=== PATIENT | male | born 1935 | race Caucasian/White ===

== ENCOUNTER 2018-01-14 22:13 | Inpatient (IN) | payer MEDICARE, BC ==
[2018-01-15 00:12] LABS: ADD MAN DIFF? NO
[2018-01-15 00:19] LABS: BASOPHIL # 0.1 10^3/ul (0.0-0.1); BASOPHILS % 0.4 % (0.0-2.0); EOSINOPHILS # 0.1 10^3/ul (0.0-0.5); EOSINOPHILS % 0.4 % (0.0-7.0); HEMOGLOBIN 14.2 g/dl (14.0-18.0); IMMATURE GRANS #M 0.04 10^3/ul; IMMATURE GRANS % (M) 0.3 %; LYMPHOCYTES # 3.4 10^3/ul (0.8-2.9); LYMPHOCYTES % 24.9 % (15.0-51.0); MEAN CORPUSCULAR HEMOGLOBIN 26.2 pg (29.0-33.0); MEAN CORPUSCULAR HGB CONC 31.6 g/dl (32.0-37.0); MEAN CORPUSCULAR VOLUME 83.2 fl (82.0-101.0); MEAN PLATELET VOLUME 10.8 fl (7.4-10.4); MONOCYTE # 1.2 10^3/ul (0.3-0.9); MONOCYTES % 8.7 % (0.0-11.0); NEUTROPHILS % 65.3 % (39.0-77.0); PLATELET COUNT 263 10^3/UL (140-415); RED BLOOD COUNT 5.41 10^6/ul (4.70-6.10)
[2018-01-15 00:19] LABS: WHITE BLOOD COUNT 13.7 10^3/ul (4.8-10.8)
[2018-01-15 00:36] LABS: INR 1.02; PROTIME 13.5 Sec (11.9-14.9); PT RATIO 1.1
[2018-01-15 00:37] LABS: PARTIAL THROMBOPLASTIN TIME 27.9 Sec (25.0-35.0)
[2018-01-15 00:41] LABS: ALANINE AMINOTRANSFERASE 25 IU/L (13-69); ALBUMIN 4.4 g/dl (3.3-4.9); ALBUMIN/GLOBULIN RATIO 0.95; ALKALINE PHOSPHATASE 125 IU/L (42-121); ANION GAP 17 (8-16); ASPARTATE AMINO TRANSFERASE 25 IU/L (15-46); BILIRUBIN,INDIRECT 0.6 mg/dl (0-1.1); BILIRUBIN,TOTAL 0.6 mg/dl (0.2-1.3); BLOOD UREA NITROGEN 17 mg/dl (7-20); CALCIUM 9.7 mg/dl (8.4-10.2); CARBON DIOXIDE 28 mmol/L (21-31); CHLORIDE 98 mmol/L (97-110); CREATININE 0.83 mg/dl (0.61-1.24); GLUCOSE 185 mg/dl (70-220); POTASSIUM 4.2 mmol/L (3.5-5.1); SODIUM 139 mmol/L (135-144)
[2018-01-15 00:44] LABS: LACTIC ACID 2.3 mmol/L (0.5-2.0)
[2018-01-15 00:52] LABS: TROPONIN-I 0.047 ng/ml (0.000-0.120)
[2018-01-15] MEDS: LEVOFLOXACIN 750MG/D5W (PMX) 150 ML IVPB (01:56)
[2018-01-15] MEDS: SODIUM CHLORIDE 0.9% 1L BAG IV* (01:56)
[2018-01-15] MEDS: VANCOMYCIN 1 GM (PMX) 250 ML IVPB (01:58)
[2018-01-15 04:14] LABS: LACTIC ACID 2.6 mmol/L (0.5-2.0)
[2018-01-15] MEDS ORDERED: MAGNESIUM HYDROXIDE 30ML CUP PO (05:00)
[2018-01-15] MEDS ORDERED: VANCOMYCIN IV PER PHARMACY XX (05:00)
[2018-01-15] MEDS ORDERED: ACETAMINOPHEN 500 MG TAB PO (05:00)
[2018-01-15] MEDS ORDERED: BISACODYL 10 MG SUPP PR (05:00)
[2018-01-15] MEDS ORDERED: ACETAMINOPHEN 325 MG TAB PO (05:00)
[2018-01-15] MEDS: SOD CHLORIDE 0.45% 1,000 ML IV ×3 (05:52→23:06)
[2018-01-15] MEDS ORDERED: DEXTROSE 50% 50 ML SYRINGE IV ×2 (06:00)
[2018-01-15] MEDS ORDERED: INSULIN DETEMIR [LEVEMIR] (100 UNITS/ML) SYG SC (06:00)
[2018-01-15] MEDS ORDERED: GLUCOSE GEL 15 GRAM TUBE PO (06:00)
[2018-01-15] MEDS ORDERED: GLUCOSE GEL 15 GRAM TUBE BUCCAL (06:00)
[2018-01-15] MEDS ORDERED: GLUCAGON 1 MG INJ IM (06:00)
[2018-01-15] MEDS ORDERED: PENDING SANTYL ORDER FOR WOUND CARE XX (07:30)
[2018-01-15] MEDS: INSULIN ASPART [NOVOLOG] 3 ML PEN SC ×4 (08:00→20:35)
[2018-01-15] MEDS: ALBUTEROL/IPRATROPIUM (NEB) 3 ML AMP HHN ×3 (08:16→19:24)
[2018-01-15] MEDS ORDERED: [UNRECOGNIZED DRUG - OTHER] PO (09:00)
[2018-01-15] MEDS ORDERED: NUT TX GLUC INTOLER LAC FR SOY PO (09:00)
[2018-01-15] MEDS ORDERED: NON-FORMULARY/PATIENT OWN MED (Clopidogrel Bisulfate* 75 MG) PO (09:00)
[2018-01-15] MEDS ORDERED: NON-FORMULARY/PATIENT OWN MED (Multivitamin with Minerals (Multivitamins with Minerals) 1 PO (09:00)
[2018-01-15] MEDS ORDERED: NON-FORMULARY/PATIENT OWN MED (Cranberry Extract (Cranberry) 425 MG) PO (09:00)
[2018-01-15] MEDS: CLOPIDOGREL 75 MG TAB PO (09:08)
[2018-01-15] MEDS: MULTIVITAMINS/MINERALS TAB PO (09:08)
[2018-01-15] MEDS: CHOLECALCIFEROL 1,000 UNIT TAB PO (09:08)
[2018-01-15] MEDS: METOPROLOL (XL) 25 MG TAB PO (09:08)
[2018-01-15] MEDS: ASCORBIC ACID 500 MG TAB PO (09:08)
[2018-01-15] MEDS: ENOXAPARIN 30 MG/0.3 ML SYG SC (09:09)
[2018-01-15] MEDS: INSULIN DETEMIR [LEVEMIR] (100 UNITS/ML) SYG SC ×2 (09:09→21:00)
[2018-01-15] MEDS: VANCOMYCIN 1.25 GM in SOD CHLORIDE 0.9% 250 ML IVPB (09:20)
[2018-01-15 10:28] LABS: ADD MAN DIFF? NO
[2018-01-15 10:44] LABS: BASOPHILS % 0.3 % (0.0-2.0); EOSINOPHILS # 0.1 10^3/ul (0.0-0.5); EOSINOPHILS % 0.7 % (0.0-7.0); HEMATOCRIT 37.4 % (42.0-52.0); HEMOGLOBIN 11.9 g/dl (14.0-18.0); LYMPHOCYTES # 2.3 10^3/ul (0.8-2.9); LYMPHOCYTES % 22.3 % (15.0-51.0); MEAN CORPUSCULAR HEMOGLOBIN 26.2 pg (29.0-33.0); MEAN CORPUSCULAR HGB CONC 31.8 g/dl (32.0-37.0); MEAN CORPUSCULAR VOLUME 82.4 fl (82.0-101.0); MEAN PLATELET VOLUME 10.9 fl (7.4-10.4); MONOCYTE # 1.5 10^3/ul (0.3-0.9); MONOCYTES % 14.3 % (0.0-11.0); NEUTROPHIL # 6.3 10^3/ul (1.6-7.5); PLATELET COUNT 206 10^3/UL (140-415); RED BLOOD COUNT 4.54 10^6/ul (4.70-6.10); RED CELL DISTRIBUTION WIDTH 15.2 % (11.5-14.5)
[2018-01-15 10:44] LABS: WHITE BLOOD COUNT 10.2 10^3/ul (4.8-10.8)
[2018-01-15 10:59] LABS: LACTIC ACID 1.2 mmol/L (0.5-2.0)
[2018-01-15 11:09] LABS: ANION GAP 15 (8-16); BLOOD UREA NITROGEN 14 mg/dl (7-20); CALCIUM 8.8 mg/dl (8.4-10.2); CARBON DIOXIDE 25 mmol/L (21-31); CHLORIDE 106 mmol/L (97-110); CREATININE 0.71 mg/dl (0.61-1.24); GLUCOSE 132 mg/dl (70-220); SODIUM 142 mmol/L (135-144)
[2018-01-15] MEDS: DIGOXIN 0.125 MG TAB PO (13:18)
[2018-01-15] MEDS: metFORMIN 500 MG TAB PO (17:26)
[2018-01-15 17:46] LABS: ADD UMIC NO; UR ASCORBIC ACID 40 mg/dL (NEGATIVE); UR BILIRUBIN (Dip) NEGATIVE (NEGATIVE); UR BLOOD (Dip) NEGATIVE (NEGATIVE); UR CLARITY CLEAR (CLEAR); UR COLOR YELLOW (YELLOW); UR GLUCOSE (Dip) NEGATIVE (NEGATIVE); UR KETONES (Dip) NEGATIVE (NEGATIVE); UR LEUKOCYTE ESTERASE (Dip) NEGATIVE Leu/ul (NEGATIVE); UR NITRITE (Dip) NEGATIVE (NEGATIVE); UR SPECIFIC GRAVITY (Dip) 1.009 (1.003-1.030); UR TOTAL PROTEIN (Dip) NEGATIVE (NEGATIVE); UR UROBILINOGEN (Dip) NEGATIVE (NEGATIVE)
[2018-01-15 19:50] LABS: CREATINE KINASE 32 IU/L (23-200)
[2018-01-15 20:00] LABS: CK INDEX 2.3; CK-MB 0.75 ng/ml (0.0-2.4); TROPONIN-I 0.035 ng/ml (0.000-0.120)
[2018-01-15] MEDS: DOCUSATE SODIUM 100 MG CAP PO (20:35)
[2018-01-15] MEDS: MIRTAZAPINE 15 MG TAB PO (20:36)
[2018-01-15] MEDS: QUETIAPINE 100 MG TAB PO (20:36)
[2018-01-15] MEDS: METOPROLOL (XL) 50 MG TAB PO (20:36)
[2018-01-15] MEDS: ATORVASTATIN 10 MG TAB PO (20:36)
[2018-01-15] MEDS: ARTIFICIAL TEARS 15 ML OPH BOTH EYES (20:37)
[2018-01-16 01:20] LABS: CREATINE KINASE 33 IU/L (23-200)
[2018-01-16 01:36] LABS: CK INDEX 2.4; CK-MB 0.79 ng/ml (0.0-2.4); TROPONIN-I 0.042 ng/ml (0.000-0.120)
[2018-01-16] MEDS: ACCU-CHEK XX (01:56)
[2018-01-16] MEDS: ALBUTEROL/IPRATROPIUM (NEB) 3 ML AMP HHN ×4 (02:13→21:08)
[2018-01-16] MEDS: LEVOFLOXACIN 750MG/D5W (PMX) 150 ML IVPB (06:23)
[2018-01-16] MEDS: INSULIN ASPART [NOVOLOG] 3 ML PEN SC ×4 (08:00→21:00)
[2018-01-16] MEDS ORDERED: VANCOMYCIN 1 GM 250 ML IVPB (08:00)
[2018-01-16] MEDS: metFORMIN 500 MG TAB PO ×2 (08:57→18:27)
[2018-01-16] MEDS: LINAGLIPTIN 5 MG TABLET PO (08:57)
[2018-01-16] MEDS: MULTIVITAMINS/MINERALS TAB PO (08:58)
[2018-01-16] MEDS: CLOPIDOGREL 75 MG TAB PO (08:59)
[2018-01-16] MEDS: CHOLECALCIFEROL 1,000 UNIT TAB PO (08:59)
[2018-01-16] MEDS: ARTIFICIAL TEARS 15 ML OPH BOTH EYES ×2 (08:59→21:21)
[2018-01-16] MEDS: ASCORBIC ACID 500 MG TAB PO (08:59)
[2018-01-16] MEDS: VANCOMYCIN 1.25 GM in SOD CHLORIDE 0.9% 250 ML IVPB (08:59)
[2018-01-16] MEDS: INSULIN DETEMIR [LEVEMIR] (100 UNITS/ML) SYG SC ×2 (09:01→21:00)
[2018-01-16] MEDS: METOPROLOL (XL) 50 MG TAB PO ×2 (09:01→21:20)
[2018-01-16] MEDS: ENOXAPARIN 40 MG/0.4 ML SYG SC (09:02)
[2018-01-16 10:05] LABS: ADD MAN DIFF? NO; BASOPHILS % 0.3 % (0.0-2.0); EOSINOPHILS # 0.1 10^3/ul (0.0-0.5); EOSINOPHILS % 1.3 % (0.0-7.0); HEMATOCRIT 40.8 % (42.0-52.0); HEMOGLOBIN 12.8 g/dl (14.0-18.0); LYMPHOCYTES # 2.3 10^3/ul (0.8-2.9); LYMPHOCYTES % 25.3 % (15.0-51.0); MEAN CORPUSCULAR HEMOGLOBIN 26.2 pg (29.0-33.0); MEAN CORPUSCULAR HGB CONC 31.4 g/dl (32.0-37.0); MEAN CORPUSCULAR VOLUME 83.4 fl (82.0-101.0); MEAN PLATELET VOLUME 10.9 fl (7.4-10.4); NEUTROPHIL # 5.5 10^3/ul (1.6-7.5); NEUTROPHILS % 61.8 % (39.0-77.0); PLATELET COUNT 219 10^3/UL (140-415); RED BLOOD COUNT 4.89 10^6/ul (4.70-6.10); RED CELL DISTRIBUTION WIDTH 15.2 % (11.5-14.5)
[2018-01-16 10:05] LABS: WHITE BLOOD COUNT 8.9 10^3/ul (4.8-10.8)
[2018-01-16 10:21] LABS: ANION GAP 15 (8-16); BLOOD UREA NITROGEN 12 mg/dl (7-20); CALCIUM 9.1 mg/dl (8.4-10.2); CARBON DIOXIDE 28 mmol/L (21-31); CHLORIDE 105 mmol/L (97-110); CREATININE 0.76 mg/dl (0.61-1.24); GLUCOSE 116 mg/dl (70-220); SODIUM 144 mmol/L (135-144)
[2018-01-16 10:25] LABS: CHOLESTEROL 104 mg/dl (100-200)
[2018-01-16 10:25] LABS: CHOL/HDL RATIO 4.9 RATIO; HDL CHOLESTEROL 21 mg/dl (31-75); LDL CHOLESTEROL,CALCULATED 70 mg/dl; TRIGLYCERIDES 63 mg/dl (0-149)
[2018-01-16 10:29] LABS: CREATINE KINASE 58 IU/L (23-200)
[2018-01-16 10:34] LABS: CK INDEX 2.4; CK-MB 1.42 ng/ml (0.0-2.4); TROPONIN-I 0.042 ng/ml (0.000-0.120)
[2018-01-16] MEDS: DIGOXIN 0.125 MG TAB PO (12:33)
[2018-01-16] MEDS: SOD CHLORIDE 0.45% 1,000 ML IV (15:10)
[2018-01-16] MEDS: QUETIAPINE 100 MG TAB PO (21:19)
[2018-01-16] MEDS: DOCUSATE SODIUM 100 MG CAP PO (21:19)
[2018-01-16] MEDS: MIRTAZAPINE 15 MG TAB PO (21:20)
[2018-01-16] MEDS: ATORVASTATIN 10 MG TAB PO (21:28)
[2018-01-16] MEDS: METHYLPREDNISOLONE 125 MG INJ IV (23:14)
[2018-01-16] MEDS: LORAZEPAM 2 MG INJ IV (23:37)
[2018-01-17] MEDS: ALBUTEROL/IPRATROPIUM (NEB) 3 ML AMP HHN ×6 (01:05→20:15)
[2018-01-17] MEDS: ACCU-CHEK XX (01:55)
[2018-01-17] MEDS: LEVOFLOXACIN 750MG/D5W (PMX) 150 ML IVPB (05:29)
[2018-01-17 06:11] LABS: ADD MAN DIFF? NO
[2018-01-17 06:43] LABS: ABNORMAL IP MESSAGE 1; BASOPHILS % 0.1 % (0.0-2.0); EOSINOPHILS % 0.1 % (0.0-7.0); HEMATOCRIT 39.4 % (42.0-52.0); HEMOGLOBIN 12.7 g/dl (14.0-18.0); LYMPHOCYTES # 0.5 10^3/ul (0.8-2.9); LYMPHOCYTES % 6.5 % (15.0-51.0); MEAN CORPUSCULAR HEMOGLOBIN 26.7 pg (29.0-33.0); MEAN CORPUSCULAR HGB CONC 32.2 g/dl (32.0-37.0); MEAN CORPUSCULAR VOLUME 82.8 fl (82.0-101.0); MEAN PLATELET VOLUME 10.9 fl (7.4-10.4); MONOCYTE # 0.1 10^3/ul (0.3-0.9); NEUTROPHIL # 7.5 10^3/ul (1.6-7.5); NEUTROPHILS % 92.1 % (39.0-77.0); PLATELET COUNT 234 10^3/UL (140-415); POSITIVE DIFF @See below; RED BLOOD COUNT 4.76 10^6/ul (4.70-6.10); RED CELL DISTRIBUTION WIDTH 14.9 % (11.5-14.5)
[2018-01-17 06:43] LABS: WHITE BLOOD COUNT 8.2 10^3/ul (4.8-10.8)
[2018-01-17 07:05] LABS: ANION GAP 17 (8-16); BLOOD UREA NITROGEN 18 mg/dl (7-20); CALCIUM 9.3 mg/dl (8.4-10.2); CARBON DIOXIDE 23 mmol/L (21-31); CHLORIDE 109 mmol/L (97-110); CREATININE 0.64 mg/dl (0.61-1.24); GLUCOSE 107 mg/dl (70-220); POTASSIUM 4.1 mmol/L (3.5-5.1); SODIUM 145 mmol/L (135-144)
[2018-01-17 07:16] LABS: DIGOXIN 0.6 ng/ml (1.0-2.0)
[2018-01-17] MEDS: metFORMIN 500 MG TAB PO ×2 (08:00→17:07)
[2018-01-17] MEDS: INSULIN ASPART [NOVOLOG] 3 ML PEN SC ×4 (08:00→21:33)
[2018-01-17 08:12] LABS: B-TYPE NATRIURETIC PEPTIDE 3800 PG/ML (0-450)
[2018-01-17] MEDS: FUROSEMIDE 20 MG INJ IV (08:51)
[2018-01-17] MEDS: METHYLPREDNISOLONE 125 MG INJ IV (08:51)
[2018-01-17] MEDS: VANCOMYCIN 1.25 GM in SOD CHLORIDE 0.9% 250 ML IVPB (08:52)
[2018-01-17] MEDS: INSULIN DETEMIR [LEVEMIR] (100 UNITS/ML) SYG SC ×3 (09:00→21:34)
[2018-01-17] MEDS: MULTIVITAMINS/MINERALS TAB PO ×2 (09:00→12:04)
[2018-01-17] MEDS: CLOPIDOGREL 75 MG TAB PO ×2 (09:00→12:03)
[2018-01-17] MEDS: ARTIFICIAL TEARS 15 ML OPH BOTH EYES ×3 (09:00→21:29)
[2018-01-17] MEDS: BENAZEPRIL 10 MG TAB PO ×2 (09:00→12:03)
[2018-01-17] MEDS: ASCORBIC ACID 500 MG TAB PO ×2 (09:00→12:04)
[2018-01-17] MEDS: METOPROLOL (XL) 50 MG TAB PO ×3 (09:00→21:00)
[2018-01-17] MEDS: CHOLECALCIFEROL 1,000 UNIT TAB PO ×2 (09:00→12:03)
[2018-01-17] MEDS: LINAGLIPTIN 5 MG TABLET PO ×2 (09:00→12:04)
[2018-01-17] MEDS: ENOXAPARIN 60 MG/0.6 ML SYG SC ×2 (12:00→21:32)
[2018-01-17] MEDS: DIGOXIN 0.125 MG TAB PO (12:06)
[2018-01-17] MEDS: MIRTAZAPINE 15 MG TAB PO (21:27)
[2018-01-17] MEDS: DOCUSATE SODIUM 100 MG CAP PO (21:28)
[2018-01-17] MEDS: QUETIAPINE 100 MG TAB PO (21:28)
[2018-01-17] MEDS: ATORVASTATIN 10 MG TAB PO (21:28)
[2018-01-17] MEDS: clonAZEPAM 0.5 MG TAB PO (22:51)
[2018-01-17] MEDS: LORAZEPAM 2 MG INJ IV (23:48)
[2018-01-18] MEDS: ALBUTEROL/IPRATROPIUM (NEB) 3 ML AMP HHN ×6 (01:13→20:52)
[2018-01-18] MEDS: ACCU-CHEK XX (02:16)
[2018-01-18] MEDS: LEVOFLOXACIN 750MG/D5W (PMX) 150 ML IVPB (05:15)
[2018-01-18] MEDS: INSULIN ASPART [NOVOLOG] 3 ML PEN SC ×4 (08:00→20:50)
[2018-01-18] MEDS: ARTIFICIAL TEARS 15 ML OPH BOTH EYES ×2 (08:09→21:00)
[2018-01-18] MEDS: MULTIVITAMINS/MINERALS TAB PO (08:09)
[2018-01-18] MEDS: CHOLECALCIFEROL 1,000 UNIT TAB PO (08:09)
[2018-01-18] MEDS: metFORMIN 500 MG TAB PO ×2 (08:09→17:07)
[2018-01-18] MEDS: ASCORBIC ACID 500 MG TAB PO (08:09)
[2018-01-18] MEDS: CLOPIDOGREL 75 MG TAB PO (08:10)
[2018-01-18] MEDS: LINAGLIPTIN 5 MG TABLET PO (08:10)
[2018-01-18] MEDS: BENAZEPRIL 10 MG TAB PO (08:10)
[2018-01-18] MEDS: METOPROLOL (XL) 50 MG TAB PO ×2 (08:10→20:44)
[2018-01-18] MEDS: FUROSEMIDE 20 MG INJ IV (08:11)
[2018-01-18] MEDS: METHYLPREDNISOLONE 125 MG INJ IV (08:11)
[2018-01-18] MEDS: ENOXAPARIN 60 MG/0.6 ML SYG SC ×2 (08:14→20:50)
[2018-01-18] MEDS: INSULIN DETEMIR [LEVEMIR] (100 UNITS/ML) SYG SC ×2 (08:15→20:50)
[2018-01-18 08:56] LABS: ADD MAN DIFF? NO
[2018-01-18 09:11] LABS: BASOPHILS % 0.1 % (0.0-2.0); HEMATOCRIT 34.9 % (42.0-52.0); HEMOGLOBIN 11.3 g/dl (14.0-18.0); LYMPHOCYTES # 1.4 10^3/ul (0.8-2.9); LYMPHOCYTES % 11.5 % (15.0-51.0); MEAN CORPUSCULAR HEMOGLOBIN 26.3 pg (29.0-33.0); MEAN CORPUSCULAR HGB CONC 32.4 g/dl (32.0-37.0); MEAN CORPUSCULAR VOLUME 81.2 fl (82.0-101.0); MEAN PLATELET VOLUME 10.7 fl (7.4-10.4); MONOCYTE # 0.8 10^3/ul (0.3-0.9); MONOCYTES % 6.9 % (0.0-11.0); NEUTROPHIL # 9.5 10^3/ul (1.6-7.5); NEUTROPHILS % 80.9 % (39.0-77.0); PLATELET COUNT 257 10^3/UL (140-415); RED CELL DISTRIBUTION WIDTH 15.1 % (11.5-14.5)
[2018-01-18 09:11] LABS: WHITE BLOOD COUNT 11.8 10^3/ul (4.8-10.8)
[2018-01-18 09:26] LABS: ANION GAP 14 (8-16); BLOOD UREA NITROGEN 31 mg/dl (7-20); CARBON DIOXIDE 25 mmol/L (21-31); CHLORIDE 108 mmol/L (97-110); CREATININE 0.89 mg/dl (0.61-1.24); GLUCOSE 68 mg/dl (70-220); POTASSIUM 3.2 mmol/L (3.5-5.1); SODIUM 144 mmol/L (135-144)
[2018-01-18 09:30] LABS: VANCOMYCIN,TROUGH 10.2 ug/ml (10.0-20.0)
[2018-01-18] MEDS: DIGOXIN 0.125 MG TAB PO (13:35)
[2018-01-18] MEDS ORDERED: LORAZEPAM 2 MG INJ IV (16:30)
[2018-01-18] MEDS ORDERED: POTASSIUM CHLORIDE (1.33 MEQ/ML PO SYG) PO (16:30)
[2018-01-18] MEDS: POTASSIUM CHLORIDE 20 MEQ POWDER FOR ORAL SOLN PO (17:11)
[2018-01-18] MEDS: DOCUSATE SODIUM 100 MG CAP PO (20:43)
[2018-01-18] MEDS: QUETIAPINE 25 MG TAB PO (20:43)
[2018-01-18] MEDS: MIRTAZAPINE 15 MG TAB PO (20:43)
[2018-01-18] MEDS: ATORVASTATIN 10 MG TAB PO (20:43)
[2018-01-18] MEDS: clonAZEPAM 0.5 MG TAB PO (20:43)
[2018-01-19] MEDS: ALBUTEROL/IPRATROPIUM (NEB) 3 ML AMP HHN ×6 (00:49→20:26)
[2018-01-19] MEDS: ACCU-CHEK XX (02:00)
[2018-01-19] MEDS: LEVOFLOXACIN 750MG/D5W (PMX) 150 ML IVPB (05:31)
[2018-01-19] MEDS: INSULIN ASPART [NOVOLOG] 3 ML PEN SC ×4 (08:00→21:00)
[2018-01-19] MEDS: INSULIN DETEMIR [LEVEMIR] (100 UNITS/ML) SYG SC ×2 (08:41→21:00)
[2018-01-19] MEDS: ENOXAPARIN 60 MG/0.6 ML SYG SC ×2 (08:42→20:04)
[2018-01-19] MEDS: POTASSIUM CHLORIDE 20 MEQ POWDER FOR ORAL SOLN PO (08:42)
[2018-01-19] MEDS: CHOLECALCIFEROL 1,000 UNIT TAB PO (08:43)
[2018-01-19] MEDS: BENAZEPRIL 10 MG TAB PO (08:43)
[2018-01-19] MEDS: CLOPIDOGREL 75 MG TAB PO (08:43)
[2018-01-19] MEDS: FUROSEMIDE 20 MG TAB PO (08:43)
[2018-01-19] MEDS: METOPROLOL (XL) 50 MG TAB PO ×2 (08:43→19:52)
[2018-01-19] MEDS: METHYLPREDNISOLONE 40 MG INJ IV (08:43)
[2018-01-19] MEDS: LINAGLIPTIN 5 MG TABLET PO (08:43)
[2018-01-19] MEDS: ASCORBIC ACID 500 MG TAB PO (08:43)
[2018-01-19] MEDS: MULTIVITAMINS/MINERALS TAB PO (08:43)
[2018-01-19] MEDS: metFORMIN 500 MG TAB PO ×2 (08:47→17:53)
[2018-01-19] MEDS: ARTIFICIAL TEARS 15 ML OPH BOTH EYES ×2 (09:00→19:54)
[2018-01-19 11:33] LABS: ADD MAN DIFF? NO
[2018-01-19 11:36] LABS: BASOPHILS % 0.1 % (0.0-2.0); EOSINOPHILS % 0.1 % (0.0-7.0); HEMATOCRIT 41.8 % (42.0-52.0); HEMOGLOBIN 13.2 g/dl (14.0-18.0); LYMPHOCYTES # 1.4 10^3/ul (0.8-2.9); LYMPHOCYTES % 8.1 % (15.0-51.0); MEAN CORPUSCULAR HEMOGLOBIN 26.1 pg (29.0-33.0); MEAN CORPUSCULAR HGB CONC 31.6 g/dl (32.0-37.0); MEAN CORPUSCULAR VOLUME 82.6 fl (82.0-101.0); MEAN PLATELET VOLUME 10.3 fl (7.4-10.4); MONOCYTE # 1.1 10^3/ul (0.3-0.9); MONOCYTES % 6.5 % (0.0-11.0); NEUTROPHIL # 14.6 10^3/ul (1.6-7.5); NEUTROPHILS % 84.7 % (39.0-77.0); PLATELET COUNT 246 10^3/UL (140-415); RED BLOOD COUNT 5.06 10^6/ul (4.70-6.10); RED CELL DISTRIBUTION WIDTH 15.5 % (11.5-14.5)
[2018-01-19 11:36] LABS: WHITE BLOOD COUNT 17.2 10^3/ul (4.8-10.8)
[2018-01-19] MEDS: DIGOXIN 0.125 MG TAB PO (12:47)
[2018-01-19 12:50] LABS: ANION GAP 13 (8-16); BLOOD UREA NITROGEN 25 mg/dl (7-20); CALCIUM 9.2 mg/dl (8.4-10.2); CARBON DIOXIDE 28 mmol/L (21-31); CHLORIDE 106 mmol/L (97-110); CREATININE 0.78 mg/dl (0.61-1.24); GLUCOSE 116 mg/dl (70-220); POTASSIUM 3.9 mmol/L (3.5-5.1); SODIUM 143 mmol/L (135-144)
[2018-01-19] MEDS: ATORVASTATIN 10 MG TAB PO (19:53)
[2018-01-19] MEDS: clonAZEPAM 0.5 MG TAB PO (19:53)
[2018-01-19] MEDS: DOCUSATE SODIUM 100 MG CAP PO (19:53)
[2018-01-19] MEDS: MIRTAZAPINE 15 MG TAB PO (19:53)
[2018-01-19] MEDS: QUETIAPINE 25 MG TAB PO ×2 (19:53→21:29)
[2018-01-20] MEDS: DEXTROSE 5%-0.45% NACL 1,000 ML IV (00:41)
[2018-01-20] MEDS: ALBUTEROL/IPRATROPIUM (NEB) 3 ML AMP HHN ×6 (00:46→20:11)
[2018-01-20] MEDS: ACCU-CHEK XX (02:00)
[2018-01-20] MEDS: LEVOFLOXACIN 750MG/D5W (PMX) 150 ML IVPB (06:29)
[2018-01-20] MEDS ORDERED: PROPOFOL 200 MG INJ (07:00)
[2018-01-20] MEDS ORDERED: LIDOCAINE 2% (SDV) 5 ML INJ (07:00)
[2018-01-20 07:36] LABS: ADD MAN DIFF? NO
[2018-01-20 07:39] LABS: BASOPHILS % 0.1 % (0.0-2.0); EOSINOPHILS % 0.2 % (0.0-7.0); HEMATOCRIT 37.1 % (42.0-52.0); HEMOGLOBIN 11.8 g/dl (14.0-18.0); LYMPHOCYTES # 2.8 10^3/ul (0.8-2.9); LYMPHOCYTES % 23.1 % (15.0-51.0); MEAN CORPUSCULAR HEMOGLOBIN 26.4 pg (29.0-33.0); MEAN CORPUSCULAR HGB CONC 31.8 g/dl (32.0-37.0); MEAN PLATELET VOLUME 10.4 fl (7.4-10.4); MONOCYTE # 1.2 10^3/ul (0.3-0.9); MONOCYTES % 9.7 % (0.0-11.0); NEUTROPHILS % 66.5 % (39.0-77.0); PLATELET COUNT 277 10^3/UL (140-415); RED BLOOD COUNT 4.47 10^6/ul (4.70-6.10); RED CELL DISTRIBUTION WIDTH 15.1 % (11.5-14.5)
[2018-01-20] MEDS: metFORMIN 500 MG TAB PO ×2 (08:00→17:27)
[2018-01-20] MEDS: INSULIN ASPART [NOVOLOG] 3 ML PEN SC ×4 (08:00→19:49)
[2018-01-20 08:02] LABS: ANION GAP 13 (8-16); BLOOD UREA NITROGEN 20 mg/dl (7-20); CARBON DIOXIDE 26 mmol/L (21-31); CHLORIDE 108 mmol/L (97-110); CREATININE 0.71 mg/dl (0.61-1.24); GLUCOSE 110 mg/dl (70-220); POTASSIUM 3.8 mmol/L (3.5-5.1); SODIUM 143 mmol/L (135-144)
[2018-01-20] MEDS: INSULIN DETEMIR [LEVEMIR] (100 UNITS/ML) SYG SC ×2 (08:16→19:50)
[2018-01-20] MEDS: METOPROLOL (XL) 50 MG TAB PO ×3 (09:00→21:10)
[2018-01-20] MEDS: ENOXAPARIN 60 MG/0.6 ML SYG SC ×2 (09:00→19:51)
[2018-01-20] MEDS: CLOPIDOGREL 75 MG TAB PO (09:00)
[2018-01-20] MEDS: ARTIFICIAL TEARS 15 ML OPH BOTH EYES ×2 (09:00→19:35)
[2018-01-20] MEDS: METHYLPREDNISOLONE 40 MG INJ IV (10:58)
[2018-01-20] MEDS: BENAZEPRIL 10 MG TAB PO (11:01)
[2018-01-20] MEDS: ASCORBIC ACID 500 MG TAB PO (11:01)
[2018-01-20] MEDS: CHOLECALCIFEROL 1,000 UNIT TAB PO (11:01)
[2018-01-20] MEDS: MULTIVITAMINS/MINERALS TAB PO (11:01)
[2018-01-20] MEDS: LINAGLIPTIN 5 MG TABLET PO (11:01)
[2018-01-20] MEDS: FUROSEMIDE 20 MG TAB PO (11:01)
[2018-01-20] MEDS: POTASSIUM CHLORIDE 20 MEQ POWDER FOR ORAL SOLN PO (11:02)
[2018-01-20] MEDS: DIGOXIN 0.125 MG TAB PO (13:00)
[2018-01-20] MEDS: PROPOFOL 20 ML (13:35)
[2018-01-20] MEDS: MIRTAZAPINE 15 MG TAB PO (19:35)
[2018-01-20] MEDS: QUETIAPINE 25 MG TAB PO (19:35)
[2018-01-20] MEDS: DOCUSATE SODIUM 100 MG CAP PO (19:35)
[2018-01-20] MEDS: ATORVASTATIN 10 MG TAB PO (19:35)
[2018-01-20] MEDS: clonAZEPAM 0.5 MG TAB PO (21:10)
[2018-01-21] MEDS: ALBUTEROL/IPRATROPIUM (NEB) 3 ML AMP HHN ×6 (00:19→21:00)
[2018-01-21] MEDS: ACCU-CHEK XX (02:22)
[2018-01-21] MEDS: metFORMIN 500 MG TAB PO ×2 (08:00→17:56)
[2018-01-21] MEDS: INSULIN ASPART [NOVOLOG] 3 ML PEN SC ×4 (08:00→20:34)
[2018-01-21] MEDS: CHOLECALCIFEROL 1,000 UNIT TAB PO (09:00)
[2018-01-21] MEDS: POTASSIUM CHLORIDE 20 MEQ POWDER FOR ORAL SOLN PO (09:00)
[2018-01-21] MEDS: LINAGLIPTIN 5 MG TABLET PO (09:00)
[2018-01-21] MEDS: BENAZEPRIL 10 MG TAB PO (09:00)
[2018-01-21] MEDS: ENOXAPARIN 60 MG/0.6 ML SYG SC ×2 (09:00→20:33)
[2018-01-21] MEDS: FUROSEMIDE 20 MG TAB PO (09:00)
[2018-01-21] MEDS: ARTIFICIAL TEARS 15 ML OPH BOTH EYES ×2 (09:00→20:33)
[2018-01-21] MEDS: CLOPIDOGREL 75 MG TAB PO (09:00)
[2018-01-21] MEDS: INSULIN DETEMIR [LEVEMIR] (100 UNITS/ML) SYG SC ×2 (09:00→20:34)
[2018-01-21] MEDS: MULTIVITAMINS/MINERALS TAB PO (09:00)
[2018-01-21] MEDS: METHYLPREDNISOLONE 40 MG INJ IV (09:00)
[2018-01-21] MEDS: ASCORBIC ACID 500 MG TAB PO (09:00)
[2018-01-21] MEDS: METOPROLOL (XL) 50 MG TAB PO ×2 (09:00→20:33)
[2018-01-21] MEDS: GLUCOSE GEL 15 GRAM TUBE PO (11:35)
[2018-01-21] MEDS: DIGOXIN 0.125 MG TAB PO (12:32)
[2018-01-21 14:23] LABS: ADD MAN DIFF? NO
[2018-01-21 14:25] LABS: BASOPHILS % 0.2 % (0.0-2.0); EOSINOPHILS # 0.1 10^3/ul (0.0-0.5); EOSINOPHILS % 0.8 % (0.0-7.0); HEMATOCRIT 44.8 % (42.0-52.0); LYMPHOCYTES # 3.2 10^3/ul (0.8-2.9); LYMPHOCYTES % 28.3 % (15.0-51.0); MEAN CORPUSCULAR HGB CONC 31.3 g/dl (32.0-37.0); MEAN CORPUSCULAR VOLUME 83.1 fl (82.0-101.0); MEAN PLATELET VOLUME 10.2 fl (7.4-10.4); MONOCYTE # 0.9 10^3/ul (0.3-0.9); NEUTROPHIL # 7.1 10^3/ul (1.6-7.5); NEUTROPHILS % 62.3 % (39.0-77.0); PLATELET COUNT 278 10^3/UL (140-415); POSITIVE DIFF @See below; RED BLOOD COUNT 5.39 10^6/ul (4.70-6.10); RED CELL DISTRIBUTION WIDTH 15.4 % (11.5-14.5)
[2018-01-21 14:25] LABS: WHITE BLOOD COUNT 11.4 10^3/ul (4.8-10.8)
[2018-01-21 14:51] LABS: ANION GAP 14 (8-16); BLOOD UREA NITROGEN 17 mg/dl (7-20); CALCIUM 9.4 mg/dl (8.4-10.2); CARBON DIOXIDE 29 mmol/L (21-31); CHLORIDE 103 mmol/L (97-110); CREATININE 0.78 mg/dl (0.61-1.24); GLUCOSE 117 mg/dl (70-220); POTASSIUM 4.1 mmol/L (3.5-5.1); SODIUM 142 mmol/L (135-144)
[2018-01-21] MEDS: clonAZEPAM 0.5 MG TAB PO (20:23)
[2018-01-21] MEDS: QUETIAPINE 25 MG TAB PO (20:24)
[2018-01-21] MEDS: MIRTAZAPINE 15 MG TAB PO (20:24)
[2018-01-21] MEDS: ATORVASTATIN 10 MG TAB PO (20:24)
[2018-01-21] MEDS: DOCUSATE SODIUM 100 MG CAP PO (20:33)
[2018-01-22] MEDS: ALBUTEROL/IPRATROPIUM (NEB) 3 ML AMP HHN ×6 (01:00→19:56)
[2018-01-22] MEDS: ACCU-CHEK XX (01:20)
[2018-01-22 08:27] LABS: ADD MAN DIFF? NO
[2018-01-22 08:28] LABS: WHITE BLOOD COUNT 11.6 10^3/ul (4.8-10.8)
[2018-01-22 08:28] LABS: BASOPHILS % 0.2 % (0.0-2.0); EOSINOPHILS # 0.3 10^3/ul (0.0-0.5); EOSINOPHILS % 2.2 % (0.0-7.0); HEMATOCRIT 43.6 % (42.0-52.0); HEMOGLOBIN 14.1 g/dl (14.0-18.0); LYMPHOCYTES # 3.6 10^3/ul (0.8-2.9); LYMPHOCYTES % 30.7 % (15.0-51.0); MEAN CORPUSCULAR HEMOGLOBIN 26.6 pg (29.0-33.0); MEAN CORPUSCULAR HGB CONC 32.3 g/dl (32.0-37.0); MEAN CORPUSCULAR VOLUME 82.1 fl (82.0-101.0); MEAN PLATELET VOLUME 9.9 fl (7.4-10.4); MONOCYTE # 0.9 10^3/ul (0.3-0.9); MONOCYTES % 7.3 % (0.0-11.0); NEUTROPHIL # 6.8 10^3/ul (1.6-7.5); NEUTROPHILS % 58.9 % (39.0-77.0); PLATELET COUNT 293 10^3/UL (140-415); RED BLOOD COUNT 5.31 10^6/ul (4.70-6.10); RED CELL DISTRIBUTION WIDTH 14.8 % (11.5-14.5)
[2018-01-22] MEDS: CLOPIDOGREL 75 MG TAB PO (09:12)
[2018-01-22 09:17] LABS: ANION GAP 14 (8-16); BLOOD UREA NITROGEN 16 mg/dl (7-20); CALCIUM 9.2 mg/dl (8.4-10.2); CARBON DIOXIDE 28 mmol/L (21-31); CHLORIDE 104 mmol/L (97-110); CREATININE 0.64 mg/dl (0.61-1.24); GLUCOSE 141 mg/dl (70-220); POTASSIUM 3.9 mmol/L (3.5-5.1); SODIUM 142 mmol/L (135-144)
[2018-01-22] MEDS: CHOLECALCIFEROL 1,000 UNIT TAB PO (09:26)
[2018-01-22] MEDS: MULTIVITAMINS/MINERALS TAB PO (09:26)
[2018-01-22] MEDS: METOPROLOL (XL) 50 MG TAB PO ×2 (09:26→20:55)
[2018-01-22] MEDS: ASCORBIC ACID 500 MG TAB PO (09:26)
[2018-01-22] MEDS: BENAZEPRIL 10 MG TAB PO ×2 (09:26→20:55)
[2018-01-22] MEDS: POTASSIUM CHLORIDE 20 MEQ POWDER FOR ORAL SOLN PO (09:27)
[2018-01-22] MEDS: METHYLPREDNISOLONE 40 MG INJ IV (09:27)
[2018-01-22] MEDS: LINAGLIPTIN 5 MG TABLET PO (09:27)
[2018-01-22] MEDS: INSULIN DETEMIR [LEVEMIR] (100 UNITS/ML) SYG SC ×2 (09:28→21:09)
[2018-01-22] MEDS: ENOXAPARIN 60 MG/0.6 ML SYG SC ×2 (09:28→20:56)
[2018-01-22] MEDS: INSULIN ASPART [NOVOLOG] 3 ML PEN SC ×4 (09:29→21:10)
[2018-01-22] MEDS: ARTIFICIAL TEARS 15 ML OPH BOTH EYES ×2 (09:34→20:55)
[2018-01-22] MEDS: metFORMIN 500 MG TAB PO ×2 (09:34→17:12)
[2018-01-22] MEDS: FUROSEMIDE 20 MG TAB PO (09:35)
[2018-01-22] MEDS: DIGOXIN 0.125 MG TAB PO (13:10)
[2018-01-22] MEDS: clonAZEPAM 0.5 MG TAB PO (19:31)
[2018-01-22] MEDS: QUETIAPINE 25 MG TAB PO ×2 (19:31→21:00)
[2018-01-22] MEDS: MIRTAZAPINE 15 MG TAB PO (19:31)
[2018-01-22] MEDS: DOCUSATE SODIUM 100 MG CAP PO (20:55)
[2018-01-22] MEDS: ATORVASTATIN 10 MG TAB PO (20:55)
[2018-01-23] MEDS: ALBUTEROL/IPRATROPIUM (NEB) 3 ML AMP HHN ×6 (00:25→21:59)
[2018-01-23] MEDS: ACCU-CHEK XX (01:39)
[2018-01-23] MEDS: INSULIN ASPART [NOVOLOG] 3 ML PEN SC ×4 (08:16→20:33)
[2018-01-23] MEDS: METHYLPREDNISOLONE 40 MG INJ IV (08:29)
[2018-01-23] MEDS: CHOLECALCIFEROL 1,000 UNIT TAB PO (08:29)
[2018-01-23] MEDS: LINAGLIPTIN 5 MG TABLET PO (08:29)
[2018-01-23] MEDS: ASCORBIC ACID 500 MG TAB PO (08:29)
[2018-01-23] MEDS: POTASSIUM CHLORIDE 20 MEQ POWDER FOR ORAL SOLN PO (08:29)
[2018-01-23] MEDS: METOPROLOL (XL) 50 MG TAB PO ×2 (08:30→20:24)
[2018-01-23] MEDS: FUROSEMIDE 20 MG TAB PO (08:30)
[2018-01-23] MEDS: CLOPIDOGREL 75 MG TAB PO (08:30)
[2018-01-23] MEDS: ARTIFICIAL TEARS 15 ML OPH BOTH EYES ×2 (08:31→22:00)
[2018-01-23] MEDS: metFORMIN 500 MG TAB PO ×2 (08:32→17:19)
[2018-01-23] MEDS: MULTIVITAMINS/MINERALS TAB PO (08:32)
[2018-01-23] MEDS: BENAZEPRIL 10 MG TAB PO ×2 (08:33→20:25)
[2018-01-23] MEDS: ENOXAPARIN 60 MG/0.6 ML SYG SC ×2 (08:38→20:33)
[2018-01-23] MEDS: INSULIN DETEMIR [LEVEMIR] (100 UNITS/ML) SYG SC ×2 (08:38→20:31)
[2018-01-23] MEDS: DIGOXIN 0.125 MG TAB PO (13:00)
[2018-01-23] MEDS: POLYETHYLENE GLYCOL 17 GM PACKET GTB (14:06)
[2018-01-23] MEDS: clonAZEPAM 0.5 MG TAB PO (17:20)
[2018-01-23] MEDS: QUETIAPINE 25 MG TAB PO (20:19)
[2018-01-23] MEDS: MIRTAZAPINE 15 MG TAB PO (20:19)
[2018-01-23] MEDS: ATORVASTATIN 10 MG TAB PO (20:19)
[2018-01-23] MEDS: DOCUSATE SODIUM 100 MG CAP PO (20:19)
[2018-01-24] MEDS: ALBUTEROL/IPRATROPIUM (NEB) 3 ML AMP HHN ×6 (01:00→21:59)
[2018-01-24] MEDS: ACCU-CHEK XX (02:00)
[2018-01-24] MEDS: INSULIN ASPART [NOVOLOG] 3 ML PEN SC ×4 (08:00→20:57)
[2018-01-24] MEDS: ENOXAPARIN 60 MG/0.6 ML SYG SC ×2 (09:00→20:46)
[2018-01-24] MEDS: ARTIFICIAL TEARS 15 ML OPH BOTH EYES ×2 (09:42→20:57)
[2018-01-24] MEDS: METOPROLOL (XL) 50 MG TAB PO ×2 (09:45→21:00)
[2018-01-24] MEDS: FUROSEMIDE 20 MG TAB PO (09:46)
[2018-01-24] MEDS: ASCORBIC ACID 500 MG TAB PO (09:46)
[2018-01-24] MEDS: CLOPIDOGREL 75 MG TAB PO (09:46)
[2018-01-24] MEDS: CHOLECALCIFEROL 1,000 UNIT TAB PO (09:47)
[2018-01-24] MEDS: BENAZEPRIL 10 MG TAB PO ×2 (09:47→21:00)
[2018-01-24] MEDS: metFORMIN 500 MG TAB PO ×3 (09:48→18:03)
[2018-01-24] MEDS: POLYETHYLENE GLYCOL 17 GM PACKET GTB (09:48)
[2018-01-24] MEDS: POTASSIUM CHLORIDE 20 MEQ POWDER FOR ORAL SOLN PO (09:48)
[2018-01-24] MEDS: METHYLPREDNISOLONE 40 MG INJ IV ×2 (09:49→10:00)
[2018-01-24] MEDS: LINAGLIPTIN 5 MG TABLET PO (09:49)
[2018-01-24] MEDS: MULTIVITAMINS/MINERALS TAB PO (09:50)
[2018-01-24] MEDS: INSULIN DETEMIR [LEVEMIR] (100 UNITS/ML) SYG SC ×2 (10:02→20:47)
[2018-01-24] MEDS: DIGOXIN 0.125 MG TAB PO (14:02)
[2018-01-24 14:56] LABS: ADD MAN DIFF? NO
[2018-01-24 14:58] LABS: WHITE BLOOD COUNT 13.5 10^3/ul (4.8-10.8)
[2018-01-24 14:58] LABS: BASOPHILS % 0.3 % (0.0-2.0); EOSINOPHILS # 0.2 10^3/ul (0.0-0.5); EOSINOPHILS % 1.5 % (0.0-7.0); HEMOGLOBIN 14.3 g/dl (14.0-18.0); LYMPHOCYTES % 22.3 % (15.0-51.0); MEAN CORPUSCULAR HEMOGLOBIN 26.4 pg (29.0-33.0); MEAN CORPUSCULAR HGB CONC 31.8 g/dl (32.0-37.0); MEAN PLATELET VOLUME 10.2 fl (7.4-10.4); MONOCYTE # 0.9 10^3/ul (0.3-0.9); MONOCYTES % 6.7 % (0.0-11.0); NEUTROPHIL # 9.2 10^3/ul (1.6-7.5); PLATELET COUNT 330 10^3/UL (140-415); RED BLOOD COUNT 5.42 10^6/ul (4.70-6.10); RED CELL DISTRIBUTION WIDTH 14.8 % (11.5-14.5)
[2018-01-24 15:16] LABS: ANION GAP 15 (8-16); BLOOD UREA NITROGEN 22 mg/dl (7-20); CALCIUM 9.8 mg/dl (8.4-10.2); CARBON DIOXIDE 31 mmol/L (21-31); CHLORIDE 98 mmol/L (97-110); GLUCOSE 149 mg/dl (70-220); POTASSIUM 4.1 mmol/L (3.5-5.1); SODIUM 140 mmol/L (135-144)
[2018-01-24] MEDS: predniSONE 20 MG TAB PO (15:30)
[2018-01-24] MEDS: ATORVASTATIN 10 MG TAB PO (20:47)
[2018-01-24] MEDS: QUETIAPINE 25 MG TAB PO (20:49)
[2018-01-24] MEDS: DOCUSATE SODIUM 100 MG CAP PO (20:49)
[2018-01-24] MEDS: MIRTAZAPINE 15 MG TAB PO (20:53)
[2018-01-25] MEDS: ALBUTEROL/IPRATROPIUM (NEB) 3 ML AMP HHN ×6 (01:00→20:48)
[2018-01-25] MEDS: ACCU-CHEK XX (02:00)
[2018-01-25 07:31] LABS: ADD MAN DIFF? NO
[2018-01-25 07:34] LABS: WHITE BLOOD COUNT 12.9 10^3/ul (4.8-10.8)
[2018-01-25 07:34] LABS: BASOPHILS % 0.2 % (0.0-2.0); EOSINOPHILS # 0.2 10^3/ul (0.0-0.5); EOSINOPHILS % 1.4 % (0.0-7.0); HEMATOCRIT 44.4 % (42.0-52.0); HEMOGLOBIN 14.4 g/dl (14.0-18.0); LYMPHOCYTES # 4.3 10^3/ul (0.8-2.9); LYMPHOCYTES % 33.7 % (15.0-51.0); MEAN CORPUSCULAR HEMOGLOBIN 26.1 pg (29.0-33.0); MEAN CORPUSCULAR HGB CONC 32.4 g/dl (32.0-37.0); MEAN CORPUSCULAR VOLUME 80.4 fl (82.0-101.0); MEAN PLATELET VOLUME 10.3 fl (7.4-10.4); MONOCYTES % 7.6 % (0.0-11.0); NEUTROPHIL # 7.2 10^3/ul (1.6-7.5); NEUTROPHILS % 55.5 % (39.0-77.0); PLATELET COUNT 303 10^3/UL (140-415); RED BLOOD COUNT 5.52 10^6/ul (4.70-6.10); RED CELL DISTRIBUTION WIDTH 14.9 % (11.5-14.5)
[2018-01-25 07:55] LABS: ANION GAP 14 (8-16); BLOOD UREA NITROGEN 24 mg/dl (7-20); CALCIUM 9.1 mg/dl (8.4-10.2); CARBON DIOXIDE 29 mmol/L (21-31); CHLORIDE 102 mmol/L (97-110); CREATININE 0.65 mg/dl (0.61-1.24); GLUCOSE 61 mg/dl (70-220); POTASSIUM 3.6 mmol/L (3.5-5.1); SODIUM 141 mmol/L (135-144)
[2018-01-25] MEDS: metFORMIN 500 MG TAB PO ×2 (08:00→17:20)
[2018-01-25] MEDS: INSULIN ASPART [NOVOLOG] 3 ML PEN SC ×5 (08:00→20:36)
[2018-01-25] MEDS: INSULIN DETEMIR [LEVEMIR] (100 UNITS/ML) SYG SC ×2 (09:00→20:41)
[2018-01-25] MEDS: BENAZEPRIL 10 MG TAB PO ×2 (09:00→20:34)
[2018-01-25] MEDS: LINAGLIPTIN 5 MG TABLET PO (09:00)
[2018-01-25] MEDS: METOPROLOL (XL) 50 MG TAB PO ×2 (09:00→20:34)
[2018-01-25] MEDS: ENOXAPARIN 60 MG/0.6 ML SYG SC ×2 (09:00→20:38)
[2018-01-25] MEDS: POLYETHYLENE GLYCOL 17 GM PACKET GTB (09:00)
[2018-01-25] MEDS: predniSONE 20 MG TAB PO (09:46)
[2018-01-25] MEDS: FUROSEMIDE 20 MG TAB PO (09:46)
[2018-01-25] MEDS: CLOPIDOGREL 75 MG TAB PO (09:46)
[2018-01-25] MEDS: ARTIFICIAL TEARS 15 ML OPH BOTH EYES ×2 (09:46→20:31)
[2018-01-25] MEDS: POTASSIUM CHLORIDE 20 MEQ POWDER FOR ORAL SOLN PO (09:46)
[2018-01-25] MEDS: CHOLECALCIFEROL 1,000 UNIT TAB PO (09:46)
[2018-01-25] MEDS: MULTIVITAMINS/MINERALS TAB PO (09:47)
[2018-01-25] MEDS: ASCORBIC ACID 500 MG TAB PO (09:47)
[2018-01-25] MEDS: DIGOXIN 0.125 MG TAB PO (13:22)
[2018-01-25] MEDS: clonAZEPAM 0.5 MG TAB PO (20:08)
[2018-01-25] MEDS: QUETIAPINE 25 MG TAB PO (20:33)
[2018-01-25] MEDS: DOCUSATE SODIUM 100 MG CAP PO (20:33)
[2018-01-25] MEDS: ATORVASTATIN 10 MG TAB PO (20:33)
[2018-01-25] MEDS: MIRTAZAPINE 15 MG TAB PO (20:33)
[2018-01-25] MEDS ORDERED: LORAZEPAM 2 MG INJ IV (21:00)
[2018-01-25] MEDS: LORAZEPAM 1 MG TAB PO (21:35)
[2018-01-26] MEDS: HALOPERIDOL 5 MG INJ IM (00:19)
[2018-01-26] MEDS: ALBUTEROL/IPRATROPIUM (NEB) 3 ML AMP HHN ×3 (01:00→20:53)
[2018-01-26] MEDS ORDERED: LORAZEPAM 2 MG INJ ZFS (01:00)
[2018-01-26] MEDS: ACCU-CHEK XX (02:00)
[2018-01-26] MEDS: metFORMIN 500 MG TAB PO ×2 (08:00→18:16)
[2018-01-26] MEDS: INSULIN DETEMIR [LEVEMIR] (100 UNITS/ML) SYG SC ×2 (09:00→20:19)
[2018-01-26] MEDS: LINAGLIPTIN 5 MG TABLET PO (09:00)
[2018-01-26] MEDS: INSULIN ASPART [NOVOLOG] 3 ML PEN SC ×4 (09:11→20:23)
[2018-01-26] MEDS: ARTIFICIAL TEARS 15 ML OPH BOTH EYES ×2 (09:22→20:16)
[2018-01-26] MEDS: POLYETHYLENE GLYCOL 17 GM PACKET GTB (09:22)
[2018-01-26] MEDS: METOPROLOL (XL) 50 MG TAB PO ×2 (09:23→20:15)
[2018-01-26] MEDS: CLOPIDOGREL 75 MG TAB PO (09:23)
[2018-01-26] MEDS: ASCORBIC ACID 500 MG TAB PO (09:24)
[2018-01-26] MEDS: FUROSEMIDE 20 MG TAB PO (09:24)
[2018-01-26] MEDS: MULTIVITAMINS/MINERALS TAB PO (09:24)
[2018-01-26] MEDS: BENAZEPRIL 10 MG TAB PO ×2 (09:25→20:16)
[2018-01-26] MEDS: CHOLECALCIFEROL 1,000 UNIT TAB PO (09:25)
[2018-01-26] MEDS: predniSONE 20 MG TAB PO (09:25)
[2018-01-26] MEDS: POTASSIUM CHLORIDE 20 MEQ POWDER FOR ORAL SOLN PO (09:26)
[2018-01-26] MEDS: ENOXAPARIN 60 MG/0.6 ML SYG SC ×2 (09:41→20:18)
[2018-01-26 11:34] LABS: ADD MAN DIFF? NO
[2018-01-26 11:36] LABS: WHITE BLOOD COUNT 13.5 10^3/ul (4.8-10.8)
[2018-01-26 11:36] LABS: BASOPHILS % 0.3 % (0.0-2.0); EOSINOPHILS # 0.2 10^3/ul (0.0-0.5); EOSINOPHILS % 1.3 % (0.0-7.0); HEMATOCRIT 46.5 % (42.0-52.0); HEMOGLOBIN 14.9 g/dl (14.0-18.0); LYMPHOCYTES # 4.1 10^3/ul (0.8-2.9); LYMPHOCYTES % 30.3 % (15.0-51.0); MEAN CORPUSCULAR VOLUME 81.2 fl (82.0-101.0); MEAN PLATELET VOLUME 10.8 fl (7.4-10.4); MONOCYTE # 0.9 10^3/ul (0.3-0.9); MONOCYTES % 6.8 % (0.0-11.0); NEUTROPHIL # 8.1 10^3/ul (1.6-7.5); NEUTROPHILS % 60.3 % (39.0-77.0); PLATELET COUNT 317 10^3/UL (140-415); RED BLOOD COUNT 5.73 10^6/ul (4.70-6.10); RED CELL DISTRIBUTION WIDTH 14.8 % (11.5-14.5)
[2018-01-26 11:54] LABS: ANION GAP 14 (8-16); BLOOD UREA NITROGEN 22 mg/dl (7-20); CALCIUM 9.8 mg/dl (8.4-10.2); CARBON DIOXIDE 26 mmol/L (21-31); CHLORIDE 104 mmol/L (97-110); CREATININE 0.63 mg/dl (0.61-1.24); GLUCOSE 82 mg/dl (70-220); POTASSIUM 4.4 mmol/L (3.5-5.1); SODIUM 140 mmol/L (135-144)
[2018-01-26] MEDS: DIGOXIN 0.125 MG TAB PO (13:54)
[2018-01-26] MEDS: QUETIAPINE 25 MG TAB PO (20:14)
[2018-01-26] MEDS: ATORVASTATIN 10 MG TAB PO (20:14)
[2018-01-26] MEDS: DOCUSATE SODIUM 100 MG CAP PO (20:14)
[2018-01-26] MEDS: MIRTAZAPINE 15 MG TAB PO (20:16)
[2018-01-27] MEDS: ALBUTEROL/IPRATROPIUM (NEB) 3 ML AMP HHN ×5 (01:00→16:43)
[2018-01-27] MEDS: ACCU-CHEK XX (02:33)
[2018-01-27] MEDS: metFORMIN 500 MG TAB PO ×2 (08:50→17:20)
[2018-01-27] MEDS: CHOLECALCIFEROL 1,000 UNIT TAB PO (08:50)
[2018-01-27] MEDS: ARTIFICIAL TEARS 15 ML OPH BOTH EYES (08:50)
[2018-01-27] MEDS: ASCORBIC ACID 500 MG TAB PO (08:50)
[2018-01-27] MEDS: POTASSIUM CHLORIDE 20 MEQ POWDER FOR ORAL SOLN PO (08:50)
[2018-01-27] MEDS: FUROSEMIDE 20 MG TAB PO (08:51)
[2018-01-27] MEDS: LINAGLIPTIN 5 MG TABLET PO (08:51)
[2018-01-27] MEDS: CLOPIDOGREL 75 MG TAB PO (08:51)
[2018-01-27] MEDS: MULTIVITAMINS/MINERALS TAB PO (08:51)
[2018-01-27] MEDS: BENAZEPRIL 10 MG TAB PO (08:52)
[2018-01-27] MEDS: METOPROLOL (XL) 50 MG TAB PO (08:52)
[2018-01-27] MEDS: ENOXAPARIN 60 MG/0.6 ML SYG SC (08:54)
[2018-01-27] MEDS: INSULIN DETEMIR [LEVEMIR] (100 UNITS/ML) SYG SC (08:55)
[2018-01-27] MEDS: INSULIN ASPART [NOVOLOG] 3 ML PEN SC ×3 (08:56→17:24)
[2018-01-27] MEDS: POLYETHYLENE GLYCOL 17 GM PACKET GTB (08:57)
[2018-01-27] MEDS: DIGOXIN 0.125 MG TAB PO (13:47)
[2018-01-27] MEDS ORDERED: QUETIAPINE 25 MG TAB PO (21:00)
[2018-01-27] MEDS ORDERED: APIXABAN 5 MG TABLET PO (21:00)
== END 2018-01-27 18:25 | DRG 871 ==
LOC: E/R 22:13 → PP2 01-15 01:00 → 5EC 01-15 22:40
PROVIDERS: Internal Medicine
PROC: 0DH68UZ Insertion of Feeding Device into Stomach, Via Natural or Artificial Opening Endoscopic (ICD-10-PCS; principal; 2018-01-20 12:40)
DX: A41.9 Sepsis, unspecified organism (principal); J18.9 Pneumonia, unspecified organism; J96.01 Acute respiratory failure with hypoxia; G93.40 Encephalopathy, unspecified; I50.23 Acute on chronic systolic (congestive) heart failure; Z43.1 Encounter for attention to gastrostomy; L03.116 Cellulitis of left lower limb; D64.9 Anemia, unspecified; E11.9 Type 2 diabetes mellitus without complications; E78.00 Pure hypercholesterolemia, unspecified; F03.90 Unspecified dementia, unspecified severity, without behavioral disturbance, psychotic disturbance, mood disturbance, and anxiety; F20.9 Schizophrenia, unspecified; I11.0 Hypertensive heart disease with heart failure; I48.91 Unspecified atrial fibrillation; I25.10 Atherosclerotic heart disease of native coronary artery without angina pectoris; J40 Bronchitis, not specified as acute or chronic; L89.629 Pressure ulcer of left heel, unspecified stage; L89.619 Pressure ulcer of right heel, unspecified stage; R13.10 Dysphagia, unspecified; Y95 Nosocomial condition; Z95.1 Presence of aortocoronary bypass graft; Z99.3 Dependence on wheelchair; Z86.73 Personal history of transient ischemic attack (TIA), and cerebral infarction without residual deficits; Z89.421 Acquired absence of other right toe(s); Z88.0 Allergy status to penicillin; Z79.4 Long term (current) use of insulin; Z79.02 Long term (current) use of antithrombotics/antiplatelets
CPT/HCPCS: 36415; 71045; 80048; 80053; 80061; 80162; 80202; 81003; 82550; 82553; 82962; 83605; 83880; 84443; 84484; 85025; 85610; 85730; 87040; 87081; 87086; 92526; 92610; 93005; 93306; 93970; 94640; 99285-25

== ENCOUNTER 2018-01-28 21:18 | Inpatient (IN) | payer MEDICARE, BC ==
[2018-01-28 22:19] LABS: ADD MAN DIFF? NO
[2018-01-28 22:28] LABS: BASOPHILS % 0.3 % (0.0-2.0); EOSINOPHILS # 0.1 10^3/ul (0.0-0.5); EOSINOPHILS % 0.8 % (0.0-7.0); HEMATOCRIT 41.8 % (42.0-52.0); HEMOGLOBIN 13.3 g/dl (14.0-18.0); LYMPHOCYTES # 2.2 10^3/ul (0.8-2.9); LYMPHOCYTES % 18.7 % (15.0-51.0); MEAN CORPUSCULAR HEMOGLOBIN 26.2 pg (29.0-33.0); MEAN CORPUSCULAR HGB CONC 31.8 g/dl (32.0-37.0); MEAN CORPUSCULAR VOLUME 82.3 fl (82.0-101.0); MEAN PLATELET VOLUME 10.5 fl (7.4-10.4); MONOCYTE # 0.8 10^3/ul (0.3-0.9); MONOCYTES % 6.4 % (0.0-11.0); NEUTROPHIL # 8.7 10^3/ul (1.6-7.5); NEUTROPHILS % 72.9 % (39.0-77.0); PLATELET COUNT 308 10^3/UL (140-415); RED BLOOD COUNT 5.08 10^6/ul (4.70-6.10); RED CELL DISTRIBUTION WIDTH 14.8 % (11.5-14.5)
[2018-01-28] MEDS: SOD CHLORIDE 0.9% 1,000 ML IV (22:39)
[2018-01-28 22:58] LABS: LACTIC ACID 2.7 mmol/L (0.5-2.0)
[2018-01-28 22:59] LABS: ALANINE AMINOTRANSFERASE 32 IU/L (13-69); ALBUMIN 3.5 g/dl (3.3-4.9); ALBUMIN/GLOBULIN RATIO 1.09; ALKALINE PHOSPHATASE 81 IU/L (42-121); ANION GAP 12 (8-16); ASPARTATE AMINO TRANSFERASE 24 IU/L (15-46); BILIRUBIN,INDIRECT 0.2 mg/dl (0-1.1); BILIRUBIN,TOTAL 0.2 mg/dl (0.2-1.3); BLOOD UREA NITROGEN 25 mg/dl (7-20); CALCIUM 9.5 mg/dl (8.4-10.2); CARBON DIOXIDE 25 mmol/L (21-31); CHLORIDE 103 mmol/L (97-110); CREATININE 0.76 mg/dl (0.61-1.24); GLUCOSE 143 mg/dl (70-220); POTASSIUM 4.8 mmol/L (3.5-5.1); SODIUM 135 mmol/L (135-144); TOTAL PROTEIN 6.7 g/dl (6.1-8.1)
[2018-01-28 23:09] LABS: TROPONIN-I < 0.012 ng/ml (0.000-0.120)
[2018-01-28 23:16] LABS: ACETAMINOPHEN < 10.0 ug/ml (10.0-30.0); ETHANOL < 10.0 mg/dl; SALICYLATE < 1.0 mg/dl (5.0-30.0)
[2018-01-28] MEDS: LEVOFLOXACIN 750MG/D5W (PMX) 150 ML IVPB (23:47)
[2018-01-28] MEDS: SODIUM CHLORIDE 0.9% 1L BAG IV* (23:51)
[2018-01-29] MEDS: VANCOMYCIN 1 GM (PMX) 250 ML IVPB (01:31)
[2018-01-29 02:55] LABS: LACTIC ACID 2.6 mmol/L (0.5-2.0)
[2018-01-29] MEDS: DEXTROSE 5%-0.45% NACL 1,000 ML IV (03:30)
[2018-01-29] MEDS: LEVOFLOXACIN 750MG/D5W (PMX) 150 ML IVPB ×2 (04:00→04:25)
[2018-01-29] MEDS ORDERED: PANTOPRAZOLE (EC) 40 MG TAB PO (06:00)
[2018-01-29] MEDS: LANSOPRAZOLE 30 MG CAP GTB (06:09)
[2018-01-29 06:15] LABS: ADD MAN DIFF? NO
[2018-01-29 06:17] LABS: WHITE BLOOD COUNT 10.4 10^3/ul (4.8-10.8)
[2018-01-29 06:17] LABS: BASOPHILS % 0.3 % (0.0-2.0); EOSINOPHILS # 0.1 10^3/ul (0.0-0.5); EOSINOPHILS % 1.3 % (0.0-7.0); HEMATOCRIT 40.3 % (42.0-52.0); HEMOGLOBIN 12.9 g/dl (14.0-18.0); LYMPHOCYTES # 3.4 10^3/ul (0.8-2.9); LYMPHOCYTES % 32.3 % (15.0-51.0); MEAN CORPUSCULAR HEMOGLOBIN 26.8 pg (29.0-33.0); MEAN CORPUSCULAR VOLUME 83.6 fl (82.0-101.0); MEAN PLATELET VOLUME 10.7 fl (7.4-10.4); MONOCYTE # 0.7 10^3/ul (0.3-0.9); MONOCYTES % 6.9 % (0.0-11.0); NEUTROPHIL # 6.1 10^3/ul (1.6-7.5); NEUTROPHILS % 58.4 % (39.0-77.0); PLATELET COUNT 279 10^3/UL (140-415); RED BLOOD COUNT 4.82 10^6/ul (4.70-6.10); RED CELL DISTRIBUTION WIDTH 15.1 % (11.5-14.5)
[2018-01-29 06:32] LABS: LACTIC ACID 1.9 mmol/L (0.5-2.0)
[2018-01-29] MEDS ORDERED: PENDING SANTYL ORDER FOR WOUND CARE XX (08:00)
[2018-01-29] MEDS: FUROSEMIDE 20 MG TAB GTB (09:00)
[2018-01-29] MEDS: METOPROLOL 25 MG TAB GTB ×2 (09:00→20:59)
[2018-01-29] MEDS: BENAZEPRIL 5 MG TAB GTB (09:00)
[2018-01-29] MEDS: DIGOXIN 0.125 MG TAB GTB (13:00)
[2018-01-29] MEDS ORDERED: GLUCOSE GEL 15 GRAM TUBE BUCCAL (13:30)
[2018-01-29] MEDS ORDERED: DEXTROSE 50% 50 ML SYRINGE IV ×2 (13:30)
[2018-01-29] MEDS ORDERED: GLUCAGON 1 MG INJ IM (13:30)
[2018-01-29] MEDS ORDERED: GLUCOSE GEL 15 GRAM TUBE PO ×2 (13:30)
[2018-01-29] MEDS: INSULIN ASPART [NOVOLOG] 3 ML PEN SC ×2 (19:08→21:08)
[2018-01-29] MEDS: QUETIAPINE 25 MG TAB PO (20:59)
[2018-01-29] MEDS ORDERED: APIXABAN 5 MG TABLET PO (21:00)
[2018-01-30] MEDS: LEVOFLOXACIN 750MG/D5W (PMX) 150 ML IVPB ×2 (00:57→23:53)
[2018-01-30] MEDS: LORAZEPAM 2 MG INJ IV ×3 (01:27→23:51)
[2018-01-30] MEDS: ACCU-CHEK XX (01:31)
[2018-01-30] MEDS ORDERED: ACCU-CHEK XX (02:00)
[2018-01-30 03:53] LABS: ADD UMIC NO; UR ASCORBIC ACID NEGATIVE (NEGATIVE); UR BILIRUBIN (Dip) NEGATIVE (NEGATIVE); UR BLOOD (Dip) NEGATIVE (NEGATIVE); UR CLARITY CLEAR (CLEAR); UR COLOR STRAW (YELLOW); UR GLUCOSE (Dip) 3+ mg/dL (NEGATIVE); UR KETONES (Dip) NEGATIVE (NEGATIVE); UR LEUKOCYTE ESTERASE (Dip) NEGATIVE Leu/ul (NEGATIVE); UR NITRITE (Dip) NEGATIVE (NEGATIVE); UR SPECIFIC GRAVITY (Dip) 1.002 (1.003-1.030); UR TOTAL PROTEIN (Dip) NEGATIVE (NEGATIVE); UR UROBILINOGEN (Dip) NEGATIVE (NEGATIVE)
[2018-01-30 04:17] LABS: AMPHETAMINE/METHAMPHETAMINE Negative (NEGATIVE); BARBITURATES Negative (NEGATIVE); BENZODIAZEPINES Negative (NEGATIVE); CANNABINOIDS Negative (NEGATIVE); COCAINE Negative (NEGATIVE); OPIATES Negative (NEGATIVE)
[2018-01-30 05:34] LABS: ADD MAN DIFF? NO
[2018-01-30 05:46] LABS: BASOPHIL # 0.1 10^3/ul (0.0-0.1); BASOPHILS % 0.6 % (0.0-2.0); EOSINOPHILS # 0.2 10^3/ul (0.0-0.5); EOSINOPHILS % 1.5 % (0.0-7.0); HEMATOCRIT 42.4 % (42.0-52.0); HEMOGLOBIN 13.5 g/dl (14.0-18.0); LYMPHOCYTES % 27.1 % (15.0-51.0); MEAN CORPUSCULAR HEMOGLOBIN 26.4 pg (29.0-33.0); MEAN CORPUSCULAR HGB CONC 31.8 g/dl (32.0-37.0); MEAN PLATELET VOLUME 10.6 fl (7.4-10.4); MONOCYTE # 0.8 10^3/ul (0.3-0.9); MONOCYTES % 7.2 % (0.0-11.0); NEUTROPHIL # 6.9 10^3/ul (1.6-7.5); NEUTROPHILS % 62.9 % (39.0-77.0); PLATELET COUNT 258 10^3/UL (140-415); RED BLOOD COUNT 5.11 10^6/ul (4.70-6.10); RED CELL DISTRIBUTION WIDTH 15.4 % (11.5-14.5)
[2018-01-30 05:46] LABS: WHITE BLOOD COUNT 11.1 10^3/ul (4.8-10.8)
[2018-01-30 06:12] LABS: ANION GAP 12 (8-16); BLOOD UREA NITROGEN 14 mg/dl (7-20); CALCIUM 8.7 mg/dl (8.4-10.2); CARBON DIOXIDE 25 mmol/L (21-31); CHLORIDE 106 mmol/L (97-110); CREATININE 0.57 mg/dl (0.61-1.24); GLUCOSE 189 mg/dl (70-220); POTASSIUM 4.3 mmol/L (3.5-5.1); SODIUM 139 mmol/L (135-144)
[2018-01-30] MEDS: LANSOPRAZOLE 30 MG CAP GTB (06:15)
[2018-01-30] MEDS: INSULIN ASPART [NOVOLOG] 3 ML PEN SC ×4 (08:49→21:07)
[2018-01-30] MEDS: CLOPIDOGREL 75 MG TAB GTB (09:16)
[2018-01-30] MEDS: FUROSEMIDE 20 MG TAB GTB (09:16)
[2018-01-30] MEDS: BENAZEPRIL 5 MG TAB GTB (09:16)
[2018-01-30] MEDS: METOPROLOL 25 MG TAB GTB ×2 (09:17→20:59)
[2018-01-30] MEDS: DIGOXIN 0.125 MG TAB GTB (13:28)
[2018-01-30] MEDS: metFORMIN 500 MG TAB GTB (17:31)
[2018-01-30] MEDS: COLLAGENASE 5 GM (UD JAR) TOP (18:15)
[2018-01-30] MEDS: QUETIAPINE 25 MG TAB PO (20:59)
[2018-01-30] MEDS: INSULIN DETEMIR [LEVEMIR] (100 UNITS/ML) SYG SC (21:07)
[2018-01-31] MEDS: ACCU-CHEK XX (01:58)
[2018-01-31] MEDS: LANSOPRAZOLE 30 MG CAP GTB (06:19)
[2018-01-31] MEDS: INSULIN ASPART [NOVOLOG] 3 ML PEN SC ×4 (07:58→20:21)
[2018-01-31] MEDS: COLLAGENASE 5 GM (UD JAR) TOP (08:06)
[2018-01-31] MEDS: FUROSEMIDE 20 MG TAB GTB (08:07)
[2018-01-31] MEDS: metFORMIN 500 MG TAB GTB ×2 (08:07→17:17)
[2018-01-31] MEDS: METOPROLOL 25 MG TAB GTB ×2 (08:07→20:16)
[2018-01-31] MEDS: BENAZEPRIL 5 MG TAB GTB (08:07)
[2018-01-31] MEDS: INSULIN DETEMIR [LEVEMIR] (100 UNITS/ML) SYG SC ×2 (08:09→20:19)
[2018-01-31] MEDS: CLOPIDOGREL 75 MG TAB GTB (08:15)
[2018-01-31] MEDS: DIGOXIN 0.125 MG TAB GTB (13:29)
[2018-01-31] MEDS: LORAZEPAM 2 MG INJ IV ×2 (18:00→22:27)
[2018-01-31] MEDS: QUETIAPINE 25 MG TAB PO (20:26)
[2018-01-31] MEDS: LEVOFLOXACIN 750MG/D5W (PMX) 150 ML IVPB (23:54)
[2018-02-01] MEDS: ACCU-CHEK XX (02:00)
[2018-02-01] MEDS: LANSOPRAZOLE 30 MG CAP GTB (06:03)
[2018-02-01] MEDS: INSULIN ASPART [NOVOLOG] 3 ML PEN SC ×4 (08:00→20:24)
[2018-02-01] MEDS: INSULIN DETEMIR [LEVEMIR] (100 UNITS/ML) SYG SC ×2 (08:00→20:24)
[2018-02-01] MEDS: BENAZEPRIL 5 MG TAB GTB (08:19)
[2018-02-01] MEDS: metFORMIN 500 MG TAB GTB ×2 (08:19→17:00)
[2018-02-01] MEDS: COLLAGENASE 5 GM (UD JAR) TOP (08:20)
[2018-02-01] MEDS: FUROSEMIDE 20 MG TAB GTB (08:20)
[2018-02-01] MEDS: METOPROLOL 25 MG TAB GTB ×2 (08:20→20:12)
[2018-02-01] MEDS: CLOPIDOGREL 75 MG TAB GTB (08:20)
[2018-02-01] MEDS: DIGOXIN 0.125 MG TAB GTB (11:43)
[2018-02-01] MEDS: LORAZEPAM 2 MG INJ IV (12:52)
[2018-02-01 14:10] LABS: ADD MAN DIFF? NO; BASOPHILS % 0.1 % (0.0-2.0); EOSINOPHILS % 0.1 % (0.0-7.0); HEMATOCRIT 46.3 % (42.0-52.0); HEMOGLOBIN 14.9 g/dl (14.0-18.0); LYMPHOCYTES # 1.1 10^3/ul (0.8-2.9); MEAN CORPUSCULAR HEMOGLOBIN 26.6 pg (29.0-33.0); MEAN CORPUSCULAR HGB CONC 32.2 g/dl (32.0-37.0); MEAN CORPUSCULAR VOLUME 82.5 fl (82.0-101.0); MEAN PLATELET VOLUME 10.9 fl (7.4-10.4); MONOCYTE # 0.1 10^3/ul (0.3-0.9); MONOCYTES % 0.4 % (0.0-11.0); NEUTROPHIL # 14.8 10^3/ul (1.6-7.5); NEUTROPHILS % 91.8 % (39.0-77.0); PLATELET COUNT 333 10^3/UL (140-415); RED BLOOD COUNT 5.61 10^6/ul (4.70-6.10); RED CELL DISTRIBUTION WIDTH 14.7 % (11.5-14.5)
[2018-02-01 14:10] LABS: WHITE BLOOD COUNT 16.2 10^3/ul (4.8-10.8)
[2018-02-01 14:27] LABS: ANION GAP 19 (8-16); BLOOD UREA NITROGEN 20 mg/dl (7-20); CALCIUM 9.4 mg/dl (8.4-10.2); CARBON DIOXIDE 26 mmol/L (21-31); CHLORIDE 101 mmol/L (97-110); CREATININE 0.78 mg/dl (0.61-1.24); GLUCOSE 231 mg/dl (70-220); POTASSIUM 4.7 mmol/L (3.5-5.1); SODIUM 141 mmol/L (135-144)
[2018-02-01] MEDS: LEVOFLOXACIN 500 MG TAB PO (18:31)
[2018-02-01] MEDS: QUETIAPINE 25 MG TAB PO (20:12)
[2018-02-01] MEDS: APIXABAN 5 MG TABLET PO (20:12)
[2018-02-01] MEDS: LORAZEPAM 2 MG INJ IM (22:24)
[2018-02-02] MEDS: ACCU-CHEK XX (02:00)
[2018-02-02] MEDS: LEVOFLOXACIN 500 MG TAB PO (05:37)
[2018-02-02] MEDS: LANSOPRAZOLE 30 MG CAP GTB (05:37)
[2018-02-02 05:45] LABS: ADD MAN DIFF? NO
[2018-02-02 05:52] LABS: HEMATOCRIT 42.2 % (42.0-52.0); HEMOGLOBIN 13.8 g/dl (14.0-18.0); MEAN CORPUSCULAR HEMOGLOBIN 26.3 pg (29.0-33.0); MEAN CORPUSCULAR HGB CONC 32.7 g/dl (32.0-37.0); MEAN CORPUSCULAR VOLUME 80.5 fl (82.0-101.0); MEAN PLATELET VOLUME 11.3 fl (7.4-10.4); PLATELET COUNT 351 10^3/UL (140-415); RED BLOOD COUNT 5.24 10^6/ul (4.70-6.10); RED CELL DISTRIBUTION WIDTH 14.9 % (11.5-14.5)
[2018-02-02 05:52] LABS: WHITE BLOOD COUNT 16.7 10^3/ul (4.8-10.8)
[2018-02-02 05:53] LABS: BASOPHILS % 0.1 % (0.0-2.0); EOSINOPHILS % 0.2 % (0.0-7.0); LYMPHOCYTES % 18.2 % (15.0-51.0); MONOCYTE # 0.9 10^3/ul (0.3-0.9); MONOCYTES % 5.1 % (0.0-11.0); NEUTROPHIL # 12.7 10^3/ul (1.6-7.5); NEUTROPHILS % 75.9 % (39.0-77.0)
[2018-02-02 06:12] LABS: ALANINE AMINOTRANSFERASE 36 IU/L (13-69); ALBUMIN 3.9 g/dl (3.3-4.9); ALBUMIN/GLOBULIN RATIO 1.18; ALKALINE PHOSPHATASE 98 IU/L (42-121); ANION GAP 18 (8-16); ASPARTATE AMINO TRANSFERASE 26 IU/L (15-46); BILIRUBIN,INDIRECT 0.3 mg/dl (0-1.1); BILIRUBIN,TOTAL 0.3 mg/dl (0.2-1.3); BLOOD UREA NITROGEN 26 mg/dl (7-20); CALCIUM 9.6 mg/dl (8.4-10.2); CARBON DIOXIDE 28 mmol/L (21-31); CHLORIDE 98 mmol/L (97-110); CREATININE 0.74 mg/dl (0.61-1.24); GLUCOSE 246 mg/dl (70-220); POTASSIUM 4.4 mmol/L (3.5-5.1); SODIUM 140 mmol/L (135-144); TOTAL PROTEIN 7.2 g/dl (6.1-8.1)
[2018-02-02 06:42] LABS: LACTIC ACID 4.6 mmol/L (0.5-2.0)
[2018-02-02] MEDS ORDERED: VANCOMYCIN IV PER PHARMACY XX (07:30)
[2018-02-02 07:34] LABS: ADD UMIC NO; UR ASCORBIC ACID 40 mg/dL (NEGATIVE); UR BILIRUBIN (Dip) NEGATIVE (NEGATIVE); UR BLOOD (Dip) NEGATIVE (NEGATIVE); UR CLARITY CLEAR (CLEAR); UR COLOR YELLOW (YELLOW); UR GLUCOSE (Dip) 3+ mg/dL (NEGATIVE); UR KETONES (Dip) TRACE mg/dL (NEGATIVE); UR LEUKOCYTE ESTERASE (Dip) NEGATIVE Leu/ul (NEGATIVE); UR NITRITE (Dip) NEGATIVE (NEGATIVE); UR SPECIFIC GRAVITY (Dip) 1.015 (1.003-1.030); UR TOTAL PROTEIN (Dip) NEGATIVE (NEGATIVE); UR UROBILINOGEN (Dip) NEGATIVE (NEGATIVE)
[2018-02-02] MEDS: CLOPIDOGREL 75 MG TAB GTB (08:11)
[2018-02-02] MEDS: APIXABAN 5 MG TABLET PO ×2 (08:11→20:18)
[2018-02-02] MEDS: metFORMIN 500 MG TAB GTB ×3 (08:11→17:50)
[2018-02-02] MEDS: COLLAGENASE 5 GM (UD JAR) TOP (08:19)
[2018-02-02] MEDS: METOPROLOL 25 MG TAB GTB ×2 (08:20→20:35)
[2018-02-02] MEDS: NIFEdipine (XL) 30 MG TAB PO (08:21)
[2018-02-02] MEDS: FUROSEMIDE 20 MG TAB GTB (08:21)
[2018-02-02] MEDS: BENAZEPRIL 5 MG TAB GTB (08:21)
[2018-02-02] MEDS: INSULIN DETEMIR [LEVEMIR] (100 UNITS/ML) SYG SC ×2 (08:35→20:35)
[2018-02-02] MEDS: INSULIN ASPART [NOVOLOG] 3 ML PEN SC ×6 (08:35→20:20)
[2018-02-02] MEDS: CEFEPIME 2GM/50 ML (PMX) 50 ML IVPB ×2 (09:37→20:18)
[2018-02-02] MEDS: VANCOMYCIN 1.5 GM in SOD CHLORIDE 0.9% 250 ML IVPB (10:25)
[2018-02-02] MEDS: DIGOXIN 0.125 MG TAB GTB (12:52)
[2018-02-02 16:28] LABS: MONOTEST Negative (NEG)
[2018-02-02] MEDS: QUETIAPINE 25 MG TAB PO (20:18)
[2018-02-02] MEDS: VANCOMYCIN 750 MG in SOD CHLORIDE 0.9% 150 ML IVPB (21:18)
[2018-02-03] MEDS: ACCU-CHEK XX (02:00)
[2018-02-03] MEDS: LANSOPRAZOLE 30 MG CAP GTB (06:00)
[2018-02-03 06:07] LABS: ADD MAN DIFF? NO
[2018-02-03 06:10] LABS: BASOPHIL # 0.1 10^3/ul (0.0-0.1); BASOPHILS % 0.4 % (0.0-2.0); EOSINOPHILS # 0.1 10^3/ul (0.0-0.5); HEMATOCRIT 41.7 % (42.0-52.0); HEMOGLOBIN 13.5 g/dl (14.0-18.0); LYMPHOCYTES # 4.3 10^3/ul (0.8-2.9); LYMPHOCYTES % 34.7 % (15.0-51.0); MEAN CORPUSCULAR HEMOGLOBIN 26.1 pg (29.0-33.0); MEAN CORPUSCULAR HGB CONC 32.4 g/dl (32.0-37.0); MEAN CORPUSCULAR VOLUME 80.7 fl (82.0-101.0); MONOCYTE # 0.7 10^3/ul (0.3-0.9); NEUTROPHIL # 7.1 10^3/ul (1.6-7.5); NEUTROPHILS % 57.3 % (39.0-77.0); PLATELET COUNT 302 10^3/UL (140-415); RED BLOOD COUNT 5.17 10^6/ul (4.70-6.10); RED CELL DISTRIBUTION WIDTH 15.2 % (11.5-14.5)
[2018-02-03 06:10] LABS: WHITE BLOOD COUNT 12.3 10^3/ul (4.8-10.8)
[2018-02-03 06:35] LABS: ANION GAP 14 (8-16); BLOOD UREA NITROGEN 20 mg/dl (7-20); CALCIUM 9.2 mg/dl (8.4-10.2); CARBON DIOXIDE 28 mmol/L (21-31); CHLORIDE 107 mmol/L (97-110); CREATININE 0.62 mg/dl (0.61-1.24); GLUCOSE 99 mg/dl (70-220); POTASSIUM 3.9 mmol/L (3.5-5.1); SODIUM 145 mmol/L (135-144)
[2018-02-03] MEDS: INSULIN DETEMIR [LEVEMIR] (100 UNITS/ML) SYG SC ×2 (08:00→20:45)
[2018-02-03] MEDS: INSULIN ASPART [NOVOLOG] 3 ML PEN SC ×7 (08:00→21:35)
[2018-02-03] MEDS: COLLAGENASE 5 GM (UD JAR) TOP (09:00)
[2018-02-03] MEDS: CEFEPIME 2GM/50 ML (PMX) 50 ML IVPB ×2 (11:45→20:44)
[2018-02-03] MEDS: CLOPIDOGREL 75 MG TAB GTB (11:54)
[2018-02-03] MEDS: APIXABAN 5 MG TABLET PO ×2 (11:55→20:45)
[2018-02-03] MEDS: METOPROLOL 25 MG TAB GTB ×2 (11:56→20:43)
[2018-02-03] MEDS: BENAZEPRIL 5 MG TAB GTB (11:56)
[2018-02-03] MEDS: metFORMIN 500 MG TAB GTB ×2 (11:57→17:40)
[2018-02-03] MEDS: NIFEdipine (XL) 30 MG TAB PO (11:57)
[2018-02-03] MEDS: FUROSEMIDE 20 MG TAB GTB (11:57)
[2018-02-03] MEDS: VANCOMYCIN 750 MG in SOD CHLORIDE 0.9% 150 ML IVPB (13:08)
[2018-02-03] MEDS: DIGOXIN 0.125 MG TAB GTB (13:08)
[2018-02-03] MEDS: QUETIAPINE 25 MG TAB PO (20:45)
[2018-02-04] MEDS: clonAZEPAM 0.5 MG TAB PO ×2 (00:37→19:46)
[2018-02-04] MEDS ORDERED: VANCOMYCIN 750 MG in SOD CHLORIDE 0.9% 150 ML IVPB (01:00)
[2018-02-04] MEDS: ACCU-CHEK XX (02:00)
[2018-02-04] MEDS: LANSOPRAZOLE 30 MG CAP GTB (05:43)
[2018-02-04] MEDS: CEFEPIME 2GM/50 ML (PMX) 50 ML IVPB ×2 (09:39→20:09)
[2018-02-04] MEDS: COLLAGENASE 5 GM (UD JAR) TOP (09:39)
[2018-02-04] MEDS: METOPROLOL 25 MG TAB GTB ×2 (09:43→20:09)
[2018-02-04] MEDS: INSULIN DETEMIR [LEVEMIR] (100 UNITS/ML) SYG SC ×2 (09:44→20:41)
[2018-02-04] MEDS: INSULIN ASPART [NOVOLOG] 3 ML PEN SC ×7 (09:45→20:39)
[2018-02-04] MEDS: NIFEdipine (XL) 30 MG TAB PO (09:46)
[2018-02-04] MEDS: metFORMIN 500 MG TAB GTB ×2 (09:46→18:00)
[2018-02-04] MEDS: BENAZEPRIL 5 MG TAB GTB (09:47)
[2018-02-04] MEDS: FUROSEMIDE 20 MG TAB GTB (09:47)
[2018-02-04 10:11] LABS: ADD MAN DIFF? NO
[2018-02-04 10:14] LABS: BASOPHIL # 0.1 10^3/ul (0.0-0.1); BASOPHILS % 0.5 % (0.0-2.0); EOSINOPHILS # 0.3 10^3/ul (0.0-0.5); EOSINOPHILS % 2.4 % (0.0-7.0); HEMATOCRIT 41.6 % (42.0-52.0); HEMOGLOBIN 13.5 g/dl (14.0-18.0); LYMPHOCYTES # 3.7 10^3/ul (0.8-2.9); LYMPHOCYTES % 33.9 % (15.0-51.0); MEAN CORPUSCULAR HEMOGLOBIN 26.7 pg (29.0-33.0); MEAN CORPUSCULAR HGB CONC 32.5 g/dl (32.0-37.0); MEAN CORPUSCULAR VOLUME 82.2 fl (82.0-101.0); MEAN PLATELET VOLUME 10.9 fl (7.4-10.4); MONOCYTE # 0.8 10^3/ul (0.3-0.9); MONOCYTES % 7.3 % (0.0-11.0); NEUTROPHIL # 6.1 10^3/ul (1.6-7.5); NEUTROPHILS % 55.4 % (39.0-77.0); PLATELET COUNT 271 10^3/UL (140-415); RED BLOOD COUNT 5.06 10^6/ul (4.70-6.10); RED CELL DISTRIBUTION WIDTH 15.2 % (11.5-14.5)
[2018-02-04 10:35] LABS: LACTIC ACID 2.2 mmol/L (0.5-2.0)
[2018-02-04 10:48] LABS: ANION GAP 12 (8-16); BLOOD UREA NITROGEN 16 mg/dl (7-20); CALCIUM 9.2 mg/dl (8.4-10.2); CARBON DIOXIDE 30 mmol/L (21-31); CHLORIDE 103 mmol/L (97-110); CREATININE 0.62 mg/dl (0.61-1.24); GLUCOSE 184 mg/dl (70-220); POTASSIUM 4.6 mmol/L (3.5-5.1); SODIUM 140 mmol/L (135-144)
[2018-02-04] MEDS: DIGOXIN 0.125 MG TAB GTB (15:17)
[2018-02-04] MEDS: APIXABAN 5 MG TABLET PO ×2 (15:18→20:10)
[2018-02-04] MEDS: LORAZEPAM 2 MG INJ IM (18:33)
[2018-02-04] MEDS ORDERED: RISPERIDONE 0.25 MG TAB (19:37)
[2018-02-04] MEDS: ACETAMINOPHEN 325 MG TAB PO (20:10)
[2018-02-04] MEDS: VALPROIC ACID LIQUID CUP 250 MG/5 ML CUP PO (20:10)
[2018-02-04] MEDS ORDERED: RISPERIDONE (1 MG/ML PO SYG) PO (21:00)
[2018-02-04] MEDS ORDERED: VALPROIC ACID 250 MG CAP PO (21:00)
[2018-02-04] MEDS: RISPERIDONE 0.25 MG TAB PO (21:28)
[2018-02-05] MEDS: ACCU-CHEK XX (02:00)
[2018-02-05] MEDS: LORAZEPAM 2 MG INJ IV (03:07)
[2018-02-05] MEDS: clonAZEPAM 0.5 MG TAB PO (04:43)
[2018-02-05] MEDS: LANSOPRAZOLE 30 MG CAP GTB (05:25)
[2018-02-05 06:04] LABS: ADD MAN DIFF? NO
[2018-02-05 06:12] LABS: WHITE BLOOD COUNT 10.5 10^3/ul (4.8-10.8)
[2018-02-05 06:12] LABS: BASOPHILS % 0.4 % (0.0-2.0); EOSINOPHILS # 0.2 10^3/ul (0.0-0.5); EOSINOPHILS % 1.8 % (0.0-7.0); HEMATOCRIT 42.1 % (42.0-52.0); HEMOGLOBIN 13.5 g/dl (14.0-18.0); LYMPHOCYTES # 2.9 10^3/ul (0.8-2.9); LYMPHOCYTES % 27.8 % (15.0-51.0); MEAN CORPUSCULAR HEMOGLOBIN 26.5 pg (29.0-33.0); MEAN CORPUSCULAR HGB CONC 32.1 g/dl (32.0-37.0); MEAN CORPUSCULAR VOLUME 82.7 fl (82.0-101.0); MEAN PLATELET VOLUME 10.7 fl (7.4-10.4); MONOCYTE # 0.9 10^3/ul (0.3-0.9); MONOCYTES % 8.3 % (0.0-11.0); NEUTROPHIL # 6.4 10^3/ul (1.6-7.5); NEUTROPHILS % 60.9 % (39.0-77.0); PLATELET COUNT 282 10^3/UL (140-415); RED BLOOD COUNT 5.09 10^6/ul (4.70-6.10); RED CELL DISTRIBUTION WIDTH 14.7 % (11.5-14.5)
[2018-02-05 06:31] LABS: LACTIC ACID 1.9 mmol/L (0.5-2.0)
[2018-02-05 06:43] LABS: ANION GAP 13 (8-16); BLOOD UREA NITROGEN 14 mg/dl (7-20); CALCIUM 9.6 mg/dl (8.4-10.2); CARBON DIOXIDE 31 mmol/L (21-31); CHLORIDE 100 mmol/L (97-110); CREATININE 0.62 mg/dl (0.61-1.24); GLUCOSE 174 mg/dl (70-220); POTASSIUM 4.3 mmol/L (3.5-5.1); SODIUM 140 mmol/L (135-144)
[2018-02-05] MEDS: metFORMIN 500 MG TAB GTB ×2 (07:48→17:20)
[2018-02-05] MEDS: INSULIN DETEMIR [LEVEMIR] (100 UNITS/ML) SYG SC ×2 (08:00→21:01)
[2018-02-05] MEDS: INSULIN ASPART [NOVOLOG] 3 ML PEN SC ×7 (08:00→20:50)
[2018-02-05] MEDS: CEFEPIME 2GM/50 ML (PMX) 50 ML IVPB (08:09)
[2018-02-05] MEDS: BENAZEPRIL 10 MG TAB GTB (08:19)
[2018-02-05] MEDS: FUROSEMIDE 20 MG TAB GTB (08:19)
[2018-02-05] MEDS: DONEPEZIL 5 MG TAB PO (08:19)
[2018-02-05] MEDS: VALPROIC ACID LIQUID CUP 250 MG/5 ML CUP PO ×3 (08:19→21:00)
[2018-02-05] MEDS: COLLAGENASE 5 GM (UD JAR) TOP (08:20)
[2018-02-05] MEDS: METOPROLOL 25 MG TAB GTB ×2 (08:20→20:54)
[2018-02-05] MEDS: RISPERIDONE 0.25 MG TAB PO ×2 (08:20→20:50)
[2018-02-05] MEDS: APIXABAN 5 MG TABLET PO ×2 (08:20→20:50)
[2018-02-05] MEDS: DIGOXIN 0.125 MG TAB GTB (12:19)
[2018-02-06] MEDS: ACCU-CHEK XX (02:00)
[2018-02-06] MEDS: CEFEPIME 2GM/50 ML (PMX) 50 ML IVPB ×3 (02:22→21:22)
[2018-02-06] MEDS: LANSOPRAZOLE 30 MG CAP GTB (06:48)
[2018-02-06] MEDS: INSULIN ASPART [NOVOLOG] 3 ML PEN SC ×7 (08:00→21:21)
[2018-02-06] MEDS: metFORMIN 500 MG TAB GTB ×2 (08:00→17:13)
[2018-02-06] MEDS: INSULIN DETEMIR [LEVEMIR] (100 UNITS/ML) SYG SC ×2 (08:00→21:19)
[2018-02-06] MEDS: DEXTROSE 5%-0.45% NACL 500 ML BAG IV (12:30)
[2018-02-06] MEDS: DEXTROSE 5%-0.45% NACL 1,000 ML IV (13:21)
[2018-02-06] MEDS: DIGOXIN 0.125 MG TAB GTB (13:33)
[2018-02-06] MEDS: RISPERIDONE 0.25 MG TAB PO ×2 (13:34→21:17)
[2018-02-06] MEDS: APIXABAN 5 MG TABLET PO ×2 (13:34→21:17)
[2018-02-06] MEDS: DONEPEZIL 5 MG TAB PO (13:34)
[2018-02-06] MEDS: FUROSEMIDE 20 MG TAB GTB (13:35)
[2018-02-06] MEDS: BENAZEPRIL 10 MG TAB GTB (13:36)
[2018-02-06] MEDS: METOPROLOL 25 MG TAB GTB ×2 (13:36→21:22)
[2018-02-06] MEDS: VALPROIC ACID LIQUID CUP 250 MG/5 ML CUP PO ×2 (13:37→21:17)
[2018-02-06] MEDS: COLLAGENASE 5 GM (UD JAR) TOP (13:37)
[2018-02-06] MEDS: LORAZEPAM 2 MG INJ IV (14:00)
[2018-02-06 16:26] LABS: ADD MAN DIFF? NO
[2018-02-06 16:28] LABS: HEMATOCRIT 47.2 % (42.0-52.0); MEAN CORPUSCULAR HEMOGLOBIN 26.4 pg (29.0-33.0); MEAN CORPUSCULAR HGB CONC 31.8 g/dl (32.0-37.0); RED BLOOD COUNT 5.69 10^6/ul (4.70-6.10); RED CELL DISTRIBUTION WIDTH 15.1 % (11.5-14.5)
[2018-02-06 16:28] LABS: WHITE BLOOD COUNT 10.3 10^3/ul (4.8-10.8)
[2018-02-06 16:29] LABS: BASOPHILS % 0.3 % (0.0-2.0); EOSINOPHILS # 0.1 10^3/ul (0.0-0.5); EOSINOPHILS % 0.8 % (0.0-7.0); LYMPHOCYTES # 2.8 10^3/ul (0.8-2.9); LYMPHOCYTES % 27.3 % (15.0-51.0); MEAN PLATELET VOLUME 10.5 fl (7.4-10.4); MONOCYTE # 0.6 10^3/ul (0.3-0.9); NEUTROPHIL # 6.7 10^3/ul (1.6-7.5); NEUTROPHILS % 65.2 % (39.0-77.0); PLATELET COUNT 279 10^3/UL (140-415)
[2018-02-06 16:50] LABS: ANION GAP 14 (8-16); BLOOD UREA NITROGEN 19 mg/dl (7-20); CALCIUM 9.4 mg/dl (8.4-10.2); CARBON DIOXIDE 31 mmol/L (21-31); CHLORIDE 99 mmol/L (97-110); CREATININE 0.66 mg/dl (0.61-1.24); GLUCOSE 216 mg/dl (70-220); POTASSIUM 4.6 mmol/L (3.5-5.1); SODIUM 139 mmol/L (135-144)
[2018-02-06] MEDS: clonAZEPAM 0.5 MG TAB PO (17:03)
[2018-02-06] MEDS: CYANOCOBALAMIN 1000 MCG INJ IM (18:34)
[2018-02-07] MEDS: ACCU-CHEK XX (01:53)
[2018-02-07] MEDS: clonAZEPAM 0.5 MG TAB PO ×2 (05:12→16:25)
[2018-02-07] MEDS: LANSOPRAZOLE 30 MG CAP GTB (05:50)
[2018-02-07 06:58] LABS: ADD MAN DIFF? NO
[2018-02-07 07:09] LABS: WHITE BLOOD COUNT 11.6 10^3/ul (4.8-10.8)
[2018-02-07 07:09] LABS: BASOPHILS % 0.3 % (0.0-2.0); EOSINOPHILS # 0.2 10^3/ul (0.0-0.5); EOSINOPHILS % 1.6 % (0.0-7.0); HEMATOCRIT 46.8 % (42.0-52.0); HEMOGLOBIN 15.2 g/dl (14.0-18.0); LYMPHOCYTES # 3.2 10^3/ul (0.8-2.9); LYMPHOCYTES % 27.3 % (15.0-51.0); MEAN CORPUSCULAR HEMOGLOBIN 26.7 pg (29.0-33.0); MEAN CORPUSCULAR HGB CONC 32.5 g/dl (32.0-37.0); MEAN CORPUSCULAR VOLUME 82.2 fl (82.0-101.0); MONOCYTE # 0.7 10^3/ul (0.3-0.9); MONOCYTES % 6.2 % (0.0-11.0); NEUTROPHIL # 7.5 10^3/ul (1.6-7.5); NEUTROPHILS % 64.2 % (39.0-77.0); PLATELET COUNT 273 10^3/UL (140-415); RED BLOOD COUNT 5.69 10^6/ul (4.70-6.10); RED CELL DISTRIBUTION WIDTH 14.7 % (11.5-14.5)
[2018-02-07 07:18] LABS: ANION GAP 16 (8-16); BLOOD UREA NITROGEN 19 mg/dl (7-20); CALCIUM 9.4 mg/dl (8.4-10.2); CARBON DIOXIDE 27 mmol/L (21-31); CHLORIDE 101 mmol/L (97-110); CREATININE 0.61 mg/dl (0.61-1.24); GLUCOSE 167 mg/dl (70-220); POTASSIUM 4.5 mmol/L (3.5-5.1); SODIUM 139 mmol/L (135-144)
[2018-02-07] MEDS: RISPERIDONE 0.25 MG TAB PO ×2 (08:20→20:29)
[2018-02-07] MEDS: DONEPEZIL 5 MG TAB PO (08:20)
[2018-02-07] MEDS: APIXABAN 5 MG TABLET PO ×2 (08:20→20:29)
[2018-02-07] MEDS: COLLAGENASE 5 GM (UD JAR) TOP (08:20)
[2018-02-07] MEDS: METOPROLOL 25 MG TAB GTB ×2 (08:21→20:49)
[2018-02-07] MEDS: VALPROIC ACID LIQUID CUP 250 MG/5 ML CUP PO ×2 (08:21→20:28)
[2018-02-07] MEDS: metFORMIN 500 MG TAB GTB ×2 (08:21→17:27)
[2018-02-07] MEDS: FUROSEMIDE 20 MG TAB GTB (08:22)
[2018-02-07] MEDS: BENAZEPRIL 10 MG TAB GTB ×2 (08:22→20:50)
[2018-02-07] MEDS: CEFEPIME 2GM/50 ML (PMX) 50 ML IVPB (08:25)
[2018-02-07] MEDS: INSULIN DETEMIR [LEVEMIR] (100 UNITS/ML) SYG SC ×2 (08:26→20:48)
[2018-02-07] MEDS: INSULIN ASPART [NOVOLOG] 3 ML PEN SC ×7 (08:27→20:22)
[2018-02-07] MEDS: DEXTROSE 5%-0.45% NACL 1,000 ML IV (11:09)
[2018-02-07] MEDS: DIGOXIN 0.125 MG TAB GTB (13:19)
[2018-02-07] MEDS: QUETIAPINE 100 MG TAB PO (20:26)
[2018-02-08] MEDS: ACCU-CHEK XX (01:59)
[2018-02-08] MEDS: LANSOPRAZOLE 30 MG CAP GTB (05:28)
[2018-02-08] MEDS: INSULIN ASPART [NOVOLOG] 3 ML PEN SC ×7 (07:58→20:42)
[2018-02-08 08:00] LABS: ADD MAN DIFF? NO
[2018-02-08 08:07] LABS: BASOPHILS % 0.2 % (0.0-2.0); EOSINOPHILS # 0.2 10^3/ul (0.0-0.5); EOSINOPHILS % 1.5 % (0.0-7.0); HEMATOCRIT 40.6 % (42.0-52.0); HEMOGLOBIN 13.1 g/dl (14.0-18.0); LYMPHOCYTES % 17.4 % (15.0-51.0); MEAN CORPUSCULAR HEMOGLOBIN 26.6 pg (29.0-33.0); MEAN CORPUSCULAR HGB CONC 32.3 g/dl (32.0-37.0); MEAN CORPUSCULAR VOLUME 82.4 fl (82.0-101.0); MONOCYTE # 0.9 10^3/ul (0.3-0.9); MONOCYTES % 7.6 % (0.0-11.0); NEUTROPHIL # 8.5 10^3/ul (1.6-7.5); PLATELET COUNT 253 10^3/UL (140-415); RED BLOOD COUNT 4.93 10^6/ul (4.70-6.10); RED CELL DISTRIBUTION WIDTH 14.9 % (11.5-14.5)
[2018-02-08 08:07] LABS: WHITE BLOOD COUNT 11.6 10^3/ul (4.8-10.8)
[2018-02-08] MEDS: BENAZEPRIL 10 MG TAB GTB ×2 (08:13→20:41)
[2018-02-08] MEDS: METOPROLOL 25 MG TAB GTB ×2 (08:14→20:42)
[2018-02-08] MEDS: FUROSEMIDE 20 MG TAB GTB (08:14)
[2018-02-08] MEDS: RISPERIDONE 0.25 MG TAB PO ×2 (08:14→20:36)
[2018-02-08] MEDS: APIXABAN 5 MG TABLET PO ×2 (08:14→20:34)
[2018-02-08] MEDS: DONEPEZIL 5 MG TAB PO (08:14)
[2018-02-08] MEDS: VALPROIC ACID LIQUID CUP 250 MG/5 ML CUP PO ×2 (08:15→20:36)
[2018-02-08] MEDS: metFORMIN 500 MG TAB GTB ×2 (08:16→17:27)
[2018-02-08] MEDS: INSULIN DETEMIR [LEVEMIR] (100 UNITS/ML) SYG SC ×2 (08:17→20:41)
[2018-02-08] MEDS: COLLAGENASE 5 GM (UD JAR) TOP (08:18)
[2018-02-08 08:24] LABS: ANION GAP 10 (8-16); BLOOD UREA NITROGEN 19 mg/dl (7-20); CALCIUM 9.2 mg/dl (8.4-10.2); CARBON DIOXIDE 30 mmol/L (21-31); CHLORIDE 103 mmol/L (97-110); CREATININE 0.61 mg/dl (0.61-1.24); GLUCOSE 147 mg/dl (70-220); POTASSIUM 4.1 mmol/L (3.5-5.1); SODIUM 139 mmol/L (135-144)
[2018-02-08] MEDS: DEXTROSE 5%-0.45% NACL 1,000 ML IV (11:09)
[2018-02-08] MEDS: DIGOXIN 0.125 MG TAB GTB (13:37)
[2018-02-08] MEDS: QUETIAPINE 100 MG TAB PO (20:36)
[2018-02-09] MEDS: ACCU-CHEK XX (02:00)
[2018-02-09] MEDS: LANSOPRAZOLE 30 MG CAP GTB (05:36)
[2018-02-09] MEDS: INSULIN ASPART [NOVOLOG] 3 ML PEN SC ×7 (08:00→21:23)
[2018-02-09] MEDS: COLLAGENASE 5 GM (UD JAR) TOP (08:15)
[2018-02-09] MEDS: VALPROIC ACID LIQUID CUP 250 MG/5 ML CUP PO ×2 (08:16→21:05)
[2018-02-09] MEDS: APIXABAN 5 MG TABLET PO ×2 (08:16→21:06)
[2018-02-09] MEDS: metFORMIN 500 MG TAB GTB ×2 (08:16→17:10)
[2018-02-09] MEDS: DONEPEZIL 5 MG TAB PO (08:16)
[2018-02-09] MEDS: RISPERIDONE 0.25 MG TAB PO ×2 (08:17→21:06)
[2018-02-09] MEDS: FUROSEMIDE 20 MG TAB GTB (08:18)
[2018-02-09] MEDS: BENAZEPRIL 10 MG TAB GTB ×2 (08:18→21:00)
[2018-02-09] MEDS: METOPROLOL 25 MG TAB GTB ×2 (08:18→21:07)
[2018-02-09] MEDS: INSULIN DETEMIR [LEVEMIR] (100 UNITS/ML) SYG SC ×2 (08:20→21:12)
[2018-02-09] MEDS: DEXTROSE 5%-0.45% NACL 1,000 ML IV (11:09)
[2018-02-09] MEDS: DIGOXIN 0.125 MG TAB GTB (14:00)
[2018-02-09] MEDS: QUETIAPINE 100 MG TAB PO (21:07)
[2018-02-09] MEDS: LORAZEPAM 2 MG INJ IM (22:44)
[2018-02-10] MEDS: ACCU-CHEK XX (02:00)
[2018-02-10] MEDS: LANSOPRAZOLE 30 MG CAP GTB (06:51)
[2018-02-10 07:17] LABS: ADD MAN DIFF? NO
[2018-02-10 07:21] LABS: BASOPHILS % 0.2 % (0.0-2.0); EOSINOPHILS # 0.2 10^3/ul (0.0-0.5); HEMATOCRIT 41.7 % (42.0-52.0); HEMOGLOBIN 13.6 g/dl (14.0-18.0); LYMPHOCYTES # 2.2 10^3/ul (0.8-2.9); LYMPHOCYTES % 24.2 % (15.0-51.0); MEAN CORPUSCULAR HEMOGLOBIN 26.7 pg (29.0-33.0); MEAN CORPUSCULAR HGB CONC 32.6 g/dl (32.0-37.0); MEAN CORPUSCULAR VOLUME 81.8 fl (82.0-101.0); MEAN PLATELET VOLUME 10.7 fl (7.4-10.4); MONOCYTE # 0.8 10^3/ul (0.3-0.9); MONOCYTES % 8.5 % (0.0-11.0); NEUTROPHIL # 5.8 10^3/ul (1.6-7.5); NEUTROPHILS % 64.7 % (39.0-77.0); PLATELET COUNT 236 10^3/UL (140-415); RED CELL DISTRIBUTION WIDTH 14.6 % (11.5-14.5)
[2018-02-10 07:42] LABS: ANION GAP 13 (8-16); BLOOD UREA NITROGEN 16 mg/dl (7-20); CALCIUM 9.6 mg/dl (8.4-10.2); CARBON DIOXIDE 32 mmol/L (21-31); CHLORIDE 100 mmol/L (97-110); CREATININE 0.55 mg/dl (0.61-1.24); GLUCOSE 65 mg/dl (70-220); POTASSIUM 3.7 mmol/L (3.5-5.1); SODIUM 141 mmol/L (135-144)
[2018-02-10 08:00] LABS: FREE T3 4.53 pg/ml (2.77-5.27)
[2018-02-10] MEDS: INSULIN ASPART [NOVOLOG] 3 ML PEN SC ×7 (08:00→21:00)
[2018-02-10 08:05] LABS: FREE T4 (FREE THYROXINE) 1.51 ng/dl (0.85-1.93)
[2018-02-10] MEDS: APIXABAN 5 MG TABLET PO ×2 (08:25→21:27)
[2018-02-10] MEDS: METOPROLOL 25 MG TAB GTB ×2 (08:25→21:26)
[2018-02-10] MEDS: metFORMIN 500 MG TAB GTB ×2 (08:25→17:04)
[2018-02-10] MEDS: VALPROIC ACID LIQUID CUP 250 MG/5 ML CUP PO ×2 (08:26→21:27)
[2018-02-10] MEDS: BENAZEPRIL 10 MG TAB GTB (08:26)
[2018-02-10] MEDS: RISPERIDONE 0.25 MG TAB PO ×2 (08:26→21:26)
[2018-02-10] MEDS: DONEPEZIL 5 MG TAB PO (08:26)
[2018-02-10] MEDS: FUROSEMIDE 20 MG TAB GTB (08:28)
[2018-02-10] MEDS: INSULIN DETEMIR [LEVEMIR] (100 UNITS/ML) SYG SC ×2 (08:31→21:30)
[2018-02-10] MEDS: COLLAGENASE 5 GM (UD JAR) TOP (08:40)
[2018-02-10] MEDS: DEXTROSE 5%-0.45% NACL 1,000 ML IV (11:09)
[2018-02-10] MEDS: DIGOXIN 0.125 MG TAB GTB (13:00)
[2018-02-10 19:37] LABS: RAPID PLASMA REAGIN NONREACTIVE (NR)
[2018-02-10] MEDS: QUETIAPINE 100 MG TAB PO (21:26)
[2018-02-10] MEDS: clonAZEPAM 0.5 MG TAB PO (21:26)
[2018-02-10] MEDS: LORAZEPAM 1 MG TAB PO (23:04)
[2018-02-11] MEDS: ACCU-CHEK XX (02:00)
[2018-02-11] MEDS: LANSOPRAZOLE 30 MG CAP GTB (06:23)
[2018-02-11] MEDS: FUROSEMIDE 20 MG TAB GTB (09:48)
[2018-02-11] MEDS: RISPERIDONE 0.25 MG TAB PO ×2 (09:48→20:47)
[2018-02-11] MEDS: VALPROIC ACID LIQUID CUP 250 MG/5 ML CUP PO ×2 (09:49→20:47)
[2018-02-11] MEDS: APIXABAN 5 MG TABLET PO ×2 (09:49→20:48)
[2018-02-11] MEDS: metFORMIN 500 MG TAB GTB ×2 (09:49→17:35)
[2018-02-11] MEDS: BENAZEPRIL 10 MG TAB GTB (09:50)
[2018-02-11] MEDS: DONEPEZIL 5 MG TAB PO (09:50)
[2018-02-11] MEDS: METOPROLOL 25 MG TAB GTB (09:50)
[2018-02-11] MEDS: COLLAGENASE 5 GM (UD JAR) TOP (09:50)
[2018-02-11] MEDS: INSULIN ASPART [NOVOLOG] 3 ML PEN SC ×7 (10:11→20:44)
[2018-02-11] MEDS: INSULIN DETEMIR [LEVEMIR] (100 UNITS/ML) SYG SC ×2 (10:12→20:49)
[2018-02-11] MEDS: DEXTROSE 5%-0.45% NACL 1,000 ML IV (11:09)
[2018-02-11] MEDS: DIGOXIN 0.125 MG TAB GTB (13:21)
[2018-02-11] MEDS: LORAZEPAM 1 MG TAB PO (16:30)
[2018-02-11] MEDS: QUETIAPINE 100 MG TAB PO (20:47)
[2018-02-12] MEDS: ACCU-CHEK XX (02:00)
[2018-02-12] MEDS: LANSOPRAZOLE 30 MG CAP GTB (05:51)
[2018-02-12] MEDS: INSULIN ASPART [NOVOLOG] 3 ML PEN SC ×7 (08:00→20:16)
[2018-02-12] MEDS: VALPROIC ACID LIQUID CUP 250 MG/5 ML CUP PO ×2 (08:25→20:15)
[2018-02-12] MEDS: metFORMIN 500 MG TAB GTB ×2 (08:26→17:45)
[2018-02-12] MEDS: APIXABAN 5 MG TABLET PO ×2 (08:26→20:16)
[2018-02-12] MEDS: FUROSEMIDE 20 MG TAB GTB (08:27)
[2018-02-12] MEDS: DONEPEZIL 5 MG TAB PO (08:27)
[2018-02-12] MEDS: METOPROLOL (XL) 25 MG TAB PO (08:27)
[2018-02-12] MEDS: BENAZEPRIL 10 MG TAB GTB (08:27)
[2018-02-12] MEDS: RISPERIDONE 0.25 MG TAB PO ×2 (08:28→20:16)
[2018-02-12] MEDS: INSULIN DETEMIR [LEVEMIR] (100 UNITS/ML) SYG SC ×2 (08:31→20:21)
[2018-02-12] MEDS: COLLAGENASE 5 GM (UD JAR) TOP (08:34)
[2018-02-12] MEDS: DEXTROSE 5%-0.45% NACL 1,000 ML IV (11:09)
[2018-02-12] MEDS: DIGOXIN 0.125 MG TAB GTB (13:42)
[2018-02-12] MEDS ORDERED: CEPASTAT LOZENGE MT (19:00)
[2018-02-12] MEDS: QUETIAPINE 100 MG TAB PO (20:16)
[2018-02-13] MEDS: LORAZEPAM 1 MG TAB PO ×2 (00:09→17:40)
[2018-02-13] MEDS: ACCU-CHEK XX (01:38)
[2018-02-13] MEDS: LANSOPRAZOLE 30 MG CAP GTB (06:00)
[2018-02-13] MEDS: INSULIN ASPART [NOVOLOG] 3 ML PEN SC ×7 (07:49→20:38)
[2018-02-13] MEDS: DONEPEZIL 5 MG TAB PO (08:27)
[2018-02-13] MEDS: FUROSEMIDE 20 MG TAB GTB (08:27)
[2018-02-13] MEDS: BENAZEPRIL 10 MG TAB GTB (08:27)
[2018-02-13] MEDS: metFORMIN 500 MG TAB GTB ×2 (08:27→17:10)
[2018-02-13] MEDS: VALPROIC ACID LIQUID CUP 250 MG/5 ML CUP PO ×2 (08:27→20:36)
[2018-02-13] MEDS: APIXABAN 5 MG TABLET PO ×2 (08:28→20:36)
[2018-02-13] MEDS: RISPERIDONE 0.25 MG TAB PO ×2 (08:28→20:36)
[2018-02-13] MEDS: METOPROLOL (XL) 25 MG TAB PO (08:28)
[2018-02-13] MEDS: COLLAGENASE 5 GM (UD JAR) TOP (08:30)
[2018-02-13] MEDS: INSULIN DETEMIR [LEVEMIR] (100 UNITS/ML) SYG SC ×2 (08:30→20:38)
[2018-02-13] MEDS: DEXTROSE 5%-0.45% NACL 1,000 ML IV (08:30)
[2018-02-13] MEDS: DIGOXIN 0.125 MG TAB GTB (13:08)
[2018-02-13] MEDS: QUETIAPINE 100 MG TAB PO (20:36)
[2018-02-14] MEDS: ACCU-CHEK XX (02:00)
[2018-02-14] MEDS: LANSOPRAZOLE 30 MG CAP GTB (06:28)
[2018-02-14 06:52] LABS: ADD MAN DIFF? NO
[2018-02-14 06:56] LABS: BASOPHILS % 0.5 % (0.0-2.0); EOSINOPHILS # 0.3 10^3/ul (0.0-0.5); EOSINOPHILS % 3.5 % (0.0-7.0); HEMATOCRIT 40.6 % (42.0-52.0); HEMOGLOBIN 13.2 g/dl (14.0-18.0); LYMPHOCYTES # 2.7 10^3/ul (0.8-2.9); LYMPHOCYTES % 35.3 % (15.0-51.0); MEAN CORPUSCULAR HEMOGLOBIN 26.4 pg (29.0-33.0); MEAN CORPUSCULAR HGB CONC 32.5 g/dl (32.0-37.0); MEAN CORPUSCULAR VOLUME 81.2 fl (82.0-101.0); MEAN PLATELET VOLUME 11.1 fl (7.4-10.4); MONOCYTE # 0.7 10^3/ul (0.3-0.9); MONOCYTES % 9.1 % (0.0-11.0); NEUTROPHIL # 3.9 10^3/ul (1.6-7.5); NEUTROPHILS % 51.2 % (39.0-77.0); PLATELET COUNT 243 10^3/UL (140-415); RED CELL DISTRIBUTION WIDTH 14.5 % (11.5-14.5)
[2018-02-14 06:56] LABS: WHITE BLOOD COUNT 7.6 10^3/ul (4.8-10.8)
[2018-02-14 07:25] LABS: ANION GAP 11 (8-16); BLOOD UREA NITROGEN 25 mg/dl (7-20); CALCIUM 9.3 mg/dl (8.4-10.2); CARBON DIOXIDE 31 mmol/L (21-31); CHLORIDE 102 mmol/L (97-110); CREATININE 0.59 mg/dl (0.61-1.24); GLUCOSE 78 mg/dl (70-220); POTASSIUM 4.1 mmol/L (3.5-5.1); SODIUM 140 mmol/L (135-144)
[2018-02-14] MEDS: INSULIN ASPART [NOVOLOG] 3 ML PEN SC ×7 (08:00→20:24)
[2018-02-14] MEDS: metFORMIN 500 MG TAB GTB ×2 (08:16→17:10)
[2018-02-14] MEDS: DONEPEZIL 5 MG TAB PO (08:16)
[2018-02-14] MEDS: BENAZEPRIL 10 MG TAB GTB (08:17)
[2018-02-14] MEDS: APIXABAN 5 MG TABLET PO ×2 (08:17→20:24)
[2018-02-14] MEDS: RISPERIDONE 0.25 MG TAB PO ×2 (08:18→20:24)
[2018-02-14] MEDS: METOPROLOL (XL) 25 MG TAB PO (08:18)
[2018-02-14] MEDS: VALPROIC ACID LIQUID CUP 250 MG/5 ML CUP PO ×2 (08:20→20:22)
[2018-02-14] MEDS: FUROSEMIDE 20 MG TAB GTB (08:21)
[2018-02-14] MEDS: COLLAGENASE 5 GM (UD JAR) TOP (08:21)
[2018-02-14] MEDS: INSULIN DETEMIR [LEVEMIR] (100 UNITS/ML) SYG SC ×2 (08:23→20:23)
[2018-02-14] MEDS: DEXTROSE 5%-0.45% NACL 1,000 ML IV (11:09)
[2018-02-14] MEDS: DIGOXIN 0.125 MG TAB GTB (12:32)
[2018-02-14] MEDS: QUETIAPINE 100 MG TAB PO (20:24)
[2018-02-15] MEDS: ACCU-CHEK XX (02:00)
[2018-02-15] MEDS: LANSOPRAZOLE 30 MG CAP GTB (05:27)
[2018-02-15] MEDS: metFORMIN 500 MG TAB GTB ×2 (08:05→17:27)
[2018-02-15] MEDS: VALPROIC ACID LIQUID CUP 250 MG/5 ML CUP PO ×2 (08:05→20:59)
[2018-02-15] MEDS: APIXABAN 5 MG TABLET PO ×2 (08:05→20:58)
[2018-02-15] MEDS: METOPROLOL (XL) 25 MG TAB PO (08:06)
[2018-02-15] MEDS: FUROSEMIDE 20 MG TAB GTB (08:06)
[2018-02-15] MEDS: DONEPEZIL 5 MG TAB PO (08:07)
[2018-02-15] MEDS: BENAZEPRIL 10 MG TAB GTB (08:07)
[2018-02-15] MEDS: RISPERIDONE 0.25 MG TAB PO ×2 (08:07→20:59)
[2018-02-15] MEDS: INSULIN DETEMIR [LEVEMIR] (100 UNITS/ML) SYG SC ×2 (08:10→21:00)
[2018-02-15] MEDS: INSULIN ASPART [NOVOLOG] 3 ML PEN SC ×7 (08:10→21:01)
[2018-02-15] MEDS: COLLAGENASE 5 GM (UD JAR) TOP (08:15)
[2018-02-15 09:08] LABS: ANION GAP 12 (8-16); BLOOD UREA NITROGEN 21 mg/dl (7-20); CALCIUM 9.3 mg/dl (8.4-10.2); CARBON DIOXIDE 31 mmol/L (21-31); CHLORIDE 100 mmol/L (97-110); CREATININE 0.63 mg/dl (0.61-1.24); GLUCOSE 206 mg/dl (70-220); SODIUM 139 mmol/L (135-144)
[2018-02-15] MEDS: DEXTROSE 5%-0.45% NACL 1,000 ML IV (10:23)
[2018-02-15] MEDS: DIGOXIN 0.125 MG TAB GTB (12:24)
[2018-02-15] MEDS: QUETIAPINE 100 MG TAB PO (20:59)
[2018-02-16] MEDS: ACCU-CHEK XX (01:51)
[2018-02-16 06:42] LABS: ADD MAN DIFF? NO
[2018-02-16 06:51] LABS: WHITE BLOOD COUNT 8.8 10^3/ul (4.8-10.8)
[2018-02-16 06:51] LABS: BASOPHILS % 0.3 % (0.0-2.0); EOSINOPHILS # 0.2 10^3/ul (0.0-0.5); EOSINOPHILS % 2.7 % (0.0-7.0); HEMOGLOBIN 13.7 g/dl (14.0-18.0); LYMPHOCYTES # 3.1 10^3/ul (0.8-2.9); LYMPHOCYTES % 35.1 % (15.0-51.0); MEAN CORPUSCULAR HEMOGLOBIN 26.3 pg (29.0-33.0); MEAN CORPUSCULAR HGB CONC 31.1 g/dl (32.0-37.0); MEAN CORPUSCULAR VOLUME 84.6 fl (82.0-101.0); MEAN PLATELET VOLUME 11.7 fl (7.4-10.4); MONOCYTE # 0.8 10^3/ul (0.3-0.9); MONOCYTES % 9.3 % (0.0-11.0); NEUTROPHIL # 4.6 10^3/ul (1.6-7.5); POSITIVE DIFF @See below; RED CELL DISTRIBUTION WIDTH 14.6 % (11.5-14.5)
[2018-02-16 07:11] LABS: PLATELET COUNT 172 10^3/UL (140-415)
[2018-02-16 07:28] LABS: ANION GAP 14 (8-16); BLOOD UREA NITROGEN 20 mg/dl (7-20); CALCIUM 9.6 mg/dl (8.4-10.2); CARBON DIOXIDE 28 mmol/L (21-31); CHLORIDE 103 mmol/L (97-110); CREATININE 0.58 mg/dl (0.61-1.24); GLUCOSE 126 mg/dl (70-220); POTASSIUM 4.5 mmol/L (3.5-5.1); SODIUM 140 mmol/L (135-144)
[2018-02-16] MEDS: INSULIN DETEMIR [LEVEMIR] (100 UNITS/ML) SYG SC ×2 (08:00→20:57)
[2018-02-16] MEDS: INSULIN ASPART [NOVOLOG] 3 ML PEN SC ×7 (08:00→20:52)
[2018-02-16] MEDS: COLLAGENASE 5 GM (UD JAR) TOP (09:00)
[2018-02-16 10:46] LABS: ANISOCYTOSIS 1+ (0-0); BAND NEUTROPHILS #M 0.6 10^3/ul (0.0-0.6); BAND NEUTROPHILS % (M) 7 % (0-4); EOSINOPHILS % (M) 2 % (0-7); ERYTHROBLAST% (NRBC) (M) 1 % (0-0); LYMPHOCYTES #M 3.7 10^3/ul (0.8-2.9); LYMPHOCYTES % (M) 43 % (15-51); MICROCYTOSIS 1+ (0-0); MONOCYTE #M 0.7 10^3/ul (0.3-0.9); MONOCYTES % (M) 8 % (0-11); PLATELET ESTIMATE NORMAL; PLATELET MORPHOLOGY COMMENT @See below; POIKILOCYTOSIS 1+ (0-0); POLYCHROMASIA 1+ (0-0); REACTIVE LYMPHOCYTES #M 0.1 10^3/ul (0.0-0.0); REACTIVE LYMPHOCYTES% (M) 2 % (0-0); SEG NEUT #M 3.4 10^3/ul (1.6-7.5); SEGMENTED NEUTROPHILS (M) % 38 % (39-77); SMUDGE%M 6 % (0-0)
[2018-02-16] MEDS: DEXTROSE 5%-0.45% NACL 1,000 ML IV (11:09)
[2018-02-16 12:22] LABS: ADD MAN DIFF? NO
[2018-02-16 12:26] LABS: BASOPHILS % 0.3 % (0.0-2.0); EOSINOPHILS # 0.3 10^3/ul (0.0-0.5); HEMATOCRIT 39.5 % (42.0-52.0); HEMOGLOBIN 12.9 g/dl (14.0-18.0); LYMPHOCYTES # 2.3 10^3/ul (0.8-2.9); LYMPHOCYTES % 25.8 % (15.0-51.0); MEAN CORPUSCULAR HEMOGLOBIN 26.4 pg (29.0-33.0); MEAN CORPUSCULAR HGB CONC 32.7 g/dl (32.0-37.0); MEAN CORPUSCULAR VOLUME 80.9 fl (82.0-101.0); MEAN PLATELET VOLUME 11.3 fl (7.4-10.4); MONOCYTE # 0.8 10^3/ul (0.3-0.9); MONOCYTES % 9.4 % (0.0-11.0); NEUTROPHIL # 5.4 10^3/ul (1.6-7.5); NEUTROPHILS % 60.9 % (39.0-77.0); PLATELET COUNT 279 10^3/UL (140-415); RED BLOOD COUNT 4.88 10^6/ul (4.70-6.10); RED CELL DISTRIBUTION WIDTH 14.7 % (11.5-14.5)
[2018-02-16 12:26] LABS: WHITE BLOOD COUNT 8.9 10^3/ul (4.8-10.8)
[2018-02-16] MEDS: LANSOPRAZOLE 30 MG CAP GTB (12:44)
[2018-02-16] MEDS: FUROSEMIDE 20 MG TAB GTB (12:44)
[2018-02-16] MEDS: BENAZEPRIL 10 MG TAB GTB (12:44)
[2018-02-16] MEDS: APIXABAN 5 MG TABLET PO ×2 (12:45→20:52)
[2018-02-16] MEDS: metFORMIN 500 MG TAB GTB ×2 (12:45→17:20)
[2018-02-16] MEDS: RISPERIDONE 0.25 MG TAB PO ×2 (12:45→20:52)
[2018-02-16] MEDS: DONEPEZIL 5 MG TAB PO (12:45)
[2018-02-16] MEDS: METOPROLOL (XL) 25 MG TAB PO (12:45)
[2018-02-16] MEDS: VALPROIC ACID LIQUID CUP 250 MG/5 ML CUP PO ×2 (12:46→20:51)
[2018-02-16] MEDS: DIGOXIN 0.125 MG TAB GTB (12:52)
[2018-02-16 12:56] LABS: ANION GAP 10 (8-16); BLOOD UREA NITROGEN 20 mg/dl (7-20); CALCIUM 9.2 mg/dl (8.4-10.2); CARBON DIOXIDE 29 mmol/L (21-31); CHLORIDE 104 mmol/L (97-110); CREATININE 0.54 mg/dl (0.61-1.24); GLUCOSE 136 mg/dl (70-220); POTASSIUM 4.3 mmol/L (3.5-5.1); SODIUM 139 mmol/L (135-144)
[2018-02-16] MEDS: QUETIAPINE 100 MG TAB PO (20:52)
[2018-02-16] MEDS: LORAZEPAM 1 MG TAB PO (22:29)
[2018-02-17] MEDS: ACCU-CHEK XX (02:00)
[2018-02-17] MEDS: LANSOPRAZOLE 30 MG CAP GTB (06:08)
[2018-02-17] MEDS: INSULIN ASPART [NOVOLOG] 3 ML PEN SC ×7 (08:00→20:44)
[2018-02-17 08:45] LABS: ADD MAN DIFF? NO
[2018-02-17 08:53] LABS: BASOPHILS % 0.4 % (0.0-2.0); EOSINOPHILS # 0.3 10^3/ul (0.0-0.5); HEMATOCRIT 39.1 % (42.0-52.0); HEMOGLOBIN 12.7 g/dl (14.0-18.0); LYMPHOCYTES # 3.3 10^3/ul (0.8-2.9); LYMPHOCYTES % 35.6 % (15.0-51.0); MEAN CORPUSCULAR HEMOGLOBIN 26.6 pg (29.0-33.0); MEAN CORPUSCULAR HGB CONC 32.5 g/dl (32.0-37.0); MEAN PLATELET VOLUME 11.6 fl (7.4-10.4); MONOCYTE # 0.9 10^3/ul (0.3-0.9); MONOCYTES % 9.6 % (0.0-11.0); NEUTROPHIL # 4.7 10^3/ul (1.6-7.5); PLATELET COUNT 288 10^3/UL (140-415); RED BLOOD COUNT 4.77 10^6/ul (4.70-6.10); RED CELL DISTRIBUTION WIDTH 14.6 % (11.5-14.5)
[2018-02-17 08:53] LABS: WHITE BLOOD COUNT 9.1 10^3/ul (4.8-10.8)
[2018-02-17 09:08] LABS: ANION GAP 8 (8-16); BLOOD UREA NITROGEN 21 mg/dl (7-20); CALCIUM 9.2 mg/dl (8.4-10.2); CARBON DIOXIDE 32 mmol/L (21-31); CHLORIDE 105 mmol/L (97-110); CREATININE 0.62 mg/dl (0.61-1.24); GLUCOSE 117 mg/dl (70-220); POTASSIUM 4.3 mmol/L (3.5-5.1); SODIUM 141 mmol/L (135-144)
[2018-02-17] MEDS: INSULIN DETEMIR [LEVEMIR] (100 UNITS/ML) SYG SC ×2 (10:06→20:58)
[2018-02-17] MEDS: VALPROIC ACID LIQUID CUP 250 MG/5 ML CUP PO ×2 (10:07→20:43)
[2018-02-17] MEDS: METOPROLOL (XL) 25 MG TAB PO (10:09)
[2018-02-17] MEDS: BENAZEPRIL 10 MG TAB GTB (10:09)
[2018-02-17] MEDS: metFORMIN 500 MG TAB GTB ×2 (10:09→17:44)
[2018-02-17] MEDS: APIXABAN 5 MG TABLET PO ×2 (10:09→20:44)
[2018-02-17] MEDS: DONEPEZIL 5 MG TAB PO (10:09)
[2018-02-17] MEDS: FUROSEMIDE 20 MG TAB GTB (10:09)
[2018-02-17] MEDS: RISPERIDONE 0.25 MG TAB PO ×2 (10:09→20:44)
[2018-02-17] MEDS: COLLAGENASE 5 GM (UD JAR) TOP (10:10)
[2018-02-17] MEDS: DIGOXIN 0.125 MG TAB GTB (12:55)
[2018-02-17] MEDS: clonAZEPAM 0.5 MG TAB PO (17:44)
[2018-02-17] MEDS: QUETIAPINE 100 MG TAB PO (20:44)
[2018-02-17] MEDS: LORAZEPAM 1 MG TAB PO (21:15)
[2018-02-18] MEDS: ACCU-CHEK XX (02:00)
[2018-02-18] MEDS: LANSOPRAZOLE 30 MG CAP GTB (05:07)
[2018-02-18] MEDS: INSULIN ASPART [NOVOLOG] 3 ML PEN SC ×6 (08:00→17:32)
[2018-02-18] MEDS: metFORMIN 500 MG TAB GTB ×2 (08:35→17:28)
[2018-02-18] MEDS: RISPERIDONE 0.25 MG TAB PO (08:38)
[2018-02-18] MEDS: COLLAGENASE 5 GM (UD JAR) TOP (08:38)
[2018-02-18] MEDS: VALPROIC ACID LIQUID CUP 250 MG/5 ML CUP PO (08:39)
[2018-02-18] MEDS: DONEPEZIL 5 MG TAB PO (08:39)
[2018-02-18] MEDS: APIXABAN 5 MG TABLET PO (08:39)
[2018-02-18] MEDS: FUROSEMIDE 20 MG TAB GTB (08:42)
[2018-02-18] MEDS: BENAZEPRIL 10 MG TAB GTB (08:42)
[2018-02-18] MEDS: METOPROLOL (XL) 25 MG TAB PO (08:43)
[2018-02-18] MEDS: INSULIN DETEMIR [LEVEMIR] (100 UNITS/ML) SYG SC (08:43)
[2018-02-18] MEDS: DIGOXIN 0.125 MG TAB GTB (13:10)
[2018-02-18] MEDS: LORAZEPAM 1 MG TAB PO (17:48)
== END 2018-02-18 18:27 | DRG 871 ==
LOC: 6WM 23:34 → 5EC 02-08 08:09 → E/R 21:18 → 6WM 01-29 02:24 → 5EC 02-05 21:43 → 6WM 02-03 18:56
DX: A41.9 Sepsis, unspecified organism (principal); I50.23 Acute on chronic systolic (congestive) heart failure; G92 Toxic encephalopathy; J18.9 Pneumonia, unspecified organism; I62.03 Nontraumatic chronic subdural hemorrhage; E44.0 Moderate protein-calorie malnutrition; L97.429 Non-pressure chronic ulcer of left heel and midfoot with unspecified severity; L97.419 Non-pressure chronic ulcer of right heel and midfoot with unspecified severity; D68.69 Other thrombophilia; E87.0 Hyperosmolality and hypernatremia; I48.92 Unspecified atrial flutter; I50.84 End stage heart failure; I25.10 Atherosclerotic heart disease of native coronary artery without angina pectoris; I48.2 Chronic atrial fibrillation; I25.5 Ischemic cardiomyopathy; I49.3 Ventricular premature depolarization; I11.0 Hypertensive heart disease with heart failure; J40 Bronchitis, not specified as acute or chronic; E11.9 Type 2 diabetes mellitus without complications; R13.10 Dysphagia, unspecified; F20.9 Schizophrenia, unspecified; F32.9 Major depressive disorder, single episode, unspecified; F02.80 Dementia in other diseases classified elsewhere, unspecified severity, without behavioral disturbance, psychotic disturbance, mood disturbance, and anxiety; E78.5 Hyperlipidemia, unspecified; E11.22 Type 2 diabetes mellitus with diabetic chronic kidney disease; E87.5 Hyperkalemia; G30.9 Alzheimer's disease, unspecified; D64.9 Anemia, unspecified; Z93.1 Gastrostomy status; Z99.3 Dependence on wheelchair; Z87.891 Personal history of nicotine dependence; Z95.1 Presence of aortocoronary bypass graft; Z86.79 Personal history of other diseases of the circulatory system; Z68.22 Body mass index [BMI] 22.0-22.9, adult; E11.621 Type 2 diabetes mellitus with foot ulcer; Z89.421 Acquired absence of other right toe(s); Z88.0 Allergy status to penicillin; Z93.3 Colostomy status
CPT/HCPCS: 36415; 70450; 70553; 71045; 80048; 80053; 80307; 81003; 82607; 82962; 83605; 84439; 84443; 84481; 84484; 85025; 86308; 86592; 87040; 87081; 87086; 92610; 93005; 96360; 97110; 97116; 97161; 97530; 99217; 99291-25

== ENCOUNTER 2018-09-17 14:52 | Inpatient (IN) | payer MEDICARE, BC ==
[2018-09-17 15:18] LABS: ADD MAN DIFF? NO
[2018-09-17 15:23] LABS: WHITE BLOOD COUNT 16.4 10^3/ul (4.8-10.8)
[2018-09-17 15:23] LABS: BASOPHILS % 0.2 % (0.0-2.0); EOSINOPHILS # 0.1 10^3/ul (0.0-0.5); EOSINOPHILS % 0.4 % (0.0-7.0); HEMATOCRIT 36.9 % (42.0-52.0); HEMOGLOBIN 11.7 g/dl (14.0-18.0); LYMPHOCYTES # 1.8 10^3/ul (0.8-2.9); LYMPHOCYTES % 10.8 % (15.0-51.0); MEAN CORPUSCULAR HGB CONC 31.7 g/dl (32.0-37.0); MEAN PLATELET VOLUME 10.8 fl (7.4-10.4); MONOCYTE # 1.1 10^3/ul (0.3-0.9); MONOCYTES % 6.9 % (0.0-11.0); NEUTROPHIL # 13.3 10^3/ul (1.6-7.5); PLATELET COUNT 308 10^3/UL (140-415); RED CELL DISTRIBUTION WIDTH 15.9 % (11.5-14.5)
[2018-09-17 15:57] LABS: ANION GAP 10 (5-13); BLOOD UREA NITROGEN 24 mg/dl (7-20); CALCIUM 9.4 mg/dl (8.4-10.2); CARBON DIOXIDE 31 mmol/L (21-31); CHLORIDE 95 mmol/L (97-110); CREATININE 0.78 mg/dl (0.61-1.24); GLUCOSE 273 mg/dl (70-220); POTASSIUM 5.6 mmol/L (3.5-5.1); SODIUM 136 mmol/L (135-144)
[2018-09-17 16:27] LABS: C-REACTIVE PROTEIN 20.2 mg/dl (0.0-0.9)
[2018-09-17 16:32] LABS: ERYTHROCYTE SEDIMENTATION RATE 65 mm/Hr (0-20)
[2018-09-17] MEDS: VANCOMYCIN 1 GM (PMX) 250 ML IVPB (17:53)
[2018-09-17] MEDS ORDERED: ONDANSETRON 4 MG INJ IV (18:00)
[2018-09-17] MEDS ORDERED: ACETAMINOPHEN 325 MG TAB PO (18:00)
[2018-09-17] MEDS ORDERED: BACITRACIN 0.9 GM OINT (19:13)
[2018-09-17] MEDS ORDERED: DOCUSATE SODIUM 100 MG CAP PO (20:30)
[2018-09-17] MEDS ORDERED: VANCOMYCIN IV PER PHARMACY XX (20:30)
[2018-09-17] MEDS ORDERED: clonAZEPAM 0.5 MG TAB PO (20:30)
[2018-09-17] MEDS ORDERED: MAGNESIUM HYDROXIDE 30ML CUP PO (20:30)
[2018-09-17] MEDS ORDERED: BISACODYL 10 MG SUPP PR (20:30)
[2018-09-17] MEDS ORDERED: ACETAMINOPHEN 500 MG TAB PO ×4 (20:30→21:30)
[2018-09-17] MEDS ORDERED: GLUCAGON 1 MG INJ IM (21:00)
[2018-09-17] MEDS ORDERED: GLUCOSE GEL 15 GRAM TUBE PO (21:00)
[2018-09-17] MEDS: ACCU-CHEK XX (21:00)
[2018-09-17] MEDS ORDERED: ACCU-CHEK XX (21:00)
[2018-09-17] MEDS: METOPROLOL 25 MG TAB PO (21:58)
[2018-09-17] MEDS: VALPROIC ACID LIQUID CUP 250 MG/5 ML CUP PO (22:00)
[2018-09-17] MEDS: APIXABAN 5 MG TABLET PO (22:00)
[2018-09-17] MEDS: QUETIAPINE 100 MG TAB PO (22:01)
[2018-09-17] MEDS: DONEPEZIL 5 MG TAB PO (22:01)
[2018-09-17] MEDS: ATORVASTATIN 10 MG TAB PO (22:01)
[2018-09-17] MEDS: INSULIN ASPART [NOVOLOG] 3 ML PEN SC (22:05)
[2018-09-17] MEDS: INSULIN GLARGINE [LANTus] (100 UNITS/ML) SYG SC (22:06)
[2018-09-17] MEDS: MEROPENEM 1 GM/50ML(PMX) 50 ML IVPB (22:18)
[2018-09-17 22:56] LABS: HEMOGLOBIN A1C 7.4 % (0-5.9)
[2018-09-17] MEDS ORDERED: PENDING SANTYL ORDER FOR WOUND CARE XX (23:00)
[2018-09-18] MEDS ORDERED: PIPER-TAZO 3.375 GM IV (PMX) 100 ML IVPB
[2018-09-18] MEDS: ACCU-CHEK XX ×5 (01:48→21:34)
[2018-09-18] MEDS: MEROPENEM 1 GM/50ML(PMX) 50 ML IVPB ×3 (06:05→22:30)
[2018-09-18] MEDS: VANCOMYCIN 750 MG (PMX) 250 ML IVPB ×2 (06:34→17:32)
[2018-09-18 07:21] LABS: ADD MAN DIFF? NO
[2018-09-18 07:28] LABS: BASOPHILS % 0.3 % (0.0-2.0); EOSINOPHILS # 0.2 10^3/ul (0.0-0.5); EOSINOPHILS % 1.5 % (0.0-7.0); HEMATOCRIT 41.2 % (42.0-52.0); HEMOGLOBIN 13.1 g/dl (14.0-18.0); LYMPHOCYTES # 2.5 10^3/ul (0.8-2.9); LYMPHOCYTES % 18.1 % (15.0-51.0); MEAN CORPUSCULAR HEMOGLOBIN 25.9 pg (29.0-33.0); MEAN CORPUSCULAR HGB CONC 31.8 g/dl (32.0-37.0); MEAN CORPUSCULAR VOLUME 81.6 fl (82.0-101.0); MEAN PLATELET VOLUME 10.7 fl (7.4-10.4); MONOCYTE # 1.2 10^3/ul (0.3-0.9); MONOCYTES % 8.8 % (0.0-11.0); NEUTROPHIL # 9.6 10^3/ul (1.6-7.5); NEUTROPHILS % 70.9 % (39.0-77.0); PLATELET COUNT 295 10^3/UL (140-415); RED BLOOD COUNT 5.05 10^6/ul (4.70-6.10); RED CELL DISTRIBUTION WIDTH 16.1 % (11.5-14.5)
[2018-09-18 07:28] LABS: WHITE BLOOD COUNT 13.6 10^3/ul (4.8-10.8)
[2018-09-18 07:54] LABS: ALANINE AMINOTRANSFERASE 19 IU/L (13-69); ALBUMIN 3.8 g/dl (3.3-4.9); ALBUMIN/GLOBULIN RATIO 0.97; ALKALINE PHOSPHATASE 211 IU/L (42-121); ANION GAP 6 (5-13); ASPARTATE AMINO TRANSFERASE 36 IU/L (15-46); BILIRUBIN,INDIRECT 0.5 mg/dl (0-1.1); BILIRUBIN,TOTAL 0.5 mg/dl (0.2-1.3); BLOOD UREA NITROGEN 18 mg/dl (7-20); CALCIUM 9.9 mg/dl (8.4-10.2); CARBON DIOXIDE 31 mmol/L (21-31); CHLORIDE 102 mmol/L (97-110); CREATININE 0.55 mg/dl (0.61-1.24); GLUCOSE 147 mg/dl (70-220); POTASSIUM 4.8 mmol/L (3.5-5.1); SODIUM 139 mmol/L (135-144); TOTAL PROTEIN 7.7 g/dl (6.1-8.1)
[2018-09-18] MEDS: INSULIN ASPART [NOVOLOG] 3 ML PEN SC ×4 (08:00→21:33)
[2018-09-18] MEDS: metFORMIN 500 MG TAB PO ×2 (08:56→17:32)
[2018-09-18] MEDS: LINAGLIPTIN 5 MG TABLET PO (08:56)
[2018-09-18] MEDS: ASCORBIC ACID 500 MG TAB PO (08:56)
[2018-09-18] MEDS: APIXABAN 5 MG TABLET PO ×2 (08:57→21:27)
[2018-09-18] MEDS: BENAZEPRIL 10 MG TAB PO (08:57)
[2018-09-18] MEDS: FUROSEMIDE 40 MG TAB GTB (08:57)
[2018-09-18] MEDS: METOPROLOL 25 MG TAB PO ×2 (08:57→21:27)
[2018-09-18] MEDS: ZINC SULFATE 220 MG CAP PO (08:58)
[2018-09-18] MEDS: ACETAMINOPHEN 500 MG TAB PO ×2 (08:58→21:28)
[2018-09-18] MEDS: VALPROIC ACID LIQUID CUP 250 MG/5 ML CUP PO ×2 (08:58→21:26)
[2018-09-18] MEDS: LANSOPRAZOLE 30 MG CAP PO (08:58)
[2018-09-18] MEDS: DIGOXIN 0.125 MG TAB PO (12:31)
[2018-09-18] MEDS: ATORVASTATIN 10 MG TAB PO (21:27)
[2018-09-18] MEDS: DONEPEZIL 5 MG TAB PO (21:28)
[2018-09-18] MEDS: QUETIAPINE 100 MG TAB PO (21:28)
[2018-09-18] MEDS: CEFTRIAXONE 1 GM/50 ML (PMX) 50 ML IVPB (21:29)
[2018-09-18] MEDS: INSULIN GLARGINE [LANTus] (100 UNITS/ML) SYG SC (21:34)
[2018-09-18] MEDS: metroNIDAZOLE 500 MG/NS (PMX) 100 ML IVPB (23:01)
[2018-09-19] MEDS: ACCU-CHEK XX ×5 (02:26→20:47)
[2018-09-19] MEDS: MEROPENEM 1 GM/50ML(PMX) 50 ML IVPB (05:08)
[2018-09-19] MEDS: metroNIDAZOLE 500 MG/NS (PMX) 100 ML IVPB ×3 (05:42→22:35)
[2018-09-19 06:04] LABS: VANCOMYCIN,TROUGH 10.6 ug/ml (10.0-20.0)
[2018-09-19] MEDS: VANCOMYCIN 750 MG (PMX) 250 ML IVPB (07:07)
[2018-09-19] MEDS: INSULIN ASPART [NOVOLOG] 3 ML PEN SC ×4 (08:00→20:34)
[2018-09-19] MEDS: metFORMIN 500 MG TAB PO ×2 (08:02→17:50)
[2018-09-19] MEDS: LANSOPRAZOLE 30 MG CAP PO (08:02)
[2018-09-19] MEDS: LINAGLIPTIN 5 MG TABLET PO (08:02)
[2018-09-19] MEDS: ASCORBIC ACID 500 MG TAB PO (08:43)
[2018-09-19] MEDS: BENAZEPRIL 10 MG TAB PO (08:43)
[2018-09-19] MEDS: ACETAMINOPHEN 500 MG TAB PO ×2 (08:43→20:43)
[2018-09-19] MEDS: VALPROIC ACID LIQUID CUP 250 MG/5 ML CUP PO ×2 (08:43→20:40)
[2018-09-19] MEDS: ZINC SULFATE 220 MG CAP PO (08:44)
[2018-09-19] MEDS: FUROSEMIDE 40 MG TAB GTB (08:44)
[2018-09-19] MEDS: APIXABAN 5 MG TABLET PO ×2 (08:44→20:43)
[2018-09-19] MEDS: METOPROLOL 25 MG TAB PO ×2 (08:45→20:43)
[2018-09-19] MEDS: POVIDONE IODINE 10% 28.4 GM OINT TOP (08:45)
[2018-09-19] MEDS: DIGOXIN 0.125 MG TAB PO (14:08)
[2018-09-19] MEDS: CEFTRIAXONE 1 GM/50 ML (PMX) 50 ML IVPB (17:51)
[2018-09-19] MEDS: VANCOMYCIN HCL 0.85 GM in SOD CHLORIDE 0.9% 250 ML IVPB (18:40)
[2018-09-19] MEDS: DONEPEZIL 5 MG TAB PO (20:41)
[2018-09-19] MEDS: QUETIAPINE 100 MG TAB PO (20:41)
[2018-09-19] MEDS: INSULIN GLARGINE [LANTus] (100 UNITS/ML) SYG SC (20:44)
[2018-09-19] MEDS: ATORVASTATIN 10 MG TAB PO (20:44)
[2018-09-20] MEDS: ACCU-CHEK XX ×5 (01:09→20:35)
[2018-09-20] MEDS: metroNIDAZOLE 500 MG/NS (PMX) 100 ML IVPB ×3 (05:31→22:10)
[2018-09-20] MEDS: VANCOMYCIN HCL 0.85 GM in SOD CHLORIDE 0.9% 250 ML IVPB ×2 (06:37→18:09)
[2018-09-20 06:42] LABS: BLOOD UREA NITROGEN 20 mg/dl (7-20)
[2018-09-20 06:42] LABS: CREATININE 0.53 mg/dl (0.61-1.24)
[2018-09-20] MEDS: GLUCOSE GEL 15 GRAM TUBE BUCCAL ×2 (07:57→08:18)
[2018-09-20] MEDS: INSULIN ASPART [NOVOLOG] 3 ML PEN SC ×4 (08:00→20:35)
[2018-09-20] MEDS: VALPROIC ACID LIQUID CUP 250 MG/5 ML CUP PO ×2 (09:33→20:24)
[2018-09-20] MEDS: ZINC SULFATE 220 MG CAP PO (09:34)
[2018-09-20] MEDS: LANSOPRAZOLE 30 MG CAP PO (09:34)
[2018-09-20] MEDS: METOPROLOL 25 MG TAB PO ×2 (09:34→20:26)
[2018-09-20] MEDS: BENAZEPRIL 10 MG TAB PO (09:34)
[2018-09-20] MEDS: ASCORBIC ACID 500 MG TAB PO (09:34)
[2018-09-20] MEDS: FUROSEMIDE 40 MG TAB GTB (09:35)
[2018-09-20] MEDS: APIXABAN 5 MG TABLET PO ×2 (09:35→20:26)
[2018-09-20] MEDS: ACETAMINOPHEN 500 MG TAB PO ×2 (09:35→20:25)
[2018-09-20] MEDS: LINAGLIPTIN 5 MG TABLET PO (09:35)
[2018-09-20] MEDS: POVIDONE IODINE 10% 28.4 GM OINT TOP (09:36)
[2018-09-20] MEDS: metFORMIN 500 MG TAB PO ×2 (09:47→18:15)
[2018-09-20] MEDS: DIGOXIN 0.125 MG TAB PO (13:17)
[2018-09-20] MEDS: CEFTRIAXONE 1 GM/50 ML (PMX) 50 ML IVPB (19:47)
[2018-09-20] MEDS: QUETIAPINE 100 MG TAB PO (20:24)
[2018-09-20] MEDS: ATORVASTATIN 10 MG TAB PO (20:25)
[2018-09-20] MEDS: DONEPEZIL 5 MG TAB PO (20:26)
[2018-09-20] MEDS: INSULIN GLARGINE [LANTus] (100 UNITS/ML) SYG SC (20:35)
[2018-09-21] MEDS: ACCU-CHEK XX ×5 (02:00→20:47)
[2018-09-21] MEDS: metroNIDAZOLE 500 MG/NS (PMX) 100 ML IVPB ×2 (05:30→14:13)
[2018-09-21] MEDS: VANCOMYCIN HCL 0.85 GM in SOD CHLORIDE 0.9% 250 ML IVPB ×2 (06:13→18:46)
[2018-09-21] MEDS: INSULIN ASPART [NOVOLOG] 3 ML PEN SC ×4 (07:51→20:47)
[2018-09-21] MEDS: LINAGLIPTIN 5 MG TABLET PO (08:38)
[2018-09-21] MEDS: METOPROLOL 25 MG TAB PO ×2 (08:39→20:45)
[2018-09-21] MEDS: ASCORBIC ACID 500 MG TAB PO (08:39)
[2018-09-21] MEDS: LANSOPRAZOLE 30 MG CAP PO (08:39)
[2018-09-21] MEDS: VALPROIC ACID LIQUID CUP 250 MG/5 ML CUP PO ×2 (08:39→20:44)
[2018-09-21] MEDS: BENAZEPRIL 10 MG TAB PO (08:40)
[2018-09-21] MEDS: ZINC SULFATE 220 MG CAP PO (08:40)
[2018-09-21] MEDS: FUROSEMIDE 40 MG TAB GTB (08:41)
[2018-09-21] MEDS: ACETAMINOPHEN 500 MG TAB PO ×2 (08:41→20:45)
[2018-09-21] MEDS: APIXABAN 5 MG TABLET PO ×2 (08:41→20:45)
[2018-09-21] MEDS: metFORMIN 500 MG TAB PO ×2 (08:43→17:30)
[2018-09-21] MEDS: POVIDONE IODINE 10% 28.4 GM OINT TOP (10:24)
[2018-09-21] MEDS: DIGOXIN 0.125 MG TAB PO (12:51)
[2018-09-21 17:34] LABS: VANCOMYCIN,TROUGH 15.6 ug/ml (10.0-20.0)
[2018-09-21] MEDS: ATORVASTATIN 10 MG TAB PO (20:44)
[2018-09-21] MEDS: QUETIAPINE 100 MG TAB PO (20:45)
[2018-09-21] MEDS: DONEPEZIL 5 MG TAB PO (20:45)
[2018-09-21] MEDS: INSULIN GLARGINE [LANTus] (100 UNITS/ML) SYG SC (20:47)
[2018-09-21] MEDS: CEFTRIAXONE 1 GM/50 ML (PMX) 50 ML IVPB (20:48)
[2018-09-22] MEDS: metroNIDAZOLE 500 MG/NS (PMX) 100 ML IVPB ×4 (00:09→21:20)
[2018-09-22] MEDS: ACCU-CHEK XX ×5 (00:54→21:00)
[2018-09-22] MEDS: VANCOMYCIN HCL 0.85 GM in SOD CHLORIDE 0.9% 250 ML IVPB ×2 (06:21→18:19)
[2018-09-22] MEDS: INSULIN ASPART [NOVOLOG] 3 ML PEN SC ×4 (08:00→21:18)
[2018-09-22] MEDS: metFORMIN 500 MG TAB PO ×2 (08:00→17:33)
[2018-09-22] MEDS: DEXTROSE 50% 50 ML SYRINGE IV (08:05)
[2018-09-22] MEDS: LINAGLIPTIN 5 MG TABLET PO (08:15)
[2018-09-22] MEDS: ACETAMINOPHEN 500 MG TAB PO ×2 (08:42→21:19)
[2018-09-22] MEDS: ZINC SULFATE 220 MG CAP PO (08:42)
[2018-09-22] MEDS: LANSOPRAZOLE 30 MG CAP PO (08:42)
[2018-09-22] MEDS: ASCORBIC ACID 500 MG TAB PO (08:42)
[2018-09-22] MEDS: VALPROIC ACID LIQUID CUP 250 MG/5 ML CUP PO ×2 (08:42→21:20)
[2018-09-22] MEDS: BENAZEPRIL 10 MG TAB PO (08:42)
[2018-09-22] MEDS: APIXABAN 5 MG TABLET PO ×2 (08:42→21:19)
[2018-09-22] MEDS: METOPROLOL 25 MG TAB PO ×2 (08:43→21:19)
[2018-09-22] MEDS: FUROSEMIDE 40 MG TAB GTB (08:43)
[2018-09-22] MEDS: POVIDONE IODINE 10% 28.4 GM OINT TOP (08:43)
[2018-09-22] MEDS: DIGOXIN 0.125 MG TAB PO (13:17)
[2018-09-22] MEDS: CEFTRIAXONE 1 GM/50 ML (PMX) 50 ML IVPB (17:41)
[2018-09-22] MEDS: DONEPEZIL 5 MG TAB PO (21:18)
[2018-09-22] MEDS: INSULIN GLARGINE [LANTus] (100 UNITS/ML) SYG SC (21:18)
[2018-09-22] MEDS: ATORVASTATIN 10 MG TAB PO (21:19)
[2018-09-22] MEDS: QUETIAPINE 100 MG TAB PO (21:19)
[2018-09-23] MEDS: ACCU-CHEK XX ×5 (01:39→20:40)
[2018-09-23] MEDS: metroNIDAZOLE 500 MG/NS (PMX) 100 ML IVPB ×3 (05:07→22:25)
[2018-09-23] MEDS: VANCOMYCIN HCL 0.85 GM in SOD CHLORIDE 0.9% 250 ML IVPB ×2 (06:00→20:22)
[2018-09-23] MEDS: INSULIN ASPART [NOVOLOG] 3 ML PEN SC ×4 (08:00→20:34)
[2018-09-23] MEDS: metFORMIN 500 MG TAB PO ×2 (08:00→17:41)
[2018-09-23] MEDS: LINAGLIPTIN 5 MG TABLET PO (09:00)
[2018-09-23] MEDS: GLUCOSE GEL 15 GRAM TUBE BUCCAL (09:03)
[2018-09-23] MEDS: LANSOPRAZOLE 30 MG CAP PO (09:39)
[2018-09-23] MEDS: ZINC SULFATE 220 MG CAP PO (09:39)
[2018-09-23] MEDS: METOPROLOL 25 MG TAB PO ×2 (09:39→20:40)
[2018-09-23] MEDS: FUROSEMIDE 40 MG TAB GTB (09:39)
[2018-09-23] MEDS: VALPROIC ACID LIQUID CUP 250 MG/5 ML CUP PO ×2 (09:39→20:23)
[2018-09-23] MEDS: BENAZEPRIL 10 MG TAB PO (09:39)
[2018-09-23] MEDS: ASCORBIC ACID 500 MG TAB PO (09:39)
[2018-09-23] MEDS: APIXABAN 5 MG TABLET PO ×2 (09:40→20:24)
[2018-09-23] MEDS: ACETAMINOPHEN 500 MG TAB PO ×2 (09:40→20:24)
[2018-09-23] MEDS: POVIDONE IODINE 10% 28.4 GM OINT TOP (09:40)
[2018-09-23 10:33] LABS: ADD MAN DIFF? NO
[2018-09-23 10:36] LABS: WHITE BLOOD COUNT 10.8 10^3/ul (4.8-10.8)
[2018-09-23 10:36] LABS: BASOPHIL # 0.1 10^3/ul (0.0-0.1); BASOPHILS % 0.6 % (0.0-2.0); EOSINOPHILS # 0.1 10^3/ul (0.0-0.5); EOSINOPHILS % 1.3 % (0.0-7.0); HEMOGLOBIN 11.8 g/dl (14.0-18.0); LYMPHOCYTES # 1.5 10^3/ul (0.8-2.9); LYMPHOCYTES % 14.2 % (15.0-51.0); MEAN CORPUSCULAR HGB CONC 31.9 g/dl (32.0-37.0); MEAN CORPUSCULAR VOLUME 81.7 fl (82.0-101.0); MEAN PLATELET VOLUME 10.2 fl (7.4-10.4); MONOCYTE # 0.9 10^3/ul (0.3-0.9); MONOCYTES % 8.4 % (0.0-11.0); NEUTROPHILS % 74.8 % (39.0-77.0); PLATELET COUNT 343 10^3/UL (140-415); RED BLOOD COUNT 4.53 10^6/ul (4.70-6.10)
[2018-09-23 10:59] LABS: ANION GAP 6 (5-13); BLOOD UREA NITROGEN 14 mg/dl (7-20); CALCIUM 9.4 mg/dl (8.4-10.2); CARBON DIOXIDE 32 mmol/L (21-31); CHLORIDE 106 mmol/L (97-110); GLUCOSE 131 mg/dl (70-220); POTASSIUM 4.3 mmol/L (3.5-5.1); SODIUM 144 mmol/L (135-144)
[2018-09-23] MEDS: DIGOXIN 0.125 MG TAB PO (13:00)
[2018-09-23] MEDS ORDERED: FISH OIL 1,000 MG CAP PO (17:00)
[2018-09-23] MEDS: CEFTRIAXONE 1 GM/50 ML (PMX) 50 ML IVPB (18:54)
[2018-09-23] MEDS: QUETIAPINE 100 MG TAB PO (20:24)
[2018-09-23] MEDS: DONEPEZIL 5 MG TAB PO (20:24)
[2018-09-23] MEDS: ATORVASTATIN 10 MG TAB PO (20:24)
[2018-09-23] MEDS: INSULIN GLARGINE [LANTus] (100 UNITS/ML) SYG SC (20:33)
[2018-09-24] MEDS: ACCU-CHEK XX ×5 (02:00→20:51)
[2018-09-24] MEDS: metroNIDAZOLE 500 MG/NS (PMX) 100 ML IVPB ×3 (05:55→22:11)
[2018-09-24] MEDS: VITAMIN B COMPLEX/VIT C CAP PO (08:59)
[2018-09-24] MEDS: INSULIN ASPART [NOVOLOG] 3 ML PEN SC ×4 (09:01→20:51)
[2018-09-24] MEDS: FISH OIL 1,000 MG CAP PO (09:07)
[2018-09-24] MEDS: LINAGLIPTIN 5 MG TABLET PO (09:07)
[2018-09-24] MEDS: ASCORBIC ACID 500 MG TAB PO (09:07)
[2018-09-24] MEDS: LANSOPRAZOLE 30 MG CAP PO (09:07)
[2018-09-24] MEDS: METOPROLOL 25 MG TAB PO ×2 (09:07→20:48)
[2018-09-24] MEDS: BENAZEPRIL 10 MG TAB PO (09:08)
[2018-09-24] MEDS: ZINC SULFATE 220 MG CAP PO (09:08)
[2018-09-24] MEDS: ACETAMINOPHEN 500 MG TAB PO ×2 (09:08→20:49)
[2018-09-24] MEDS: APIXABAN 5 MG TABLET PO ×2 (09:08→20:48)
[2018-09-24] MEDS: FUROSEMIDE 40 MG TAB GTB (09:08)
[2018-09-24] MEDS: VALPROIC ACID LIQUID CUP 250 MG/5 ML CUP PO ×2 (09:09→20:47)
[2018-09-24] MEDS: POVIDONE IODINE 10% 28.4 GM OINT TOP (09:12)
[2018-09-24] MEDS: metFORMIN 500 MG TAB PO ×2 (09:12→17:45)
[2018-09-24] MEDS: VANCOMYCIN HCL 0.85 GM in SOD CHLORIDE 0.9% 250 ML IVPB ×2 (10:46→23:24)
[2018-09-24] MEDS: DIGOXIN 0.125 MG TAB PO (14:18)
[2018-09-24] MEDS: CEFTRIAXONE 1 GM/50 ML (PMX) 50 ML IVPB (19:00)
[2018-09-24] MEDS: QUETIAPINE 100 MG TAB PO (20:47)
[2018-09-24] MEDS: ATORVASTATIN 10 MG TAB PO (20:47)
[2018-09-24] MEDS: DONEPEZIL 5 MG TAB PO (20:49)
[2018-09-24] MEDS: INSULIN GLARGINE [LANTus] (100 UNITS/ML) SYG SC (20:51)
[2018-09-25] MEDS: ACCU-CHEK XX ×5 (02:00→22:41)
[2018-09-25] MEDS: metroNIDAZOLE 500 MG/NS (PMX) 100 ML IVPB ×2 (05:36→14:23)
[2018-09-25] MEDS: INSULIN ASPART [NOVOLOG] 3 ML PEN SC ×4 (07:58→21:00)
[2018-09-25] MEDS: VANCOMYCIN HCL 0.85 GM in SOD CHLORIDE 0.9% 250 ML IVPB ×2 (08:44→22:30)
[2018-09-25] MEDS: VALPROIC ACID LIQUID CUP 250 MG/5 ML CUP PO ×2 (08:44→22:30)
[2018-09-25] MEDS: LINAGLIPTIN 5 MG TABLET PO (08:45)
[2018-09-25] MEDS: FISH OIL 1,000 MG CAP PO (08:45)
[2018-09-25] MEDS: FUROSEMIDE 40 MG TAB GTB (08:46)
[2018-09-25] MEDS: LANSOPRAZOLE 30 MG CAP PO (08:46)
[2018-09-25] MEDS: ACETAMINOPHEN 500 MG TAB PO ×2 (08:46→22:30)
[2018-09-25] MEDS: APIXABAN 5 MG TABLET PO ×2 (08:46→22:29)
[2018-09-25] MEDS: ASCORBIC ACID 500 MG TAB PO (08:46)
[2018-09-25] MEDS: METOPROLOL 25 MG TAB PO ×2 (08:47→22:29)
[2018-09-25] MEDS: BENAZEPRIL 10 MG TAB PO (08:47)
[2018-09-25] MEDS: POVIDONE IODINE 10% 28.4 GM OINT TOP (08:48)
[2018-09-25] MEDS: VITAMIN B COMPLEX/VIT C CAP PO (08:49)
[2018-09-25] MEDS: ZINC SULFATE 220 MG CAP PO (08:49)
[2018-09-25] MEDS: metFORMIN 500 MG TAB PO ×2 (08:49→17:47)
[2018-09-25 09:43] LABS: BLOOD UREA NITROGEN 18 mg/dl (7-20)
[2018-09-25 09:43] LABS: CREATININE 0.48 mg/dl (0.61-1.24)
[2018-09-25] MEDS: DIGOXIN 0.125 MG TAB PO (14:25)
[2018-09-25] MEDS: CEFTRIAXONE 1 GM/50 ML (PMX) 50 ML IVPB (17:52)
[2018-09-25 20:19] LABS: VANCOMYCIN,TROUGH 14.4 ug/ml (10.0-20.0)
[2018-09-25 21:41] LABS: ANION GAP 8 (5-13); BLOOD UREA NITROGEN 19 mg/dl (7-20); CALCIUM 8.5 mg/dl (8.4-10.2); CARBON DIOXIDE 28 mmol/L (21-31); CHLORIDE 102 mmol/L (97-110); GLUCOSE 165 mg/dl (70-220); POTASSIUM 4.3 mmol/L (3.5-5.1); SODIUM 138 mmol/L (135-144)
[2018-09-25] MEDS: QUETIAPINE 100 MG TAB PO (22:29)
[2018-09-25] MEDS: ATORVASTATIN 10 MG TAB PO (22:30)
[2018-09-25] MEDS: DONEPEZIL 5 MG TAB PO (22:30)
[2018-09-25] MEDS: INSULIN GLARGINE [LANTus] (100 UNITS/ML) SYG SC (22:41)
[2018-09-26] MEDS: metroNIDAZOLE 500 MG/NS (PMX) 100 ML IVPB ×4 (00:47→23:55)
[2018-09-26] MEDS: ACCU-CHEK XX ×5 (02:00→21:00)
[2018-09-26 06:39] LABS: ADD MAN DIFF? NO
[2018-09-26 06:55] LABS: BASOPHIL # 0.1 10^3/ul (0.0-0.1); BASOPHILS % 0.5 % (0.0-2.0); EOSINOPHILS # 0.3 10^3/ul (0.0-0.5); EOSINOPHILS % 1.9 % (0.0-7.0); HEMATOCRIT 37.9 % (42.0-52.0); HEMOGLOBIN 12.2 g/dl (14.0-18.0); LYMPHOCYTES # 3.4 10^3/ul (0.8-2.9); MEAN CORPUSCULAR HEMOGLOBIN 26.1 pg (29.0-33.0); MEAN CORPUSCULAR HGB CONC 32.2 g/dl (32.0-37.0); MEAN CORPUSCULAR VOLUME 81.2 fl (82.0-101.0); MEAN PLATELET VOLUME 10.9 fl (7.4-10.4); MONOCYTES % 6.9 % (0.0-11.0); PLATELET COUNT 308 10^3/UL (140-415); RED BLOOD COUNT 4.67 10^6/ul (4.70-6.10); RED CELL DISTRIBUTION WIDTH 16.6 % (11.5-14.5)
[2018-09-26 06:55] LABS: WHITE BLOOD COUNT 14.9 10^3/ul (4.8-10.8)
[2018-09-26] MEDS: metFORMIN 500 MG TAB PO ×2 (08:00→17:18)
[2018-09-26] MEDS: INSULIN ASPART [NOVOLOG] 3 ML PEN SC ×4 (08:00→21:00)
[2018-09-26 08:06] LABS: ANISOCYTOSIS 1+ (0-0); EOSINOPHILS % (M) 2 % (0-7); LYMPHOCYTES #M 4.7 10^3/ul (0.8-2.9); LYMPHOCYTES % (M) 32 % (15-51); MICROCYTOSIS 1+ (0-0); MONOCYTE #M 0.5 10^3/ul (0.3-0.9); MONOCYTES % (M) 4 % (0-11); PLATELET ESTIMATE NORMAL; POIKILOCYTOSIS 1+ (0-0); POLYCHROMASIA 3+ (0-0); REACTIVE LYMPHOCYTES #M 0.1 10^3/ul (0.0-0.0); REACTIVE LYMPHOCYTES% (M) 1 % (0-0); SEGMENTED NEUTROPHILS (M) % 61 % (39-77)
[2018-09-26] MEDS: GLUCOSE GEL 15 GRAM TUBE PO (08:10)
[2018-09-26] MEDS: DEXTROSE 50% 50 ML SYRINGE IV (08:26)
[2018-09-26] MEDS: ASCORBIC ACID 500 MG TAB PO (08:45)
[2018-09-26] MEDS: VITAMIN B COMPLEX/VIT C CAP PO (08:45)
[2018-09-26] MEDS: APIXABAN 5 MG TABLET PO (08:45)
[2018-09-26] MEDS: FISH OIL 1,000 MG CAP PO (08:45)
[2018-09-26] MEDS: VALPROIC ACID LIQUID CUP 250 MG/5 ML CUP PO (08:45)
[2018-09-26] MEDS: LANSOPRAZOLE 30 MG CAP PO (08:45)
[2018-09-26] MEDS: METOPROLOL 25 MG TAB PO (08:46)
[2018-09-26] MEDS: ACETAMINOPHEN 500 MG TAB PO (08:46)
[2018-09-26] MEDS: BENAZEPRIL 10 MG TAB PO (08:46)
[2018-09-26] MEDS: ZINC SULFATE 220 MG CAP PO (08:46)
[2018-09-26] MEDS: LINAGLIPTIN 5 MG TABLET PO (08:47)
[2018-09-26] MEDS: FUROSEMIDE 40 MG TAB GTB (08:47)
[2018-09-26] MEDS: VANCOMYCIN HCL 0.85 GM in SOD CHLORIDE 0.9% 250 ML IVPB ×2 (08:47→21:31)
[2018-09-26] MEDS: POVIDONE IODINE 10% 28.4 GM OINT TOP (08:48)
[2018-09-26] MEDS: DIGOXIN 0.125 MG TAB PO (13:49)
[2018-09-26] MEDS: CEFTRIAXONE 1 GM/50 ML (PMX) 50 ML IVPB (18:13)
[2018-09-26] MEDS: DONEPEZIL 5 MG TAB GTB (20:59)
[2018-09-26] MEDS: ATORVASTATIN 10 MG TAB GTB (21:00)
[2018-09-26] MEDS ORDERED: METOPROLOL 25 MG TAB GTB (21:00)
[2018-09-26] MEDS: QUETIAPINE 100 MG TAB GTB (21:00)
[2018-09-26] MEDS: ACETAMINOPHEN 650MG/20.3ML CUP GTB (21:00)
[2018-09-26] MEDS: APIXABAN 5 MG TABLET GTB (21:01)
[2018-09-26] MEDS: INSULIN GLARGINE [LANTus] (100 UNITS/ML) SYG SC (21:03)
[2018-09-26] MEDS: VALPROIC ACID LIQUID CUP 250 MG/5 ML CUP GTB (21:04)
[2018-09-27] MEDS: ACCU-CHEK XX ×5 (02:00→21:00)
[2018-09-27 05:03] LABS: ADD MAN DIFF? NO
[2018-09-27 05:05] LABS: BASOPHIL # 0.1 10^3/ul (0.0-0.1); BASOPHILS % 0.5 % (0.0-2.0); EOSINOPHILS # 0.4 10^3/ul (0.0-0.5); EOSINOPHILS % 2.9 % (0.0-7.0); HEMATOCRIT 34.7 % (42.0-52.0); HEMOGLOBIN 11.2 g/dl (14.0-18.0); LYMPHOCYTES % 22.8 % (15.0-51.0); MEAN CORPUSCULAR HGB CONC 32.3 g/dl (32.0-37.0); MEAN CORPUSCULAR VOLUME 80.5 fl (82.0-101.0); MEAN PLATELET VOLUME 10.4 fl (7.4-10.4); MONOCYTE # 0.9 10^3/ul (0.3-0.9); MONOCYTES % 6.9 % (0.0-11.0); NEUTROPHIL # 8.5 10^3/ul (1.6-7.5); NEUTROPHILS % 65.7 % (39.0-77.0); PLATELET COUNT 328 10^3/UL (140-415); RED BLOOD COUNT 4.31 10^6/ul (4.70-6.10); RED CELL DISTRIBUTION WIDTH 16.7 % (11.5-14.5)
[2018-09-27 05:37] LABS: CREATININE 0.52 mg/dl (0.61-1.24)
[2018-09-27 05:37] LABS: BLOOD UREA NITROGEN 19 mg/dl (7-20)
[2018-09-27] MEDS: metroNIDAZOLE 500 MG/NS (PMX) 100 ML IVPB ×3 (07:01→23:13)
[2018-09-27] MEDS: INSULIN ASPART [NOVOLOG] 3 ML PEN SC ×4 (07:52→21:00)
[2018-09-27] MEDS: metFORMIN 500 MG TAB PO ×2 (08:22→17:13)
[2018-09-27] MEDS: ACETAMINOPHEN 650MG/20.3ML CUP GTB ×2 (08:23→21:56)
[2018-09-27] MEDS: ASCORBIC ACID 500 MG TAB PO (08:23)
[2018-09-27] MEDS: LANSOPRAZOLE 30 MG CAP PO (08:23)
[2018-09-27] MEDS: VITAMIN B COMPLEX/VIT C CAP PO (08:23)
[2018-09-27] MEDS: ZINC SULFATE 220 MG CAP PO (08:23)
[2018-09-27] MEDS: FISH OIL 1,000 MG CAP PO (08:23)
[2018-09-27] MEDS: APIXABAN 5 MG TABLET GTB ×2 (08:23→21:53)
[2018-09-27] MEDS: VALPROIC ACID LIQUID CUP 250 MG/5 ML CUP GTB ×2 (08:23→21:57)
[2018-09-27] MEDS: LINAGLIPTIN 5 MG TABLET PO (08:23)
[2018-09-27] MEDS: FUROSEMIDE 40 MG TAB GTB (08:24)
[2018-09-27] MEDS: BENAZEPRIL 10 MG TAB PO (08:24)
[2018-09-27] MEDS: VANCOMYCIN HCL 0.85 GM in SOD CHLORIDE 0.9% 250 ML IVPB ×2 (08:25→21:48)
[2018-09-27] MEDS: POVIDONE IODINE 10% 28.4 GM OINT TOP (08:25)
[2018-09-27] MEDS: METOPROLOL 25 MG TAB GTB ×2 (08:25→22:01)
[2018-09-27] MEDS: DIGOXIN 0.125 MG TAB PO (13:41)
[2018-09-27] MEDS: AMMONIUM LACTATE 12% 225 GM LOT TOP (17:12)
[2018-09-27] MEDS: CEFTRIAXONE 1 GM/50 ML (PMX) 50 ML IVPB (18:45)
[2018-09-27] MEDS: INSULIN GLARGINE [LANTus] (100 UNITS/ML) SYG SC (21:48)
[2018-09-27] MEDS: CLOTRIMAZOLE 1% 30 GM CR TOP (21:48)
[2018-09-27] MEDS: ATORVASTATIN 10 MG TAB GTB (21:53)
[2018-09-27] MEDS: DONEPEZIL 5 MG TAB GTB (21:53)
[2018-09-27] MEDS: QUETIAPINE 100 MG TAB GTB (21:56)
[2018-09-28] MEDS: ACCU-CHEK XX ×5 (02:00→20:09)
[2018-09-28 06:03] LABS: ADD MAN DIFF? NO
[2018-09-28 06:07] LABS: BASOPHILS % 0.3 % (0.0-2.0); EOSINOPHILS # 0.4 10^3/ul (0.0-0.5); EOSINOPHILS % 3.4 % (0.0-7.0); HEMOGLOBIN 10.8 g/dl (14.0-18.0); LYMPHOCYTES # 2.4 10^3/ul (0.8-2.9); LYMPHOCYTES % 23.1 % (15.0-51.0); MEAN CORPUSCULAR HEMOGLOBIN 25.9 pg (29.0-33.0); MEAN CORPUSCULAR HGB CONC 31.8 g/dl (32.0-37.0); MEAN CORPUSCULAR VOLUME 81.5 fl (82.0-101.0); MEAN PLATELET VOLUME 10.5 fl (7.4-10.4); MONOCYTE # 0.8 10^3/ul (0.3-0.9); MONOCYTES % 7.5 % (0.0-11.0); NEUTROPHIL # 6.7 10^3/ul (1.6-7.5); NEUTROPHILS % 64.9 % (39.0-77.0); PLATELET COUNT 343 10^3/UL (140-415); RED BLOOD COUNT 4.17 10^6/ul (4.70-6.10); RED CELL DISTRIBUTION WIDTH 16.7 % (11.5-14.5)
[2018-09-28 06:07] LABS: WHITE BLOOD COUNT 10.3 10^3/ul (4.8-10.8)
[2018-09-28] MEDS: metroNIDAZOLE 500 MG/NS (PMX) 100 ML IVPB ×3 (07:02→23:10)
[2018-09-28] MEDS: INSULIN ASPART [NOVOLOG] 3 ML PEN SC ×4 (08:00→20:08)
[2018-09-28] MEDS: VALPROIC ACID LIQUID CUP 250 MG/5 ML CUP GTB ×2 (10:22→20:22)
[2018-09-28] MEDS: VANCOMYCIN HCL 0.85 GM in SOD CHLORIDE 0.9% 250 ML IVPB ×2 (10:22→20:10)
[2018-09-28] MEDS: metFORMIN 500 MG TAB PO ×2 (10:22→18:05)
[2018-09-28] MEDS: APIXABAN 5 MG TABLET GTB ×2 (10:25→20:18)
[2018-09-28] MEDS: FUROSEMIDE 40 MG TAB GTB (10:25)
[2018-09-28] MEDS: METOPROLOL 25 MG TAB GTB ×2 (10:26→20:19)
[2018-09-28] MEDS: BENAZEPRIL 10 MG TAB PO (10:27)
[2018-09-28] MEDS: ACETAMINOPHEN 650MG/20.3ML CUP GTB ×2 (10:27→20:21)
[2018-09-28] MEDS: LANSOPRAZOLE 30 MG CAP PO (10:27)
[2018-09-28] MEDS: FISH OIL 1,000 MG CAP PO (10:27)
[2018-09-28] MEDS: VITAMIN B COMPLEX/VIT C CAP PO (10:27)
[2018-09-28] MEDS: ASCORBIC ACID 500 MG TAB PO (10:28)
[2018-09-28] MEDS: ZINC SULFATE 220 MG CAP PO (10:28)
[2018-09-28] MEDS: LINAGLIPTIN 5 MG TABLET PO (10:28)
[2018-09-28] MEDS: AMMONIUM LACTATE 12% 225 GM LOT TOP (10:28)
[2018-09-28] MEDS: POVIDONE IODINE 10% 28.4 GM OINT TOP (10:29)
[2018-09-28] MEDS: CLOTRIMAZOLE 1% 30 GM CR TOP ×2 (10:29→23:10)
[2018-09-28] MEDS: DIGOXIN 0.125 MG TAB PO (15:05)
[2018-09-28] MEDS: CEFTRIAXONE 1 GM/50 ML (PMX) 50 ML IVPB (18:47)
[2018-09-28] MEDS: INSULIN GLARGINE [LANTus] (100 UNITS/ML) SYG SC (20:09)
[2018-09-28] MEDS: ATORVASTATIN 10 MG TAB GTB (20:18)
[2018-09-28] MEDS: QUETIAPINE 100 MG TAB GTB (20:18)
[2018-09-28] MEDS: DONEPEZIL 5 MG TAB GTB (20:19)
[2018-09-29] MEDS: ACCU-CHEK XX ×5 (02:00→20:59)
[2018-09-29] MEDS: metroNIDAZOLE 500 MG/NS (PMX) 100 ML IVPB ×3 (05:54→22:47)
[2018-09-29] MEDS: INSULIN ASPART [NOVOLOG] 3 ML PEN SC ×4 (08:00→20:30)
[2018-09-29] MEDS: ASCORBIC ACID 500 MG TAB PO (08:03)
[2018-09-29] MEDS: LANSOPRAZOLE 30 MG CAP PO (08:03)
[2018-09-29] MEDS: VALPROIC ACID LIQUID CUP 250 MG/5 ML CUP GTB ×2 (08:03→20:20)
[2018-09-29] MEDS: ZINC SULFATE 220 MG CAP PO (08:03)
[2018-09-29] MEDS: metFORMIN 500 MG TAB PO ×2 (08:03→17:31)
[2018-09-29] MEDS: FISH OIL 1,000 MG CAP PO (08:03)
[2018-09-29] MEDS: VITAMIN B COMPLEX/VIT C CAP PO (08:03)
[2018-09-29] MEDS: ACETAMINOPHEN 650MG/20.3ML CUP GTB ×2 (08:03→20:23)
[2018-09-29] MEDS: APIXABAN 5 MG TABLET GTB ×2 (08:03→20:24)
[2018-09-29] MEDS: LINAGLIPTIN 5 MG TABLET PO (08:03)
[2018-09-29] MEDS: BENAZEPRIL 10 MG TAB PO (08:05)
[2018-09-29] MEDS: FUROSEMIDE 40 MG TAB GTB (08:05)
[2018-09-29] MEDS: METOPROLOL 25 MG TAB GTB ×2 (08:05→20:22)
[2018-09-29] MEDS: POVIDONE IODINE 10% 28.4 GM OINT TOP (08:06)
[2018-09-29] MEDS: AMMONIUM LACTATE 12% 225 GM LOT TOP (08:06)
[2018-09-29] MEDS: CLOTRIMAZOLE 1% 30 GM CR TOP ×2 (08:06→20:30)
[2018-09-29 08:30] LABS: VANCOMYCIN,TROUGH 14.5 ug/ml (10.0-20.0)
[2018-09-29] MEDS: VANCOMYCIN HCL 0.85 GM in SOD CHLORIDE 0.9% 250 ML IVPB ×2 (09:13→20:19)
[2018-09-29] MEDS: DIGOXIN 0.125 MG TAB PO (12:58)
[2018-09-29] MEDS: CEFTRIAXONE 1 GM/50 ML (PMX) 50 ML IVPB (18:15)
[2018-09-29] MEDS: DONEPEZIL 5 MG TAB GTB (20:23)
[2018-09-29] MEDS: QUETIAPINE 100 MG TAB GTB (20:23)
[2018-09-29] MEDS: ATORVASTATIN 10 MG TAB GTB (20:26)
[2018-09-29] MEDS: INSULIN GLARGINE [LANTus] (100 UNITS/ML) SYG SC (20:29)
[2018-09-30] MEDS: ACCU-CHEK XX ×5 (01:31→21:00)
[2018-09-30] MEDS: metroNIDAZOLE 500 MG/NS (PMX) 100 ML IVPB ×2 (05:36→13:47)
[2018-09-30 06:07] LABS: ADD MAN DIFF? NO
[2018-09-30 06:12] LABS: WHITE BLOOD COUNT 11.3 10^3/ul (4.8-10.8)
[2018-09-30 06:12] LABS: BASOPHIL # 0.1 10^3/ul (0.0-0.1); BASOPHILS % 0.6 % (0.0-2.0); EOSINOPHILS # 0.3 10^3/ul (0.0-0.5); EOSINOPHILS % 2.6 % (0.0-7.0); HEMATOCRIT 41.2 % (42.0-52.0); LYMPHOCYTES # 2.6 10^3/ul (0.8-2.9); LYMPHOCYTES % 23.1 % (15.0-51.0); MEAN CORPUSCULAR HEMOGLOBIN 26.2 pg (29.0-33.0); MEAN CORPUSCULAR HGB CONC 31.6 g/dl (32.0-37.0); MEAN CORPUSCULAR VOLUME 82.9 fl (82.0-101.0); MEAN PLATELET VOLUME 10.4 fl (7.4-10.4); MONOCYTE # 0.9 10^3/ul (0.3-0.9); MONOCYTES % 8.3 % (0.0-11.0); NEUTROPHIL # 7.2 10^3/ul (1.6-7.5); NEUTROPHILS % 64.2 % (39.0-77.0); PLATELET COUNT 346 10^3/UL (140-415); RED BLOOD COUNT 4.97 10^6/ul (4.70-6.10); RED CELL DISTRIBUTION WIDTH 16.7 % (11.5-14.5)
[2018-09-30 06:35] LABS: ANION GAP 10 (5-13); BLOOD UREA NITROGEN 19 mg/dl (7-20); CALCIUM 9.5 mg/dl (8.4-10.2); CARBON DIOXIDE 26 mmol/L (21-31); CHLORIDE 108 mmol/L (97-110); GLUCOSE 72 mg/dl (70-220); POTASSIUM 4.7 mmol/L (3.5-5.1); SODIUM 144 mmol/L (135-144)
[2018-09-30 06:36] LABS: CREATININE 0.51 mg/dl (0.61-1.24)
[2018-09-30 06:36] LABS: BLOOD UREA NITROGEN 19 mg/dl (7-20)
[2018-09-30] MEDS: INSULIN ASPART [NOVOLOG] 3 ML PEN SC ×4 (07:56→22:21)
[2018-09-30] MEDS: metFORMIN 500 MG TAB PO ×2 (08:06→17:13)
[2018-09-30] MEDS: VALPROIC ACID LIQUID CUP 250 MG/5 ML CUP GTB ×2 (08:06→22:15)
[2018-09-30] MEDS: ASCORBIC ACID 500 MG TAB PO (08:10)
[2018-09-30] MEDS: LANSOPRAZOLE 30 MG CAP PO (08:10)
[2018-09-30] MEDS: APIXABAN 5 MG TABLET GTB ×2 (08:10→22:11)
[2018-09-30] MEDS: VITAMIN B COMPLEX/VIT C CAP PO (08:10)
[2018-09-30] MEDS: ZINC SULFATE 220 MG CAP PO (08:10)
[2018-09-30] MEDS: LINAGLIPTIN 5 MG TABLET PO (08:11)
[2018-09-30] MEDS: METOPROLOL 25 MG TAB GTB ×2 (08:11→22:12)
[2018-09-30] MEDS: FUROSEMIDE 40 MG TAB GTB (08:11)
[2018-09-30] MEDS: FISH OIL 1,000 MG CAP PO (08:11)
[2018-09-30] MEDS: BENAZEPRIL 10 MG TAB PO (08:11)
[2018-09-30] MEDS: VANCOMYCIN HCL 0.85 GM in SOD CHLORIDE 0.9% 250 ML IVPB ×2 (08:20→22:11)
[2018-09-30] MEDS: CLOTRIMAZOLE 1% 30 GM CR TOP ×2 (08:20→22:22)
[2018-09-30] MEDS: AMMONIUM LACTATE 12% 225 GM LOT TOP (08:20)
[2018-09-30] MEDS: ACETAMINOPHEN 650MG/20.3ML CUP GTB ×2 (08:20→22:11)
[2018-09-30] MEDS: POVIDONE IODINE 10% 28.4 GM OINT TOP (08:21)
[2018-09-30] MEDS: DIGOXIN 0.125 MG TAB PO (13:46)
[2018-09-30] MEDS: CEFTRIAXONE 1 GM/50 ML (PMX) 50 ML IVPB (18:03)
[2018-09-30] MEDS: ATORVASTATIN 10 MG TAB GTB (22:11)
[2018-09-30] MEDS: DONEPEZIL 5 MG TAB GTB (22:11)
[2018-09-30] MEDS: QUETIAPINE 100 MG TAB GTB (22:16)
[2018-09-30] MEDS: INSULIN GLARGINE [LANTus] (100 UNITS/ML) SYG SC (22:17)
[2018-10-01] MEDS: metroNIDAZOLE 500 MG/NS (PMX) 100 ML IVPB ×4 (00:13→22:20)
[2018-10-01] MEDS: ACCU-CHEK XX ×5 (02:15→20:57)
[2018-10-01] MEDS: INSULIN ASPART [NOVOLOG] 3 ML PEN SC ×4 (08:00→20:42)
[2018-10-01] MEDS: APIXABAN 5 MG TABLET GTB ×2 (08:23→20:34)
[2018-10-01] MEDS: VITAMIN B COMPLEX/VIT C CAP PO (08:23)
[2018-10-01] MEDS: ZINC SULFATE 220 MG CAP PO (08:23)
[2018-10-01] MEDS: FISH OIL 1,000 MG CAP PO (08:23)
[2018-10-01] MEDS: LINAGLIPTIN 5 MG TABLET PO (08:23)
[2018-10-01] MEDS: VANCOMYCIN HCL 0.85 GM in SOD CHLORIDE 0.9% 250 ML IVPB ×2 (08:23→20:35)
[2018-10-01] MEDS: FUROSEMIDE 40 MG TAB GTB (08:24)
[2018-10-01] MEDS: metFORMIN 500 MG TAB PO ×2 (08:24→17:13)
[2018-10-01] MEDS: LANSOPRAZOLE 30 MG CAP PO (08:24)
[2018-10-01] MEDS: ASCORBIC ACID 500 MG TAB PO (08:24)
[2018-10-01] MEDS: BENAZEPRIL 10 MG TAB PO (08:24)
[2018-10-01] MEDS: VALPROIC ACID LIQUID CUP 250 MG/5 ML CUP GTB ×2 (08:26→20:34)
[2018-10-01] MEDS: METOPROLOL 25 MG TAB GTB ×2 (08:26→20:33)
[2018-10-01] MEDS: ACETAMINOPHEN 650MG/20.3ML CUP GTB ×2 (08:26→20:31)
[2018-10-01] MEDS: POVIDONE IODINE 10% 28.4 GM OINT TOP (08:27)
[2018-10-01] MEDS: AMMONIUM LACTATE 12% 225 GM LOT TOP (08:27)
[2018-10-01] MEDS: CLOTRIMAZOLE 1% 30 GM CR TOP ×2 (08:27→20:57)
[2018-10-01] MEDS: DIGOXIN 0.125 MG TAB PO (14:01)
[2018-10-01] MEDS: CEFTRIAXONE 1 GM/50 ML (PMX) 50 ML IVPB (18:20)
[2018-10-01] MEDS: QUETIAPINE 100 MG TAB GTB (20:34)
[2018-10-01] MEDS: ATORVASTATIN 10 MG TAB GTB (20:35)
[2018-10-01] MEDS: DONEPEZIL 5 MG TAB GTB (20:35)
[2018-10-01] MEDS: INSULIN GLARGINE [LANTus] (100 UNITS/ML) SYG SC (20:42)
[2018-10-02] MEDS: ACCU-CHEK XX ×5 (02:35→21:04)
[2018-10-02] MEDS: metroNIDAZOLE 500 MG/NS (PMX) 100 ML IVPB ×3 (05:06→22:40)
[2018-10-02 05:32] LABS: ADD MAN DIFF? NO
[2018-10-02 05:40] LABS: BASOPHIL # 0.1 10^3/ul (0.0-0.1); BASOPHILS % 0.6 % (0.0-2.0); EOSINOPHILS # 0.3 10^3/ul (0.0-0.5); EOSINOPHILS % 2.1 % (0.0-7.0); HEMATOCRIT 38.8 % (42.0-52.0); HEMOGLOBIN 12.2 g/dl (14.0-18.0); LYMPHOCYTES % 25.5 % (15.0-51.0); MEAN CORPUSCULAR HGB CONC 31.4 g/dl (32.0-37.0); MEAN CORPUSCULAR VOLUME 82.7 fl (82.0-101.0); MEAN PLATELET VOLUME 10.4 fl (7.4-10.4); MONOCYTE # 1.1 10^3/ul (0.3-0.9); MONOCYTES % 8.9 % (0.0-11.0); NEUTROPHIL # 7.4 10^3/ul (1.6-7.5); PLATELET COUNT 342 10^3/UL (140-415); RED BLOOD COUNT 4.69 10^6/ul (4.70-6.10); RED CELL DISTRIBUTION WIDTH 17.2 % (11.5-14.5)
[2018-10-02 05:40] LABS: WHITE BLOOD COUNT 11.9 10^3/ul (4.8-10.8)
[2018-10-02 06:22] LABS: ANION GAP 6 (5-13); BLOOD UREA NITROGEN 15 mg/dl (7-20); CALCIUM 9.4 mg/dl (8.4-10.2); CARBON DIOXIDE 30 mmol/L (21-31); CHLORIDE 107 mmol/L (97-110); CREATININE 0.51 mg/dl (0.61-1.24); POTASSIUM 4.2 mmol/L (3.5-5.1); SODIUM 143 mmol/L (135-144)
[2018-10-02 06:25] LABS: GLUCOSE 48 mg/dl (70-220)
[2018-10-02] MEDS: DEXTROSE 50% 50 ML SYRINGE IV (06:42)
[2018-10-02 07:40] LABS: GLUCOSE 89 mg/dl (70-220)
[2018-10-02] MEDS: INSULIN ASPART [NOVOLOG] 3 ML PEN SC ×4 (07:57→20:37)
[2018-10-02] MEDS: VANCOMYCIN HCL 0.85 GM in SOD CHLORIDE 0.9% 250 ML IVPB ×2 (08:39→20:37)
[2018-10-02] MEDS: VALPROIC ACID LIQUID CUP 250 MG/5 ML CUP GTB ×2 (08:40→20:39)
[2018-10-02] MEDS: ACETAMINOPHEN 650MG/20.3ML CUP GTB ×2 (08:40→20:43)
[2018-10-02] MEDS: LANSOPRAZOLE 30 MG CAP PO (08:40)
[2018-10-02] MEDS: VITAMIN B COMPLEX/VIT C CAP PO (08:40)
[2018-10-02] MEDS: LINAGLIPTIN 5 MG TABLET PO (08:40)
[2018-10-02] MEDS: FISH OIL 1,000 MG CAP PO (08:41)
[2018-10-02] MEDS: ASCORBIC ACID 500 MG TAB PO (08:41)
[2018-10-02] MEDS: ZINC SULFATE 220 MG CAP PO (08:41)
[2018-10-02] MEDS: FUROSEMIDE 40 MG TAB GTB (08:42)
[2018-10-02] MEDS: APIXABAN 5 MG TABLET GTB ×2 (08:42→20:39)
[2018-10-02] MEDS: BENAZEPRIL 10 MG TAB PO (08:43)
[2018-10-02] MEDS: METOPROLOL 25 MG TAB GTB ×2 (08:43→20:41)
[2018-10-02] MEDS: metFORMIN 500 MG TAB PO ×2 (08:57→17:54)
[2018-10-02] MEDS: DIGOXIN 0.125 MG TAB PO (14:24)
[2018-10-02] MEDS: CLOTRIMAZOLE 1% 30 GM CR TOP ×2 (14:25→21:06)
[2018-10-02] MEDS: AMMONIUM LACTATE 12% 225 GM LOT TOP (14:25)
[2018-10-02] MEDS: POVIDONE IODINE 10% 28.4 GM OINT TOP (14:26)
[2018-10-02] MEDS: REPAGLINIDE 1 MG TAB PO (17:54)
[2018-10-02] MEDS: CEFTRIAXONE 1 GM/50 ML (PMX) 50 ML IVPB (18:01)
[2018-10-02] MEDS: INSULIN GLARGINE [LANTus] (100 UNITS/ML) SYG SC (20:35)
[2018-10-02] MEDS: ATORVASTATIN 10 MG TAB GTB (20:39)
[2018-10-02] MEDS: DONEPEZIL 5 MG TAB GTB (20:39)
[2018-10-02] MEDS: QUETIAPINE 100 MG TAB GTB (20:43)
[2018-10-02] MEDS ORDERED: INSULIN GLARGINE [LANTus] (100 UNITS/ML) SYG SC (21:00)
[2018-10-03] MEDS: ACCU-CHEK XX ×5 (02:31→17:13)
[2018-10-03] MEDS: metroNIDAZOLE 500 MG/NS (PMX) 100 ML IVPB ×2 (05:30→13:21)
[2018-10-03] MEDS: BENAZEPRIL 10 MG TAB PO (08:16)
[2018-10-03] MEDS: REPAGLINIDE 1 MG TAB PO ×3 (08:16→17:35)
[2018-10-03] MEDS: ACETAMINOPHEN 650MG/20.3ML CUP GTB (08:16)
[2018-10-03] MEDS: VITAMIN B COMPLEX/VIT C CAP PO (08:16)
[2018-10-03] MEDS: APIXABAN 5 MG TABLET GTB (08:17)
[2018-10-03] MEDS: LANSOPRAZOLE 30 MG CAP PO (08:18)
[2018-10-03] MEDS: ASCORBIC ACID 500 MG TAB PO (08:19)
[2018-10-03] MEDS: FUROSEMIDE 40 MG TAB GTB (08:19)
[2018-10-03] MEDS: METOPROLOL 25 MG TAB GTB (08:20)
[2018-10-03] MEDS: ZINC SULFATE 220 MG CAP PO (08:21)
[2018-10-03] MEDS: FISH OIL 1,000 MG CAP PO (08:21)
[2018-10-03] MEDS: EMPAGLIFLOZIN 10 MG TABLET PO (08:21)
[2018-10-03] MEDS: LINAGLIPTIN 5 MG TABLET PO (08:21)
[2018-10-03] MEDS: VALPROIC ACID LIQUID CUP 250 MG/5 ML CUP GTB (08:22)
[2018-10-03] MEDS: metFORMIN 500 MG TAB PO ×2 (08:25→18:03)
[2018-10-03] MEDS: VANCOMYCIN HCL 0.85 GM in SOD CHLORIDE 0.9% 250 ML IVPB (08:26)
[2018-10-03] MEDS: INSULIN ASPART [NOVOLOG] 3 ML PEN SC ×3 (08:37→18:03)
[2018-10-03] MEDS: AMMONIUM LACTATE 12% 225 GM LOT TOP (11:39)
[2018-10-03] MEDS: CLOTRIMAZOLE 1% 30 GM CR TOP (11:39)
[2018-10-03] MEDS: POVIDONE IODINE 10% 28.4 GM OINT TOP (11:40)
[2018-10-03] MEDS: DIGOXIN 0.125 MG TAB PO (12:07)
== END 2018-10-03 18:33 | DRG 872 ==
LOC: E/R 14:52 → PP2 19:18
DX: A41.9 Sepsis, unspecified organism (principal); M86.8X7 Other osteomyelitis, ankle and foot; F02.81 Dementia in other diseases classified elsewhere, unspecified severity, with behavioral disturbance; E11.52 Type 2 diabetes mellitus with diabetic peripheral angiopathy with gangrene; I50.22 Chronic systolic (congestive) heart failure; E44.1 Mild protein-calorie malnutrition; E11.621 Type 2 diabetes mellitus with foot ulcer; E11.69 Type 2 diabetes mellitus with other specified complication; L97.529 Non-pressure chronic ulcer of other part of left foot with unspecified severity; L97.519 Non-pressure chronic ulcer of other part of right foot with unspecified severity; I25.10 Atherosclerotic heart disease of native coronary artery without angina pectoris; I48.91 Unspecified atrial fibrillation; R13.10 Dysphagia, unspecified; Z93.1 Gastrostomy status; G30.9 Alzheimer's disease, unspecified; Z95.1 Presence of aortocoronary bypass graft; Z89.421 Acquired absence of other right toe(s); E78.5 Hyperlipidemia, unspecified; E11.40 Type 2 diabetes mellitus with diabetic neuropathy, unspecified; B35.1 Tinea unguium; M47.896 Other spondylosis, lumbar region; I11.0 Hypertensive heart disease with heart failure; Z86.73 Personal history of transient ischemic attack (TIA), and cerebral infarction without residual deficits; Z68.20 Body mass index [BMI] 20.0-20.9, adult
CPT/HCPCS: 71045; 73630; 73630-LT; 80048; 80053; 80202; 82565; 82947; 82962; 83036; 84520; 85025; 85651; 86140; 87040-91; 87070; 87081; 96374; 97110; 97161; 97530; 99285-25

== ENCOUNTER 2018-11-03 11:25 | Inpatient (IN) | payer MEDICARE, BC ==
[2018-11-03 12:00] LABS: ADD MAN DIFF? NO
[2018-11-03 12:11] LABS: BASOPHIL # 0.1 10^3/ul (0.0-0.1); BASOPHILS % 0.4 % (0.0-2.0); HEMATOCRIT 45.8 % (42.0-52.0); HEMOGLOBIN 14.1 g/dl (14.0-18.0); LYMPHOCYTES % 6.2 % (15.0-51.0); MEAN CORPUSCULAR HEMOGLOBIN 26.2 pg (29.0-33.0); MEAN CORPUSCULAR HGB CONC 30.8 g/dl (32.0-37.0); MEAN PLATELET VOLUME 11.5 fl (7.4-10.4); MONOCYTE # 0.5 10^3/ul (0.3-0.9); MONOCYTES % 2.9 % (0.0-11.0); NEUTROPHILS % 89.9 % (39.0-77.0); PLATELET COUNT 360 10^3/UL (140-415); RED BLOOD COUNT 5.39 10^6/ul (4.70-6.10); RED CELL DISTRIBUTION WIDTH 16.2 % (11.5-14.5)
[2018-11-03 12:11] LABS: WHITE BLOOD COUNT 15.6 10^3/ul (4.8-10.8)
[2018-11-03] MEDS: SOD CHLORIDE 0.9% 1,800 ML IV (12:11)
[2018-11-03 12:20] LABS: ALANINE AMINOTRANSFERASE 29 IU/L (13-69); ALKALINE PHOSPHATASE 245 IU/L (42-121); ANION GAP 19 (5-13); ASPARTATE AMINO TRANSFERASE 55 IU/L (15-46); BILIRUBIN,INDIRECT 0.5 mg/dl (0-1.1); BILIRUBIN,TOTAL 0.5 mg/dl (0.2-1.3); BLOOD UREA NITROGEN 28 mg/dl (7-20); CALCIUM 9.5 mg/dl (8.4-10.2); CARBON DIOXIDE 16 mmol/L (21-31); CHLORIDE 107 mmol/L (97-110); GLUCOSE 298 mg/dl (70-220); SODIUM 142 mmol/L (135-144)
[2018-11-03 12:22] LABS: INR 1.49; PROTIME 18.1 Sec (11.9-14.9); PT RATIO 1.4
[2018-11-03 12:23] LABS: PARTIAL THROMBOPLASTIN TIME 26.3 Sec (23.0-35.0)
[2018-11-03 12:34] LABS: TROPONIN-I 0.246 ng/ml (0.000-0.120)
[2018-11-03] MEDS: MEROPENEM 1 GM/50ML(PMX) 50 ML IVPB (13:00)
[2018-11-03 13:03] LABS: AADO2 Arterial 32.5 mmHg (7.0-24.0); Arterial Base Excess -9.8 mmol/L (-3.0-3); Arterial Blood Gas Oxygen Sat 94.9 mmHG (95.0-100.0); Arterial COHb 0.1 % (0.0-3.0); Arterial Fraction of Oxyhgb 94.5 % (93.0-99.0); Arterial HCO3 14.5 mmol/L (22.0-26.0); Arterial MetHb 0.3 % (0.0-1.5); Arterial pCO2 27.8 mmhg (35-45); MODE ROOM AIR; Site LB
[2018-11-03] MEDS: VANCOMYCIN 1 GM (PMX) 250 ML IVPB (14:00)
[2018-11-03 15:37] LABS: ADD UMIC YES; UR ASCORBIC ACID 40 mg/dL (NEGATIVE); UR BILIRUBIN (Dip) NEGATIVE (NEGATIVE); UR BLOOD (Dip) 2+ mg/dL (NEGATIVE); UR CLARITY SLIGHTLY CLOUDY (CLEAR); UR COLOR YELLOW (YELLOW); UR GLUCOSE (Dip) 3+ mg/dL (NEGATIVE); UR KETONES (Dip) TRACE mg/dL (NEGATIVE); UR LEUKOCYTE ESTERASE (Dip) TRACE Leu/ul (NEGATIVE); UR NITRITE (Dip) NEGATIVE (NEGATIVE); UR RBC 15 /HPF (0-5); UR SPECIFIC GRAVITY (Dip) 1.022 (1.003-1.030); UR TOTAL PROTEIN (Dip) NEGATIVE (NEGATIVE); UR UROBILINOGEN (Dip) NEGATIVE (NEGATIVE); UR WBC 3 /HPF (0-5)
[2018-11-03 15:43] LABS: LACTIC ACID 8.2 mmol/L (0.5-2.0)
[2018-11-03] MEDS ORDERED: HYDROCODONE/APAP (5/325) TAB PO (17:00)
[2018-11-03] MEDS ORDERED: ACETAMINOPHEN 650MG/20.3ML CUP PO (17:00)
[2018-11-03] MEDS ORDERED: ONDANSETRON 4 MG INJ IV (17:00)
[2018-11-03] MEDS ORDERED: ZOLPIDEM 5 MG TAB PO (17:00)
[2018-11-03] MEDS ORDERED: ALBUTEROL 0.083% (NEB) 2.5 MG/3 ML AMP NEB (17:00)
[2018-11-03] MEDS ORDERED: HYDROmorphONE 0.5 MG/0.5 ML SYG IV (17:00)
[2018-11-03] MEDS ORDERED: LORAZEPAM 2 MG INJ IV (17:00)
[2018-11-03] MEDS ORDERED: MAGNESIUM HYDROXIDE 30ML CUP PO (17:00)
[2018-11-03] MEDS ORDERED: NACL 0.9% 3 ML SYG IV (17:00)
[2018-11-03] MEDS ORDERED: IPRATROPIUM (NEB) 0.5 MG/2.5 ML AMP NEB (17:00)
[2018-11-03] MEDS ORDERED: DOCUSATE SODIUM 100 MG CAP PO (17:00)
[2018-11-03] MEDS: SOD CHLORIDE 0.9% 1,000 ML IV (18:04)
[2018-11-03] MEDS ORDERED: AMIODARONE 150MG/D5W BOLUS 100 ML (18:56)
[2018-11-03] MEDS ORDERED: PHENYLephrine 20MG IN 250 ML 250 ML IV (19:00)
[2018-11-03] MEDS ORDERED: EPINEPHrine 0.1 MG/ML SYG ×4 (19:39→20:01)
[2018-11-04] MEDS ORDERED: PANTOPRAZOLE 40 MG INJ IV (06:00)
== END 2018-11-03 20:04 | disposition expired | DRG 871 ==
LOC: E/R 11:25 → ICU 13:07
PROC: 0BH17EZ Insertion of Endotracheal Airway into Trachea, Via Natural or Artificial Opening (ICD-10-PCS; principal; 2018-11-03)
PROC: 5A12012 Performance of Cardiac Output, Single, Manual (ICD-10-PCS; 2018-11-03)
DX: A41.9 Sepsis, unspecified organism (principal); R65.21 Severe sepsis with septic shock; J18.9 Pneumonia, unspecified organism; J96.01 Acute respiratory failure with hypoxia; G93.41 Metabolic encephalopathy; I50.20 Unspecified systolic (congestive) heart failure; I25.10 Atherosclerotic heart disease of native coronary artery without angina pectoris; E78.5 Hyperlipidemia, unspecified; Z86.73 Personal history of transient ischemic attack (TIA), and cerebral infarction without residual deficits; E11.51 Type 2 diabetes mellitus with diabetic peripheral angiopathy without gangrene; I48.91 Unspecified atrial fibrillation; E86.0 Dehydration; E11.65 Type 2 diabetes mellitus with hyperglycemia; R79.9 Abnormal finding of blood chemistry, unspecified; E11.621 Type 2 diabetes mellitus with foot ulcer; L97.529 Non-pressure chronic ulcer of other part of left foot with unspecified severity; L97.519 Non-pressure chronic ulcer of other part of right foot with unspecified severity; R13.10 Dysphagia, unspecified; Z93.1 Gastrostomy status; Z95.1 Presence of aortocoronary bypass graft; Z87.891 Personal history of nicotine dependence; G30.9 Alzheimer's disease, unspecified; F02.80 Dementia in other diseases classified elsewhere, unspecified severity, without behavioral disturbance, psychotic disturbance, mood disturbance, and anxiety; I46.9 Cardiac arrest, cause unspecified
CPT/HCPCS: 31500; 36600; 70450; 71045; 80053; 81001; 82803; 82962; 83605; 84443; 84484; 85025; 85610; 85730; 87040-91; 87086; 92950; 93005; 96374; 99285-25